=== PATIENT | male | born 1950 | race Caucasian/White ===

== ENCOUNTER 2022-05-10 14:29 | Inpatient (IN) | payer OTHER ==
[2022-05-10] MEDS ORDERED: ASPIRIN 81 MG CHEWABLE TABLET ONE (14:50)
[2022-05-10] MEDS ORDERED: HEPARIN 5000 UNIT/ML 1 ML VIAL ONE ×2 (14:50→15:32)
[2022-05-10] MEDS ORDERED: CLOPIDOGREL 75 MG TABLET ONE (14:51)
[2022-05-10] MEDS ORDERED: MORPHINE 2 MG/ML SYR ONE (14:51)
[2022-05-10] MEDS ORDERED: ONDANSETRON 4 MG/2 ML VIAL ONE (14:51)
[2022-05-10] MEDS ORDERED: NA CHLORIDE 0.9% 1,000 ML ONE (14:52)
[2022-05-10] MEDS ORDERED: ATROPINE SULF 1 MG/10 ML SYR IV ONE (14:55)
[2022-05-10] MEDS ORDERED: HEPARIN 10,000 UNIT/10 ML VIAL IV ONE (14:55)
[2022-05-10] MEDS ORDERED: FENTANYL CITR 100 MCG/2 ML ONE (14:55)
[2022-05-10] MEDS ORDERED: MIDAZOLAM HCL 2 MG/2 ML INJ ONE (14:55)
[2022-05-10] MEDS ORDERED: TICAGRELOR 90 MG TABLET PO ONE (14:56)
--- NOTE | 2022-05-10 14:57 | EDPHYS ---
Physician Documentation [facility] Name: Navjot Meneses Age: 72 yrs Sex: Male : 1950 Arrival Date: 05/10/2022 Time: 14:32 Bed 2 Private MD: ED Physician Darin Camacho HPI: 05/10 14:51 This 72 yrs old Male presents to ER via Unassigned with complaints of Chest darrick Pain. 14:51 The patient or guardian reports chest pain that is located primarily in the substernal darrick area. Onset: at 13:30. The pain does not radiate. Associated signs and symptoms: The patient has no apparent associated signs or symptoms. The chest pain is described as a heaviness, a pressure. Duration: The patient or guardian reports a single episode, that is still ongoing. Modifying factors: The symptoms are alleviated by nothing. the symptoms are aggravated by activity, deep breath, exertion. Severity of pain: At its worst the pain was moderate in the emergency department the pain has resolved. The patient has not experienced similar symptoms in the past. Historical: - Allergies: 15:04 PENICILLINS; iw 15:04 Sulfa (Sulfonamide Antibiotics); iw - PMHx: 15:05 neuropathy; iw - Immunization history:: Adult Immunizations up to date. - Social history:: Smoking status: Patient reports the use of cigarette tobacco products, smokes one pack cigarettes per day. - Family history:: not pertinent. ROS: 14:51 Constitutional: Negative for fever, chills, and weight loss, Eyes: Negative for injury, darrick pain, redness, and discharge, ENT: Negative for injury, pain, and discharge, Neck: Negative for injury, pain, and swelling, Respiratory: Negative for shortness of breath, cough, wheezing, and pleuritic chest pain, Abdomen/GI: Negative for abdominal pain, nausea, vomiting, diarrhea, and constipation, Back: Negative for injury and pain, : Negative for injury, bleeding, discharge, and swelling, MS/Extremity: Negative for injury and deformity, Skin: Negative for injury, rash, and discoloration, Neuro: Negative for headache, weakness, numbness, tingling, and seizure, Psych: Negative for depression, anxiety, suicide ideation, homicidal ideation, and hallucinations, Allergy/Immunology: Negative for hives, rash, and allergies, Endocrine: Negative for neck swelling, polydipsia, polyuria, polyphagia, and marked weight changes, Hematologic/Lymphatic: Negative for swollen nodes, abnormal bleeding, and unusual bruising. 14:51 Cardiovascular: Positive for chest pain, of the chest. Exam: 14:51 Constitutional: This is a well developed, well nourished patient who is awake, alert, darrick and in no acute distress. Head/Face: Normocephalic, atraumatic. Eyes: Pupils equal round and reactive to light, extra-ocular motions intact. Lids and lashes normal. Conjunctiva and sclera are non-icteric and not injected. Cornea within normal limits. Periorbital areas with no swelling, redness, or edema. ENT: Nares patent. No nasal discharge, no septal abnormalities noted. Tympanic membranes are normal and external auditory canals are clear. Oropharynx with no redness, swelling, or masses, exudates, or evidence of obstruction, uvula midline. Mucous membranes moist. Neck: Trachea midline, no thyromegaly or masses palpated, and no cervical lymphadenopathy. Supple, full range of motion without nuchal rigidity, or vertebral point tenderness. No Meningismus. Chest/axilla: Normal chest wall appearance and motion. Nontender with no deformity. No lesions are appreciated. Respiratory: Lungs have equal breath sounds bilaterally, clear to auscultation and percussion. No rales, rhonchi or wheezes noted. No increased work of breathing, no retractions or nasal flaring. Abdomen/GI: Soft, non-tender, with normal bowel sounds. No distension or tympany. No guarding or rebound. No evidence of tenderness throughout. Back: No spinal tenderness. No costovertebral tenderness. Full range of motion. Male : Normal genitalia with no discharge or lesions. Skin: Warm, dry with normal turgor. Normal color with no rashes, no lesions, and no evidence of cellulitis. MS/ Extremity: Pulses equal, no cyanosis. Neurovascular intact. Full, normal range of motion. Neuro: Awake and alert, GCS 15, oriented to person, place, time, and situation. Cranial nerves II-XII grossly intact. Motor strength 5/5 in all extremities. Sensory grossly intact. Cerebellar exam normal. Normal gait. Psych: Awake, alert, with orientation to person, place and time. Behavior, mood, and affect are within normal limits. 14:51 Cardiovascular: Rate: normal, Rhythm: regular, Pulses: Pulses are 4+ in bilateral radial, brachial, femoral, popliteal, posterior tibial and and dorsalis pedis arteries.. Heart sounds: normal, Edema: is not appreciated, JVD: is not appreciated. 14:51 ECG was reviewed by the Attending Physician. Vital Signs: 14:58 BP 147 / 82; Pulse 79; Resp 18; Pulse Ox 95% on R/A; iw MDM: 14:38 Patient medically screened. [facility] 05/10 14:40 Order name: Basic Metabolic Panel [facility] 05/10 14:40 Order name: CBC with Diff 05/10 14:40 Order name: LFT's 05/10 14:40 Order name: Magnesium [facility] 05/10 14:40 Order name: NT PRO-BNP [facility] 05/10 14:40 Order name: PT-INR [facility] 05/10 14:40 Order name: Troponin HS [facility] 05/10 14:40 Order name: Lipase [facility] 05/10 14:40 Order name: SARS RAPID [facility] 05/10 14:40 Order name: EKG; Complete Time: 14:55 [facility] 05/10 14:40 Order name: Cardiac monitoring; Complete Time: 14:47 05/10 14:40 Order name: EKG - Nurse/Tech; Complete Time: 14:47 [facility] 05/10 14:40 Order name: IV Saline Lock; Complete Time: 15:03 [facility] 05/10 14:40 Order name: Labs collected and sent; Complete Time: 15:03 [facility] 05/10 14:40 Order name: O2 Per Protocol; Complete Time: 14:47 darrick 05/10 15:02 Order name: CONS Physician Consult [facility] 05/10 14:40 Order name: O2 Sat Monitoring; Complete Time: 14:47 [facility] EC:51 Rate is 77 beats/min. Rhythm is regular. QRS [place] is Normal. HI interval is normal. QRS darrick interval is normal. QT interval is normal. No Q waves. T waves are Normal. ST Segment is elevated in leads II, III, aVF, V3, V4, V5, V6. Clinical impression: Inferior IA - acute. Interpreted by me. Reviewed by me. Administered Medications: 14:45 CANCELLED (Duplicate Order): Aspirin Chewable Tablet 162 mg PO once darrick 14:57 Drug: morphine 2 mg {Note: pain 9/10, rass0.} Route: IVP; Infused Over: 4 mins; Site: ll1 right antecubital; 15:04 Follow up: Response: No adverse reaction; RASS: Alert and Calm (0) ll1 14:57 Drug: Zofran (Ondansetron) 4 mg Route: IVP; Site: right antecubital; ll1 15:04 Follow up: Response: No adverse reaction ll1 14:57 Drug: Brilinta - Ticagrelor 180 mg Route: PO; ll1 15:04 Follow up: Response: No adverse reaction ll1 14:58 Drug: Aspirin Chewable Tablet 324 mg Route: PO; ll1 15:04 Follow up: Response: No adverse reaction ll1 14:58 Drug: NS 0.9% 1000 ml Route: IV; Rate: 1 bolus; Site: right antecubital; ll1 15:03 Follow up: Response: No adverse reaction; IV Status: Infusion continued; IV Intake: [id number] 15:02 CANCELLED (Physician Discretion): morphine 2 mg IVP once over 4 mins ll1 15:02 Not Given (Physician Discretion): Heparin (IA-Bolus No thrombolytic) - HEParin 60 ll1 units/kg IVP once; Max 5000 units 15:02 CANCELLED (Physician Discretion): Heparin (IA Drip) 12 units/kg/hr - (HEParin 11299 ll1 units, D5W 500 ml) IV at calculated rate Per protocol; Max initial rate 1000 units/hr 15:03 CANCELLED (Physician Discretion): NS 0.9% 1000 ml IV at 125 ml/hr continuous ll1 15:03 CANCELLED (Physician Discretion): PlaVIX (clopidogrel) 300 mg PO once ll1 15:03 CANCELLED (Physician Discretion): Tenecteplase 45 mg IV at per protocol once ll1 Disposition Summary: 05/10/22 14:57 Hospitalization Ordered Hospitalization Status: Inpatient Admission darrick Provider: Isrrael gAuilar cha Location: [facility] [employer] darrick Condition: Serious darrick Problem: new darrick Symptoms: are unchanged darrick Bed/Room Type: Standard darrick Room Assignment: darrick Diagnosis - ST elevation (STEMI) myocardial infarction of inferior wall darrick - ST elevation (STEMI) myocardial infarction involving other coronary artery of darrick anterior wall - Chest pain, unspecified darrick - Dyspnea darrick Forms: - Medication Reconciliation Form darrick - SBAR form darrick Signatures: Dispatcher [employer] EDMS Darin Camacho MD MD cha Williams, Irene, RN RN iw Lewis, Lynsay, RN RN ll1 Corrections: (The following items were deleted from the chart) 14:45 14:40 Aspirin Chewable Tablet 162 mg PO once ordered. [facility] 15:02 14:46 morphine 2 mg IVP once over 4 mins ordered. [place] [id number] 15:02 14:48 Heparin (IA Drip) 12 units/kg/hr - (HEParin 36047 units, D5W 500 ml) IV at ll1 calculated rate Per protocol; Max initial rate 1000 units/hr ordered. [facility] 15:03 14:40 Urine Dipstick-Ancillary ordered. [place] [id number] 15:03 14:40 NS 0.9% 1000 ml IV at 125 ml/hr continuous ordered. [place] [id number] 15:03 14:46 PlaVIX (clopidogrel) 300 mg PO once ordered. [place] [id number] 15:03 14:46 Tenecteplase 45 mg IV at per protocol once ordered. [place] [id number] 15:05 14:45 Chest Single View ordered. EDMS EDMS
--- NOTE | 2022-05-10 14:57 | ER ---
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 Coronavirus screen: At this time, the client does not indicate any symptoms associated with coronavirus-19. Onset of symptoms was May 10, 2022. 15:01 Initial Sepsis Screen: Does the patient meet any 2 criteria? No. Patient's initial ll1 sepsis screen is negative. Does the patient have a suspected source of infection? No. Patient's initial sepsis screen is negative. Risk Assessment: Do you want to hurt yourself or someone else? Patient reports no desire to harm self or others. 15:01 Method Of Arrival: Wheelchair ll1 15:01 Acuity: CHRIS 2 ll1 15:02 Ebola Screen: Patient denies travel to an Ebola-affected area in the 21 days before ll1 illness onset. Historical: - Allergies: 15:04 PENICILLINS; iw 15:04 Sulfa (Sulfonamide Antibiotics); iw - PMHx: 15:05 neuropathy; iw - Immunization history:: Adult Immunizations up to date. - Social history:: Smoking status: Patient reports the use of cigarette tobacco products, smokes one pack cigarettes per day. - Family history:: not pertinent. Screenin:02 Abuse screen: Denies threats or abuse. Nutritional screening: No deficits noted. ll1 Tuberculosis screening: No symptoms or risk factors identified. Fall Risk IV access (20 points). Total Matt Fall Scale indicates No Risk (0-24 pts). Assessment: 14:45 General: Appears distressed, Behavior is cooperative, appropriate for age. Pain: ll1 Complains of pain in chest Pain radiates to left arm Quality of pain is described as pressure, Pain began 1 day ago. Cardiovascular: Reports chest pain. 15:03 Reassessment: No changes from previously documented assessment. Patient and/or family ll1 updated on plan of care and expected duration. Pain level reassessed. Patient is alert, oriented x 3, equal unlabored respirations, skin warm/dry/pink. Vital Signs: 14:58 BP 147 / 82; Pulse 79; Resp 18; Pulse Ox 95% on R/A; iw ED Course: 14:32 Patient arrived in ED. am2 14:37 Nataliya Ray RN is Primary Nurse. ll1 14:37 Arm band placed on Patient placed in an exam room, on a stretcher. ll1 14:38 Darin Camacho MD is Attending Physician. darrick 14:56 Isrrael Aguilar MD is Hospitalizing Provider. [facility] 15:01 Triage completed. ll1 15:01 Inserted saline lock: 20 gauge in left forearm, using aseptic technique. Blood ll1 collected. 15:01 Inserted saline lock: 18 gauge in right antecubital area, using aseptic technique. ll1 Patient maintains SpO2 saturation greater than 95% on room air. 15:02 Patient has correct armband on for positive identification. Bed in low position. Call ll1 light in reach. Side rails up X2. Client placed on continuous cardiac and pulse oximetry monitoring. NIBP monitoring applied. campus monitor on. 15:04 No provider procedures requiring assistance completed. Patient admitted, IV remains in ll1 place. Administered Medications: 14:45 CANCELLED (Duplicate Order): Aspirin Chewable Tablet 162 mg PO once [facility] 14:57 Drug: morphine 2 mg {Note: pain 9/10, rass0.} Route: IVP; Infused Over: 4 mins; Site: ll1 right antecubital; 15:04 Follow up: Response: No adverse reaction; RASS: Alert and Calm (0) [facility] 14:57 Drug: Zofran (Ondansetron) 4 mg Route: IVP; Site: right antecubital; 1 15:04 Follow up: Response: No adverse reaction [facility] 14:57 Drug: Brilinta - Ticagrelor 180 mg Route: PO; ll1 15:04 Follow up: Response: No adverse reaction [facility] 14:58 Drug: Aspirin Chewable Tablet 324 mg Route: PO; 1 15:04 Follow up: Response: No adverse reaction [facility] 14:58 Drug: NS 0.9% 1000 ml Route: IV; Rate: 1 bolus; Site: right antecubital; ll1 15:03 Follow up: Response: No adverse reaction; IV Status: Infusion continued; IV Intake: [id number] 15:02 CANCELLED (Physician Discretion): morphine 2 mg IVP once over 4 mins ll1 15:02 Not Given (Physician Discretion): Heparin (NH-Bolus No thrombolytic) - HEParin 60 ll1 units/kg IVP once; Max 5000 units 15:02 CANCELLED (Physician Discretion): Heparin (NH Drip) 12 units/kg/hr - (HEParin 17521 ll1 units, D5W 500 ml) IV at calculated rate Per protocol; Max initial rate 1000 units/hr 15:03 CANCELLED (Physician Discretion): NS 0.9% 1000 ml IV at 125 ml/hr continuous ll1 15:03 CANCELLED (Physician Discretion): PlaVIX (clopidogrel) 300 mg PO once ll1 15:03 CANCELLED (Physician Discretion): Tenecteplase 45 mg IV at per protocol once ll1 Medication: 15:04 VIS not applicable for this client. ll1 Intake: 15:03 IV: 50ml; Total: 50ml. ll1 Outcome: 14:57 Decision to Hospitalize by Provider. darrick 15:05 Admitted to Ge[employer]chn[employer] Technician accompanied by tech, via stretcher, on monitor, with chart, Report ll1 called to bedside report Dr. Leary 15:05 Condition: stable 15:05 Instructed on the need for admit. 15:07 Patient left the ED. ll1 Signatures: Darin Camacho MD MD cha Williams, Irene, VETO RN iw Hilary Sandoval Lynsay, RN RN ll1 Corrections: (The following items were deleted from the chart) 15:07 14:58 BP 147 / 82; Pulse 79bpm; Resp 18bpm; ll1 iw
[2022-05-10] MEDS ORDERED: NA CHLORIDE 0.9% 500 ML ONE ×2 (14:58→17:36)
[2022-05-10 15:11] LABS: Absolute Lymphocytes (CBC) 0.7 K/uL (0.7-4.9); Hematocrit 48.1 % (39.6-49.0); Lymphocytes % 3.2 % (15.3-44.8); MCV 86.7 fL (80-100); MPV 7.4 fL (7.6-11.3); RBC Red Blood Cell Count 5.55 M/uL (4.33-5.43)
[2022-05-10] MEDS ORDERED: NOREPINEPHRINE BITARTRATE/D5W 4 MG/250 ML BAG IV ONE (15:15)
[2022-05-10 15:25] LABS: SARS-CoV-2 Antigen Rapid Res Negative (Negative)
[2022-05-10 15:29] LABS: Albumin 3.4 g/dL (3.4-5.0); Bilirubin Direct 0.1 mg/dL (0-0.2); Bilirubin Total 0.7 mg/dL (0.2-1.0); Magnesium 1.9 mg/dL (1.8-2.4); Potassium 3.8 mmol/L (3.5-5.1)
[2022-05-10] MEDS ORDERED: VERAPAMIL HCL 10 MG/4 ML VIAL IV ONE (15:29)
[2022-05-10] MEDS ORDERED: HEPARIN/D5W 25,000 UNIT/500 ML BAG IV ONE (15:29)
[2022-05-10 15:40] LABS: Troponin High Sensitivity 156.2 pg/mL (<58.9)
[2022-05-10] MEDS ORDERED: HEPA 1000U/500MLS 1,000 UNIT/500 ML BAG IV ONE (15:53)
[2022-05-10] MEDS ORDERED: FUROSEMIDE 20 MG/ 2ML VIAL ONE (16:11)
[2022-05-10 16:56] LABS: Blood Morphology Comment NOT SEEN (NOT SEEN); Platelet Estimate INCR; Toxic Granulation 2+
[2022-05-10] MEDS ORDERED: NITROGLYCERIN 0.4 MG/TAB SL ONE (17:04)
[2022-05-10] MEDS ORDERED: MORPHINE 4 MG/ML SYR ONE (17:11)
[2022-05-10] MEDS ORDERED: ACETAMINOPHEN 325 MG TABLET PO PRN (18:01)
[2022-05-10 18:30] LABS: Protime INR 1.35
--- NOTE | 2022-05-10 18:56 | P.HP ---
Certification for Inpatient Patient admitted to: Inpatient With expected LOS: >2 Midnights Patient will require the following post-hospital care: None Practitioner: I am a practitioner with admitting privileges, knowledge of patient current condition, hospital course, and medical plan of care. Services: Services provided to patient in accordance with Admission requirements found in Title 42 Section 412.3 of the Code of Federal Regulations Patient History Date of Service: 05/10/22 Reason for admission: ST-elevation myocardial infarction History of Present Illness: patient is a 72-year-old gentleman came into the emergency room with substernal chest pain. Pain was mainly in the left breast region with no radiation. Patient was having some shortness of breath. In the emergency room, EKG revealed ST elevation in the inferior leads as well as the lateral leads. Patient was given tenecteplase and aspirin and taken to the cardiac catheterization lab where patient was found to have 99% occlusion of the LAD as well as a 99% occlusion of the rights of coronary artery. Patient has stents placed in both of these arteries. patient was in recovery and is a little lethargic at this time. Patient will be admitted to the hospital. Patient also has a significant occlusion of the left circumflex artery and this will be reassessed on Friday. Will continue monitoring the patient in ICU on a heparin drip and continue with anti-platelet therapy as well as statin therapy. Will monitor the patient's hemodynamics closely. Patient will be admitted to the hospital into the critical care unit. Allergies Penicillins Adverse Reaction (Verified 05/10/22 19:50) Hives/Rash Sulfa (Sulfonamide Antibiotics) Adverse Reaction (Verified 05/10/22 19:50) Hives/Rash - Past Medical/Surgical History -: Neuropathy -: coronary artery disease -: cardiac catheterization with stent placement - Family History Father Family History: Reviewed- Non-Contributory - Social History Smoking Status: Former smoker Alcohol use: No CD- Drugs: No Review of Systems 10-point ROS is otherwise unremarkable Physical Examination - Vital Signs Temperature: 98.7 F Blood Pressure: 124/78 Pulse: 81 Respirations: 17 Pulse Ox (%): 93 - Physical Exam General: Alert, In no apparent distress HEENT: Atraumatic, PERRLA, Mucous membr. moist/pink, EOMI, Sclerae nonicteric Neck: Supple, 2+ carotid pulse no bruit, No LAD, Without JVD or thyroid abnormality Respiratory: Clear to auscultation bilaterally, Normal air movement Cardiovascular: Regular rate/rhythm, Normal S1 S2, No murmurs Gastrointestinal: Normal bowel sounds, Soft and benign, Non-distended, No tenderness Musculoskeletal: No clubbing, No swelling, No tenderness Integumentary: No rashes Neurological: Normal gait, Normal speech, Normal strength at 5/5 x4 extr, Normal tone, Sensation intact, Cranial nerves 3-12 intact, Normal affect Lymphatics: No axilla or inguinal lymphadenopathy Assessment & Plan - Problems (Diagnosis) (1) ST elevation myocardial infarction (STEMI) Current Visit: Yes Status: Acute (2) COPD (chronic obstructive pulmonary disease) Current Visit: Yes Status: Acute Qualifiers: COPD type: emphysema Emphysema type: centrilobular Qualified Code(s): J43.2 - Centrilobular emphysema (3) Asthma Current Visit: Yes Status: Acute Qualifiers: Asthma complication type: unspecified - Plan Plan: 1. Anti-platelet therapy and statin therapy 2. Monitor hemodynamics closely in ICU and continue with beta-harman therapy 3. Continue with the heparin drip per Cardiology recommendation 4. lipid profile in a.m. 5. NPO after midnight Friday night for possible left circumflex stent placement 6. Strict blood pressure and blood sugar control 7. Gi DVT prophylaxis Discharge Plan: Home Plan to discharge in: Greater than 2 days - Advance Directives Does patient have a Living Will: No Does patient have a Durable POA for Healthcare: No - Code Status/Comfort Care Code Status Assessed: Yes Code Status: Full Code Critical Care: No Time Spent Managing PTS Care (In Minutes): 45
--- NOTE | 2022-05-10 19:59 | CON ---
Date of Consultation: 05/10/2022 Reason For Consultation: STEMI. History Of Present Illness: This 72-year-old male arrived to the emergency room around 3 p.m. compla ining of chest pain, pressure like, radiates to the neck and left upper extremity. It started around 1:30 p.m. In the emergency room at 2:50 p.m. EKG was done that showed inferior ST elevation and an anterolateral ST elevation suggestive of STEMI. Patient is not known to have any history of coronary artery disease and does not take medications for any problems. He is a smoker, 1 pack per day for l radha time and never had any cardiac history. Past Medical History: Hypertension. Medications: Refer to reconciliation sheet for detailed list. Allergies: NO KNOWN DRUG ALLERGIES. Family History: No premature coronary artery disease or cancer. Social History: He smokes 1 pack per day. Does not drink or use any drugs. Review of Systems: All systems were reviewed and they were negative except for mentioned in HPI. Physical Examination: Vital Signs: Reviewed. Head And Neck: Pupils are equal and reactive to light. Intact eye movements. No JVD. No cervical lymphadenopathy. Neck: Supple. Thyroid is not enlarged. Lungs: Clear to auscultation bilaterally. No crackles. No accessory muscle use. Heart: Regular rate and rhythm. No extra sounds. Abdomen: Soft, nontender. Bowel sounds positive. No organomegaly. No masses or hernia. No rigidi ty or rebound. Extremities: No edema, clubbing, or cyanosis. Intact pulses. Skin: No rash. Neurologic: Alert, awake, oriented x3. No acute focal deficits appreciated. Lymph Nodes: No cervical or axillary lymphadenopathy. Investigations: Sodium 135, BUN 13, creatinine 1. His troponin initially was 156. NT-proBNP is 242 . White blood count 23.5000, hemoglobin 16.2. EKG showed ST elevation in inferior leads and anterol ateral leads. Assessment And Recommendations: 1.Acute ST-elevation myocardial infarction. I will take the patient urgently to the cardiac cathete rization laboratory for a percutaneous coronary intervention of the culprit lesion responsible for th e acute myocardial infarction. Loaded the patient with aspirin 325 mg, Brilinta 180 mg and with hepa rin and will take the patient urgently for a coronary angiogram and percutaneous coronary interventio n as needed. 2.Hypertension. Blood pressure is acceptable. Continue to monitor. 3.Diabetes, newly diagnosed. The patient will need diabetes education and to be started on metformi n during this hospital stay and also start him on high-dose statin 40 mg of Lipitor daily and we will obtain an echocardiogram on him. /MEHUL Voice ID: [id number] Report ID: [id number]
[2022-05-10] MEDS ORDERED: NITROGLYCERIN/D5W 50 MG/250 ML BTL IV SCH (20:00)
[2022-05-10] MEDS: FAMOTIDINE 20 MG/2 ML VIAL IV SCH (20:11)
[2022-05-10] MEDS: ATORVASTATIN 40 MG TAB PO SCH (20:11)
[2022-05-10] MEDS: MORPHINE 4 MG/ML SYR IV PRN (21:23)
--- NOTE | 2022-05-10 21:35 | OP ---
Date of Procedure: 05/10/2022 Surgeon: ADALBERTO STRAUSS Procedures Performed: 1.Selective coronary angiogram. 2.PCI of the mid LAD, severe stenosis with thrombus, which is a culprit lesion #1 for the CO. I use d a 3.5 x 28 mm Synergy drug-eluting stent. 3.PCI of proximal RCA severe stenosis, which is culprit #2. I used 4.0 x 28 mm Synergy drug-eluting stent. Indication: ST-elevation myocardial infarction, anterolateral, and inferior per EKG. Access: 1.Right radial artery 6-German, closed with TR band. 2.Left femoral artery 6-German sheath was left in place for hemodynamic monitoring. Complications: Small right wrist hematoma that is resolved with manual pressure. Bleeding less than 50 mL. Anesthesia: Total sedation time was 75 minutes. Description Of Procedure: After risks, benefits, and alternatives were explained, the patient agreed to the procedure and signed informed consent. Patient was brought in emergently to the cardiac cath eterization laboratory, prepped and draped in the usual sterile fashion. Tried to access right femor al artery; however, has a total occlusion of the right common iliac, could not go through, then I acc essed the left femoral artery and the same problem happened and limited angiogram showed there is a t otal occlusion of the left common iliac as well. Then, I switched to right radial artery and using p iatric micropuncture kit, obtained access to the right radial artery and placed a 6-German slender sheath and gave systemic heparin to assure ACT level above 250 throughout the procedure and then I to ok a 5-German Doyle 4 catheter in the aortic root, engaged left main, right coronary artery, took sta ndard views, and then decided to fix the LAD first and then the RCA. Both are culprit lesions. It s eemed like there was a thrombus in the mid LAD and a thrombus in the proximal RCA with severe stenosi s and SUZIE 1 flow in both vessels and then I took a 6-German EBU 3.5 guide into the aortic root, enga ged left main, took short Runthrough into the LAD, passed the area of stenosis. Lesion was pre-dilat ed and it yielded very well, expanded very well, and then I placed 3.5 x 28 mm Synergy drug-eluting s tent, improving the flow to SUZIE-3 flow and then I exchanged for a 6-German JR4 guide and engaged the RCA and took a run-through wire and placed in the distal RCA. Proximal RCA was pre-dilated and then placed 4.0 x 28 mm Synergy drug-eluting stent with excellent results and SUZIE-3 flow. Stent placed in the RCA as well. I then removed the guide and sheath and placed TR band for good hemostasis and I kept the left femoral sheath for hemodynamic monitoring. The patient tolerated the procedure very w ell and was in stable condition at the end of procedure. Findings: 1.Left main is large and normal. 2.LAD proximally is normal, then the mid, there is a severe 99% stenosis with visible thrombus, stat us post successful PCI as above, restoring SUZIE-3 flow and then the LAD is with diffuse 10% to 20% st enosis. 3.Left circumflex: After the takeoff of the OM1 branch there is a 90% stenosis, very long lesion an d then the RCA has proximal 99% stenosis with a thrombus, status post successful PCI as above, restor ing the circulation. Conclusion: 1.Severe mid LAD stenosis, which is culprit #1 lesion, status post successful PCI as above. 2.Severe proximal RCA stenosis, which is culprit #2, status post successful PCI as above. 3.Severe mid left circumflex stenosis, which will be staged, to be done early next week. Plan: Brilinta, aspirin, and statin. Keep on nitroglycerin drip overnight and we will start him on heparin drip also to keep it over through the weekend after the TR band is removed and the heparin dr ip to be started like 2 hours after removing the TR band and I will follow the patient in the hospital. Please try to start beta harman low dose at 12.5 mg twice a day and low-dose OANH inhibitor 5 mg daily. SR/MODL Voice ID: [id number] Report ID: [id number]
[2022-05-10] MEDS: ONDANSETRON 4 MG/2 ML VIAL IV PRN (21:36)
[2022-05-10] MEDS ORDERED: HEPARIN/D5W 25,000 UNIT/500 ML BAG IV SCH (22:30)
[2022-05-11] MEDS: MORPHINE 4 MG/ML SYR IV PRN ×2 (01:54→19:15)
[2022-05-11 03:14] LABS: Absolute Lymphocytes (CBC) 1.2 K/uL (0.7-4.9); Hematocrit 44.3 % (39.6-49.0); Lymphocytes % 5.8 % (15.3-44.8); MCV 85.9 fL (80-100); MPV 7.2 fL (7.6-11.3); RBC Red Blood Cell Count 5.16 M/uL (4.33-5.43)
[2022-05-11 03:29] LABS: Potassium 3.6 mmol/L (3.5-5.1)
[2022-05-11] MEDS: METOPROLOL TAR 25 MG TAB PO SCH ×2 (05:30→18:00)
[2022-05-11] MEDS: TICAGRELOR 90 MG TABLET PO SCH ×4 (06:00→21:20)
--- NOTE | 2022-05-11 07:31 | RAD REPORT ---
EXAM DESCRIPTION: Iris Single View05/11/2022 6:19 am CLINICAL HISTORY: Chest pain COMPARISON: none FINDINGS: The lungs appear clear of acute infiltrate. The heart is normal size IMPRESSION: No acute abnormalities displayed
[2022-05-11] MEDS ORDERED: INFLUENZA VACCINE (for 6+ mo) 0.5 ML DOSE IMVAC ONE (08:00)
[2022-05-11] MEDS ORDERED: PNEUMOCOCCAL VACCINE 0.5 ML IMVAC ONE (08:00)
[2022-05-11] MEDS ORDERED: ASPIRIN EC 81 MG TAB PO SCH (09:00)
[2022-05-11] MEDS: FAMOTIDINE 20 MG/2 ML VIAL IV SCH ×2 (09:25→21:20)
[2022-05-11] MEDS: ASPIRIN EC 81 MG TAB PO SCH (09:25)
--- NOTE | 2022-05-11 11:29 | P.PN ---
Subjective Date of Service: 05/11/22 Subjective: No new changes, No C/O voiced, Improving Review of Systems 10-point ROS is otherwise unremarkable Physical Examination - Vital Signs Temperature: 98.7 F Blood Pressure: 124/78 Pulse: 81 Respirations: 17 Pulse Ox (%): 93 - Physical Exam General: Alert, In no apparent distress, Oriented x3 Respiratory: Diminished Cardiovascular: Regular rate/rhythm, Normal S1 S2, No murmurs Gastrointestinal: Normal bowel sounds, Soft and benign, Non-distended, No tenderness Musculoskeletal: No clubbing, No swelling, No tenderness Neurological: Normal speech, Normal tone, Normal affect Lymphatics: No axilla or inguinal lymphadenopathy - Studies Medications List Reviewed: Yes Assessment & Plan - Problems (Diagnosis) (1) ST elevation myocardial infarction (STEMI) Current Visit: Yes Status: Acute (2) COPD (chronic obstructive pulmonary disease) Current Visit: Yes Status: Acute Qualifiers: COPD type: emphysema Emphysema type: centrilobular Qualified Code(s): J43.2 - Centrilobular emphysema (3) Asthma Current Visit: Yes Status: Acute Qualifiers: Asthma complication type: unspecified - Plan Plan: 1. Anti-platelet therapy and statin therapy 2. Monitor hemodynamics closely in ICU and continue with beta-harman therapy 3. Continue with the nitro drip per Cardiology recommendation 4. lipid profile completed 5. NPO after midnight Friday night for possible left circumflex stent placement 6. Strict blood pressure and blood sugar control 7. Gi DVT prophylaxis - Advance Directives Does patient have a Living Will: No Does patient have a Durable POA for Healthcare: No - Code Status/Comfort Care Code Status: Full Code
[2022-05-11] MEDS ORDERED: HEPARIN/D5W 25,000 UNIT/500 ML BAG IV SCH (12:00)
--- NOTE | 2022-05-11 16:29 | PN ---
Date of Progress Note: 05/11/2022 Subjective: Seen by bedside. Chest pain is significantly better. Review of Systems: Mild chest pain still present, more of soreness. No nausea, vomiting, diarrhea. No abdominal pain. No dysuria, polyuria, or urinary urgency. He has some mild hematuria. All other systems reviewed a nd they were negative. Physical Examination: Vital Signs: Temperature is 98.4, pulse 68, breathing at 16, blood pressure was 124/63, saturating 9 7% on room air. General: Pleasant, elderly male, in no apparent distress. Head and Neck: Pupils are equal, reactive to light. Intact eye movements. No JVD. No cervical lym phadenopathy. Neck is supple. Thyroid is not enlarged. Lungs: Clear to auscultation bilaterally. No rhonchi, wheezing, or crackles. No accessory muscle u se. Heart: Regular rate and rhythm with no extra sounds. Abdomen: Soft, nontender. Bowel sounds positive. No organomegaly. No masses or hernia. No rigidi ty or rebound. Extremities: No edema, clubbing, or cyanosis. Intact pulses. Skin: No rash. Neurologic: Alert, awake, oriented x3. No acute focal deficits appreciated. Investigations: His troponin earlier this morning was 22,711 and BUN is 10, creatinine 0.86. White blood cell count is 21,000 and hemoglobin 15.1. Assessment And Recommendations: 1.Acute myocardial infarction by EKG. It is an ST-elevation; however, during coronary angiogram, he had 99% occlusion of the RCA and the LAD, status post successful PCI of both arteries. He still has 90% occlusion of the left circumflex, probably that is causing his pain. We will plan for a repeat coronary angiogram on Friday and do a PCI of the left circumflex. Meanwhile, continue Brilinta and a spirin and heparin drip throughout the weekend and high-dose statin. 2.Severe peripheral vascular disease. He has total occlusion of bilateral iliac arteries. He will need to have peripheral angiogram to be done from the radial artery, which we will plan to do in the near future. 3.The patient is smoker. He was counseled against smoking and he verbalized understanding. 4.Diabetes, newly diagnosed and being managed by primary physician. /MEHUL Voice ID: [id number] Report ID: [id number]
--- NOTE | 2022-05-11 16:54 | EKG ---
Test Date: 2022-05-10 Test Time: 14:40:14 [employer] Technician: MARIJA MEASUREMENT RESULTS: Intervals: Rate: 77 AK: 200 QRSD: 92 QT: 370 QTc: 418 [place]: P: 61 AK: 200 QRS: -25 T: 81 INTERPRETIVE STATEMENTS: Normal sinus rhythm ST elevation, consider anterolateral injury or acute infarct ST elevation, consider inferior injury or acute infarct ACUTE ID / STEMI Abnormal ECG No previous ECG available for comparison Electronically Signed On 05-11-22 16:53:18 CDT by Rico Leary
[2022-05-11] MEDS: ATORVASTATIN 40 MG TAB PO SCH (21:20)
[2022-05-12] MEDS: MORPHINE 4 MG/ML SYR IV PRN ×2 (01:30→09:05)
[2022-05-12 04:55] LABS: Absolute Lymphocytes (CBC) 1.8 K/uL (0.7-4.9); Hematocrit 44.2 % (39.6-49.0); Lymphocytes % 8.6 % (15.3-44.8); MCV 86.3 fL (80-100); MPV 7.4 fL (7.6-11.3); RBC Red Blood Cell Count 5.12 M/uL (4.33-5.43)
[2022-05-12 05:16] LABS: Troponin High Sensitivity 8129.1 pg/mL (<58.9)
[2022-05-12] MEDS: METOPROLOL TAR 25 MG TAB PO SCH ×2 (05:33→18:02)
--- NOTE | 2022-05-12 07:46 | RAD REPORT ---
EXAM DESCRIPTION: RAD - Chest Single View - 05/12/2022 6:33 am CLINICAL HISTORY: pneumonia COMPARISON: 05/11/2022 FINDINGS: Lines: None. Lungs: Worsening bilateral ill-defined opacities, best seen in the upper lobes. Pleural: No significant pleural effusions or pneumothorax. Cardiac: The heart size is within normal limits. Mediastinum: Within normal limits. Bones: No acute fractures. Other: None IMPRESSION: Poorly defined airspace opacities bilaterally concerning for pneumonia.
[2022-05-12] MEDS: FAMOTIDINE 20 MG/2 ML VIAL IV SCH ×2 (08:20→20:34)
[2022-05-12] MEDS: ASPIRIN EC 81 MG TAB PO SCH (08:21)
[2022-05-12] MEDS: TICAGRELOR 90 MG TABLET PO SCH ×2 (08:21→20:35)
[2022-05-12] MEDS: CEFTRIAXONE 1,000 MG in NA CHLORIDE 0.9% 50 ML IVPB SCH (14:36)
[2022-05-12 17:01] LABS: Absolute Lymphocytes (CBC) 1.6 K/uL (0.7-4.9); Hematocrit 46.2 % (39.6-49.0); Lymphocytes % 8.2 % (15.3-44.8); MCV 86.9 fL (80-100); MPV 7.6 fL (7.6-11.3); RBC Red Blood Cell Count 5.31 M/uL (4.33-5.43)
--- NOTE | 2022-05-12 19:05 | P.PN ---
Date of Service: 05/12/22 Subjective Patient is a 72-year-old gentleman who came to the hospital with an acute coronary syndrome. Patient had ST elevation myocardial infarction. ST elevation mainly in the inferior lateral leads. Patient was taken to the cardiac Admissions Assistant immediately and had stents placed in the right coronary artery and left anterior descending artery. These were 99% occluded. Patient also has a significant lesion of the left circumflex which will be repaired on Friday. Patient has developed some hematuria. Heparin drip has been placed on hold. We did reach out to urology but they are not on-call. We will continue to monitor and patient may need bladder irrigation. Hemoglobin is stable. Urine output is adequate. Once blood pressure improves we may try to diurese a little bit more aggressively. We may do a bladder ultrasound to further evaluate hematuria. Review of Systems 10-point ROS is otherwise unremarkable Physical Examination - Vital Signs Reviewed - Physical Exam General: Alert, In no apparent distress, Oriented x3 Respiratory: Diminished Cardiovascular: Regular rate/rhythm, Normal S1 S2, No murmurs Gastrointestinal: Normal bowel sounds, Soft and benign, Non-distended, No tenderness Musculoskeletal: No clubbing, No swelling, No tenderness Neurological: Normal speech, Normal tone, Normal affect Assessment & Plan - Problems (Diagnosis) (1) ST elevation myocardial infarction (STEMI) Current Visit: Yes Status: Acute (2) COPD (chronic obstructive pulmonary disease) Current Visit: Yes Status: Acute Qualifiers: COPD type: emphysema Emphysema type: centrilobular Qualified Code(s): J43.2 - Centrilobular emphysema (3) Asthma Current Visit: Yes Status: Acute Qualifiers: Asthma complication type: unspecified (4) Hematuria Current Visit: Yes Status: Acute (5) Leukocytosis and thrombocytosis Current Visit: Yes Status: Acute - Plan Plan: 1. Anti-platelet therapy and statin therapy 2. Continue monitoring hemodynamics closely in ICU and continue with beta- harman therapy(held this AM for low BP) 3. DC nitro drip per Cardiology recommendation; DC heparin 4. Bladder US 5. NPO after midnight for possible left circumflex stent placement 6. Strict blood pressure and blood sugar control 7. GI/DVT prophylaxis
[2022-05-12] MEDS: ATORVASTATIN 40 MG TAB PO SCH (20:34)
[2022-05-12 20:39] LABS: Platelet Estimate INCR
[2022-05-12 20:44] LABS: Anisocytosis SLIGHT; Blood Morphology Comment NOTED (NOT SEEN); Platelets, Giant PRESENT
[2022-05-12 20:45] LABS: Toxic Granulation PRESENT
--- NOTE | 2022-05-12 22:25 | RAD REPORT ---
EXAM DESCRIPTION: US - Urinary Bladder - 05/12/2022 10:14 pm CLINICAL HISTORY: hematuria COMPARISON: No comparisons FINDINGS: Limited visualization of the bladder as it is incompletely distended and overlying bowel g as. Mildly complex bladder contents are present. A Harris catheter is present. IMPRESSION: The bladder is under distended with Harris catheter in place. The bladder contents are mi ldly complex which may be blood and/or debris.
--- NOTE | 2022-05-12 23:03 | PN ---
Date of Progress Note: 05/12/2022 Subjective: Seen at bedside, doing clinically much better. Troponin is coming down nicely. Pain is better. Review of Systems: Mild on and off chest pain. No nausea, vomiting, or diarrhea. No abdominal pain. No dysuria, polyu corinne, or urinary urgency. No skin rash. All other systems reviewed and are negative. Physical Examination: Vital Signs: Reviewed. Head And Neck: Pupils are equal and reactive to light. Intact eye movements. No JVD. No cervical lymphadenopathy. Neck: Supple. Thyroid is not enlarged. Lungs: Clear to auscultation bilaterally. No rhonchi, wheezing, or crackles. No accessory muscle u se. Heart: Regular rate and rhythm. No extra sounds. Abdomen: Soft, nontender. Bowel sounds positive. No organomegaly. No masses or hernia. No rigidi ty or rebound. Extremities: No clubbing or cyanosis. Intact pulses. Skin: No rash. Neurologic: Alert, awake, oriented x3. No acute focal deficits appreciated. Investigations: BUN is 11, creatinine 0.8. Troponin is 8129, down from 22,000 range. Assessment And Recommendation: 1.Acute ST-elevation myocardial infarction by EKG on cardiac cath. He had 99% occluded left anterio r descending and right coronary artery status post successful percutaneous coronary intervention of [facility] and he has 90% stenosis of left circumflex that needs to be taken care of. Keep the patient n.p. o. past midnight. Plan for coronary angiogram and percutaneous coronary intervention of left circumf michelle tomorrow. Also okay to discontinue heparin drip now due to hematuria, but continue Plavix and Br ilinta. 2.Hematuria. To stop heparin and monitor and get Urology consultation. 3.Elevated NT-proBNP. The patient has developed congestive heart failure from the acute heart attac k. Please obtain echocardiogram tomorrow morning. SR/MODL Voice ID: [id number] Report ID: [id number]
[2022-05-13 06:12] LABS: Absolute Lymphocytes (CBC) 1.5 K/uL (0.7-4.9); Hematocrit 43.4 % (39.6-49.0); Lymphocytes % 7.5 % (15.3-44.8); MCV 86.6 fL (80-100); MPV 7.5 fL (7.6-11.3); RBC Red Blood Cell Count 5.01 M/uL (4.33-5.43)
[2022-05-13] MEDS: METOPROLOL TAR 25 MG TAB PO SCH ×2 (06:23→18:34)
[2022-05-13 06:33] LABS: Albumin 2.6 g/dL (3.4-5.0); Bilirubin Total 0.8 mg/dL (0.2-1.0); Potassium 4.2 mmol/L (3.5-5.1); Protein, Total 6.2 g/dL (6.4-8.2)
[2022-05-13 07:32] LABS: Platelet Estimate ADEQ
[2022-05-13 07:33] LABS: Blood Morphology Comment NOT SEEN (NOT SEEN)
[2022-05-13] MEDS: FAMOTIDINE 20 MG/2 ML VIAL IV SCH ×2 (07:59→20:02)
[2022-05-13] MEDS: AZITHROMYCIN IV 500 MG in NA CHLORIDE 0.9% 250 ML IVPB SCH (07:59)
[2022-05-13] MEDS: TICAGRELOR 90 MG TABLET PO SCH ×2 (08:00→20:03)
[2022-05-13] MEDS: CEFTRIAXONE 1,000 MG in NA CHLORIDE 0.9% 50 ML IVPB SCH (08:00)
[2022-05-13] MEDS: ASPIRIN EC 81 MG TAB PO SCH (08:01)
[2022-05-13] MEDS: MORPHINE 4 MG/ML SYR IV PRN (08:13)
[2022-05-13] MEDS ORDERED: HYDROCODONE/APAP 5/325 MG TAB PO ONE (09:16)
--- NOTE | 2022-05-13 09:21 | RAD REPORT ---
EXAM DESCRIPTION: RAD - Chest Single View - 05/13/2022 9:13 am CLINICAL HISTORY: dyspnea Chest pain. COMPARISON: Chest Single View dated 05/12/2022; Chest Single View dated 05/11/2022 FINDINGS: Portable technique limits examination quality. Bilateral pulmonary opacities have mildly improved since yesterday's study. The heart is normal in si ze. No displaced fractures.Aortic atherosclerosis. IMPRESSION: Mild improvement in lung aeration since yesterday's examination.
--- NOTE | 2022-05-13 10:16 | P.PN ---
Subjective Date of Service: 05/13/22 Chief Complaint: ST-elevation myocardial infarction No acute events overnight. This morning, he reports that he has been experiencing shortness of breath, which is significantly worse when lying flat. He denies any current chest pain or palpitations. He denies any bleeding or pain at the [facility] left groin site. Review of Systems 10-point ROS is otherwise unremarkable Respiratory: Shortness of Breath Cardiovascular: Orthopnea Physical Examination - Vital Signs Temperature: 97.4 F Blood Pressure: 113/88 Pulse: 66 Respirations: 18 Pulse Ox (%): 96 - Physical Exam General: Alert, In no apparent distress, Oriented x3 HEENT: Atraumatic, PERRLA, Mucous membr. moist/pink, EOMI, Sclerae nonicteric Neck: Supple, JVD not distended Respiratory: Diminished, Crackles/rales (bibasilar) Cardiovascular: Regular rate/rhythm, No gallops, No rubs, No murmurs, Edema (trace bilateral) Capillary refill: <2 Seconds Gastrointestinal: Normal bowel sounds, Soft and benign, Non-distended, No tenderness, No rebound, No guarding Musculoskeletal: No clubbing, Other (left groin catheterization site is clean, dry, and intact, without bruising/hematoma) Integumentary: No rashes Neurological: Normal speech, Cranial nerves 3-12 intact, Normal affect - Studies Medications List Reviewed: Yes Assessment And Plan - Plan # Coronary Artery Disease with Acute ST-Segment Elevation Myocardial Infarction s/p PCI x 2 to LAD and RCA - Evaluation thus far: - Original EKG: met STEMI criteria, trend - Serial troponin: 156.2 -> 3919.1 -> 72278.7 -> 46594.4 -> 8129.1 - Transthoracic echocardiogram = pending - Chest x-ray = "mild improvement in lung aeration since yesterday's examination." - Management plan: - Consult Cardiology - recommendations appreciated - [facility] 05/10/2022: (1) s/p NAYAN to mid-LAD and (2) s/p NAYAN to proximal RCA - Plan for [facility] today to address LCX - Continue aspirin, atorvastatin, ticagrelor, metoprolol - Started lisinopril # Sepsis likely secondary to Bilateral Community-Acquired Pneumonia He meets sepsis criteria based on RR > 20 breaths/min and WBC > 12,000, and the suspected source is pneumonia. - Sepsis order set was initiated - Initial Lactate was 0.6 - Blood cultures drawn - Broad spectrum antibiotics started: Ceftriaxone + Azithromycin - In regards to fluids: - 30 mL/kg of IV fluids was not administered given SBP > 90, MAP > 65, lactic acid < 4 # Acute Asthma/COPD Exacerbation (resolved) Noted on prior notes, and seems to be improving. Does not appear to be in an acute exacerbation at this time. - Consulted Respiratory Therapy - Supplemental oxygen to maintain SpO2 > 92% - Sera q4-6hr PRN Kerwin Stubbs M.D. Discharge Plan: Home Plan to discharge in: 48 Hours
[2022-05-13] MEDS: lisinopriL 5 MG TAB PO SCH (12:10)
[2022-05-13] MEDS ORDERED: FENTANYL CITR 100 MCG/2 ML ONE (15:02)
[2022-05-13] MEDS ORDERED: MIDAZOLAM HCL 2 MG/2 ML INJ ONE (15:02)
[2022-05-13] MEDS ORDERED: HEPA 1000U/500MLS 2,000 UNIT/1,000 ML BAG IV ONE (15:02)
[2022-05-13] MEDS ORDERED: VERAPAMIL HCL 10 MG/4 ML VIAL IV ONE (15:03)
[2022-05-13] MEDS ORDERED: HEPARIN 10,000 UNIT/10 ML VIAL IV ONE (15:03)
[2022-05-13] MEDS ORDERED: ATROPINE SULF 1 MG/10 ML SYR IV ONE (15:03)
[2022-05-13] MEDS ORDERED: HEPARIN 5000 UNIT/ML 1 ML VIAL ONE (15:03)
[2022-05-13] MEDS ORDERED: NITROGLYCERIN 100 MCG/ML SYR (for cath lab use only) IV ONE (15:03)
[2022-05-13] MEDS ORDERED: NA CHLORIDE 0.9% 500 ML ONE (15:30)
--- NOTE | 2022-05-13 18:44 | PN ---
Date of Progress Note: 05/13/2022 Subjective: Seen by bedside, doing clinically better. Chest pain is resolved. Review of Systems: No chest pain, shortness of breath, orthopnea, cough. No nausea, vomiting, diarrhea. No abdominal p ain. No dysuria, polyuria, or urinary urgency. No skin rash, headache. All other systems reviewed and they were negative. Physical Examination: Vital Signs: Reviewed. Head and Neck: Pupils are equal, reactive to light. Intact eye movements. No JVD. No cervical lym phadenopathy. Neck is supple. Thyroid is not enlarged. Lungs: Clear to auscultation bilaterally. No rhonchi, wheezing, or crackles. No accessory muscle u se. Heart: Regular rate and rhythm. No extra sounds. Abdomen: Soft, nontender. Bowel sounds positive. No organomegaly. No masses or hernia. No rigidi ty or rebound. Extremities: No clubbing or cyanosis. Intact pulses. Skin: No rash. Neurologic: Alert, awake, oriented x3. No acute focal deficits appreciated. Lymph Nodes: No cervical or axillary lymphadenopathy. Investigations: Labs were reviewed. Assessment And Recommendations: 1.ST-elevation myocardial infarction. He had ST-elevation myocardial infarction on EKG and the cath eterization, he had 99% with thrombosed mid LAD and proximal RCA, status post percutaneous coronary i ntervention of both. Still has residual significant left circumflex disease. We will plan for coron debra angiogram, percutaneous coronary intervention today. Continue Brilinta and aspirin and continue metoprolol and low-dose OANH inhibitor as well as statin. 2.Congestive heart failure, this is acute, due to the heart attack. Again, continue metoprolol and lisinopril, titrate as the blood pressure tolerates and please obtain an echocardiogram today. 3.Diabetes. Continue to check sugars and cover with regular insulin sliding scale. SR/MODL Voice ID: [id number] Report ID: [id number]
[2022-05-13] MEDS: ATORVASTATIN 40 MG TAB PO SCH (20:02)
--- NOTE | 2022-05-14 02:53 | OP ---
Date of Procedure: 05/13/2022 Surgeon: ADALBERTO STRAUSS Procedures Performed: 1.Selective coronary angiogram. 2.PCI of severe proximal mid and to distal left circumflex. I used 2.75 x 38 mm Synergy drug-elutin g stent. Indication: Recent myocardial infarction with no severe left circumflex distal ongoing chest pain. Access: Right radial artery 6-Polish closed with TR band. Complications: None. Anesthesia: Total sedation time was 45 minutes, used fentanyl and Versed. Description Of Procedure: After risks, benefits, and alternatives were explained, patient agreed to procedure and signed informed consent. Patient was then brought into the cardiac catheterization lab oratory, prepped and draped in sterile fashion. Then I accessed right radial artery using pediatric micropuncture kit, placed a 6-Polish Slender sheath, and took a 5-Polish [place] 4 catheter in the aort ic root, engaged left main and right coronary artery, took standard views and advanced the catheter o ivette the wire into the LV and measured LVEDP and pullback did not record any gradient. Then I exchang ed for a 6-Polish EBU 3.5 guide to engage the left main and then took short Runthrough wire into the left circumflex. Lesions were pre-dilated and expanded very well. Then with the help of GuideLiner, I advanced a 2.75 x 38 mm Synergy drug-eluting stent with excellent results. Final angiogram was sa tisfactory. Maybe he has a residual 40% ostial left circ, which was left alone. Then I removed the wire and the guide and sheath and placed TR band with good hemostasis. Findings: 1.Left main is large and normal. 2.LAD: Proximal to mid stent is patent. Diagonal 1 and diagonal 2 appear to be with mild disease, 7% diffusely and after diagonal 2, there is a long segment of 50% stenosis. 3.Left circumflex is with proximal mid to distal diffuse 90% stenosis status post successful PCI as above. OM1 branch is very small. 4.RCA: Large dominant with proximal patent stent and in the distal RCA, there is about 40% stenosis and it is a dominant vessel. 5.LVEDP elevated at 20 mmHg. Conclusion: 1.Patent left circumflex and left anterior descending stent. 2.Severe left circumflex stenosis status post successful percutaneous coronary intervention as above . 3.Elevated left ventricular end-diastolic pressure. 4.Moderate coronary artery disease. Plan: 1.Clarata, aspirin, and high-dose statin. 2.Initiate diuresis with Lasix. 3.Plan for outpatient stress test to evaluate the need for further intervention on the RCA or the LA D and this is to be done as an outpatient. SR/ELINAL Voice ID: [id number] Report ID: [id number]
[2022-05-14 05:01] LABS: Absolute Lymphocytes (CBC) 1.4 K/uL (0.7-4.9); Hematocrit 43.5 % (39.6-49.0); Lymphocytes % 6.9 % (15.3-44.8); MCV 86.5 fL (80-100); MPV 7.6 fL (7.6-11.3); RBC Red Blood Cell Count 5.03 M/uL (4.33-5.43)
[2022-05-14] MEDS ORDERED: FUROSEMIDE 40 MG/4 ML VIAL IV ONE ×2 (05:19→19:00)
[2022-05-14 07:21] LABS: Potassium 4.2 mmol/L (3.5-5.1)
--- NOTE | 2022-05-14 07:41 | ECHO ---
HEIGHT: 5 ft 9 in WEIGHT: 157 lb 0 oz DATE OF STUDY: 05/13/[address]: Isrrael Aguilar MD 2-DIMENSIONAL: YES M.MODE: YES DOPPLER: YES COLOR FLOW: YES TDS: YES PORTABLE: YES DEFINITY: BUBBLE STUDY: DIAGNOSIS: MYOCARDIAL INFARCTION CARDIAC HISTORY: CATHERIZATION: YES SURGERY: NO PROSTHETIC VALVE: NO PACEMAKER: NO MEASUREMENTS (cm) DIASTOLIC (NORMALS) SYSTOLIC (NORMALS) IVSd 1.1 (0.6-1.2) LA Diam 2.4 (1.9-4.0) LVEF 50% LVIDd 4.3 (3.5-5.7) LVIDs 3.0 (2.0-3.5) %FS 30% LVPWd 1.1 (0.6-1.2) Ao Diam 2.8 (2.0-3.7) 2 DIMENSIONAL ASSESSMENT: RIGHT ATRIUM: NORMAL LEFT ATRIUM: NORMAL RIGHT VENTRICLE: NORMAL LEFT VENTRICLE: NORMAL TRICUSPID VALVE: MILD TRICUSPID REGURGITATION MITRAL VALVE: NORMAL PULMONIC VALVE: NORMAL AORTIC VALVE: NORMAL PERICARDIAL EFFUSION: NONE AORTIC ROOT: NORMAL LEFT VENTRICULAR WALL MOTION: MILD APICAL HYPOKINESIS DOPPLER/COLOR FLOW: MILD TRICUSPID REGURGITATION COMMENTS: LOW NORMAL LEFT VENTRICULAR EJECTION FRACTION 50-55%. MILD APICAL HYPOKINESIS. MILD TRICUSPID REGURGITATION. TECHNOLOGIST: CONRADO CHA
[2022-05-14] MEDS: METOPROLOL TAR 25 MG TAB PO SCH ×2 (08:20→18:09)
[2022-05-14] MEDS: CEFTRIAXONE 1,000 MG in NA CHLORIDE 0.9% 50 ML IVPB SCH (08:20)
[2022-05-14] MEDS: ASPIRIN EC 81 MG TAB PO SCH (08:20)
[2022-05-14] MEDS: FAMOTIDINE 20 MG/2 ML VIAL IV SCH (08:20)
[2022-05-14] MEDS: TICAGRELOR 90 MG TABLET PO SCH ×2 (08:21→20:20)
[2022-05-14] MEDS: lisinopriL 5 MG TAB PO SCH ×2 (08:21→09:00)
[2022-05-14] MEDS: AZITHROMYCIN IV 500 MG in NA CHLORIDE 0.9% 250 ML IVPB SCH (08:22)
--- NOTE | 2022-05-14 09:15 | P.PN ---
Subjective Date of Service: 05/14/22 Chief Complaint: ST-elevation myocardial infarction Yesterday, he underwent LHC with NAYAN to proximal mid to distal LCX. He denies any chest pain or palpitations since the procedure. He continues to have shortness of breath with associated orthopnea. Review of Systems 10-point ROS is otherwise unremarkable Respiratory: Shortness of Breath Cardiovascular: Orthopnea Physical Examination - Vital Signs Temperature: 98.1 F Blood Pressure: 100/73 Pulse: 80 Respirations: 18 Pulse Ox (%): 97 - Studies Medications List Reviewed: Yes Assessment And Plan - Plan - Physical Exam General: Alert, In no apparent distress, Oriented x3 HEENT: Atraumatic, PERRLA, Mucous membr. moist/pink, EOMI, Sclerae nonicteric Neck: Supple, JVD not distended Respiratory: Diminished, Crackles/rales (faint bibasilar) Cardiovascular: Regular rate/rhythm, No gallops, No rubs, No murmurs, Edema (trace-1+ bilateral) Capillary refill: <2 Seconds Gastrointestinal: Normal bowel sounds, Soft and benign, Non-distended, No tenderness, No rebound, No guarding Musculoskeletal: No clubbing, Other (left groin catheterization site is clean, dry, and intact, without bruising/hematoma) Integumentary: No rashes Neurological: Normal speech, Cranial nerves 3-12 intact, Normal affect # Coronary Artery Disease with Acute ST-Segment Elevation Myocardial Infarction s/p PCI x 2 to LAD, RCA, and LCX - Evaluation thus far: - Original EKG: met STEMI criteria, trend - Serial troponin: 156.2 -> 3919.1 -> 09864.7 -> 51293.4 -> 8129.1 - Transthoracic echocardiogram = "low normal left ventricular ejection fraction 50-55%. Mild apical hypokinesis. Mild tricuspid regurgitation." - Chest x-ray = "mild improvement in lung aeration since yesterday's examination." - Management plan: - Consult Cardiology and spoke with Dr. Leary - recommendations appreciated - [facility] 05/10/2022: (1) s/p NAYAN to mid-LAD and (2) s/p NAYAN to proximal RCA - [facility] 05/13/2022: s/p NAYAN to LCX - Continue aspirin, atorvastatin, ticagrelor, metoprolol - Started lisinopril - but had to hold given soft BPs # Acute Decompensated Diastolic Congestive Heart Failure with Preserved Ejection Fraction - Consult Cardiology and spoke with Dr. Leary - recommendations appreciated - Recommended IV furosemide for today, and transition to PO this evening/tomorrow morning - Transthoracic echocardiogram = "low normal left ventricular ejection fraction 50-55%. Mild apical hypokinesis. Mild tricuspid regurgitation." - Daily weights - Strict I/O - Cardiac diet, 1.5 L fluid restriction, 2 g Na restriction # Sepsis likely secondary to Bilateral Community-Acquired Pneumonia He meets sepsis criteria based on RR > 20 breaths/min and WBC > 12,000, and the suspected source is pneumonia. - Sepsis order set was initiated - Initial Lactate was 0.6 - Blood cultures drawn - Broad spectrum antibiotics started: Ceftriaxone + Azithromycin - In regards to fluids: - 30 mL/kg of IV fluids was not administered given SBP > 90, MAP > 65, lactic acid < 4 # Acute Asthma/COPD Exacerbation (resolved) Noted on prior notes, and seems to be improving. Does not appear to be in an acute exacerbation at this time. - Consulted Respiratory Therapy - Supplemental oxygen to maintain SpO2 > 92% - Sera q4-6hr PRN Kerwin Stubbs M.D. Discharge Plan: Home Plan to discharge in: 24 Hours
[2022-05-14] MEDS: ATORVASTATIN 40 MG TAB PO SCH (20:20)
[2022-05-14] MEDS: FAMOTIDINE 20 MG TAB PO SCH (20:20)
[2022-05-14] MEDS ORDERED: lisinopriL 5 MG TAB PO SCH (21:00)
[2022-05-14] MEDS: MORPHINE 4 MG/ML SYR IV PRN (21:04)
[2022-05-14] MEDS ORDERED: PHENAZOPYRIDINE 100MG TAB PO ONE ×2 (22:12→22:32)
[2022-05-14] MEDS ORDERED: HYDROMORPHONE HCL 1 MG/ML INJ IV ONE (23:09)
[2022-05-14] MEDS ORDERED: HYDROMORPHONE HCL 0.5 MG/0.5 ML INJ ONE (23:21)
[2022-05-14] MEDS ORDERED: LIDOCAINE JELLY 2% 5 ML SYRINGE TOP STA (23:54)
[2022-05-15 04:58] LABS: Absolute Lymphocytes (CBC) 1.4 K/uL (0.7-4.9); Hematocrit 43.3 % (39.6-49.0); MCV 85.1 fL (80-100); MPV 7.4 fL (7.6-11.3); RBC Red Blood Cell Count 5.08 M/uL (4.33-5.43)
[2022-05-15 05:15] LABS: Potassium 3.8 mmol/L (3.5-5.1)
[2022-05-15] MEDS: METOPROLOL TAR 25 MG TAB PO SCH ×2 (06:11→18:11)
[2022-05-15 06:29] LABS: Platelet Estimate INCR
[2022-05-15 06:30] LABS: Blood Morphology Comment NOT SEEN (NOT SEEN)
[2022-05-15] MEDS: ASPIRIN EC 81 MG TAB PO SCH (08:32)
[2022-05-15] MEDS: TICAGRELOR 90 MG TABLET PO SCH ×2 (08:33→20:32)
[2022-05-15] MEDS: FAMOTIDINE 20 MG TAB PO SCH ×2 (08:33→20:34)
[2022-05-15] MEDS: CEFTRIAXONE 1,000 MG in NA CHLORIDE 0.9% 50 ML IVPB SCH (08:34)
[2022-05-15] MEDS: AZITHROMYCIN IV 500 MG in NA CHLORIDE 0.9% 250 ML IVPB SCH (08:37)
[2022-05-15] MEDS ORDERED: FUROSEMIDE 40 MG TABLET PO SCH ×2 (09:00)
[2022-05-15 12:11] LABS: Specific Gravity 1.013 (1.005-1.030); Urine Bacteria <20 /HPF (<20); Urine Bilirubin NEGATIVE (Negative); Urine Blood 2+ (Negative); Urine Clarity Clear (Clear); Urine Color Yellow (Yellow); Urine Glucose NEGATIVE (Negative); Urine Mucus Slight /HPF (None Seen); Urine Protein NEGATIVE (Negative); Urine RBC 21-50 /HPF (None Seen); Urine Urobilinogen Normal (Normal)
[2022-05-15 12:12] LABS: Urine WBC Clump Rare /HPF (None Seen)
[2022-05-15] MEDS ORDERED: TAMSULOSIN 0.4 MG SR CAP PO SCH (12:48)
[2022-05-15] MEDS: FINASTERIDE 5 MG TAB PO SCH (13:38)
--- NOTE | 2022-05-15 13:50 | P.PN ---
Subjective Date of Service: 05/15/22 Chief Complaint: ST-elevation myocardial infarction He reports that, over the last day, he has been experiencing dysuria. Urinary retention was noted by overnight team, so Harris catheter was re-placed. Review of Systems 10-point ROS is otherwise unremarkable Genitourinary: Dysuria, Frequency, Retention Physical Examination - Vital Signs Temperature: 97.3 F Blood Pressure: 92/59 Pulse: 55 Respirations: 16 Pulse Ox (%): 94 - Studies Medications List Reviewed: Yes Assessment And Plan - Plan - Physical Exam General: Alert, In no apparent distress, Oriented x3 HEENT: Atraumatic, PERRLA, Mucous membr. moist/pink, EOMI, Sclerae nonicteric Neck: Supple, JVD not distended Respiratory: Diminished, Crackles/rales (faint bibasilar) Cardiovascular: Regular rate/rhythm, No gallops, No rubs, No murmurs, Edema (trace-1+ bilateral) Capillary refill: <2 Seconds Gastrointestinal: Normal bowel sounds, Soft and benign, Non-distended, No tenderness, No rebound, No guarding Musculoskeletal: No clubbing, Other (left groin catheterization site is clean, dry, and intact, without bruising/hematoma) Integumentary: No rashes Neurological: Normal speech, Cranial nerves 3-12 intact, Normal affect # Coronary Artery Disease with Acute ST-Segment Elevation Myocardial Infarction s/p PCI x 2 to LAD, RCA, and LCX - Evaluation thus far: - Original EKG: met STEMI criteria, trend - Serial troponin: 156.2 -> 3919.1 -> 98575.7 -> 07527.4 -> 8129.1 - Transthoracic echocardiogram = "low normal left ventricular ejection fraction 50-55%. Mild apical hypokinesis. Mild tricuspid regurgitation." - Chest x-ray = "mild improvement in lung aeration since yesterday's examination." - Management plan: - Consult Cardiology and spoke with Dr. Leary - recommendations appreciated - [facility] 05/10/2022: (1) s/p NAYAN to mid-LAD and (2) s/p NAYAN to proximal RCA - [facility] 05/13/2022: s/p NAYAN to LCX - Continue aspirin, atorvastatin, ticagrelor, metoprolol - Started lisinopril - but had to hold given soft BPs # Acute Decompensated Diastolic Congestive Heart Failure with Preserved Ejection Fraction - Consult Cardiology and spoke with Dr. Leary - recommendations appreciated - Recommended reducing furosemide to 20 mg PO daily - Transthoracic echocardiogram = "low normal left ventricular ejection fraction 50-55%. Mild apical hypokinesis. Mild tricuspid regurgitation." - Daily weights - Strict I/O - Cardiac diet, 1.5 L fluid restriction, 2 g Na restriction # Sepsis likely secondary to Bilateral Community-Acquired Pneumonia He meets sepsis criteria based on RR > 20 breaths/min and WBC > 12,000, and the suspected source is pneumonia. - Sepsis order set was initiated - Initial Lactate was 0.6 - Blood cultures drawn - Broad spectrum antibiotics started: Ceftriaxone + Azithromycin - In regards to fluids: - 30 mL/kg of IV fluids was not administered given SBP > 90, MAP > 65, lactic acid < 4 # Urinary Retention - Harris catheter re-inserted - Consulted Urology - recommendations appreciated - Resume tamsulosin and finasteride as tolerated - Ordered urinalysis and urine cultures given new urinary symptoms # Acute Asthma/COPD Exacerbation (resolved) Noted on prior notes, and seems to be improving. Does not appear to be in an acute exacerbation at this time. - Consulted Respiratory Therapy - Supplemental oxygen to maintain SpO2 > 92% - Sera q4-6hr PRN Kerwin Stubbs M.D.
--- NOTE | 2022-05-15 14:56 | PN ---
Date of Progress Note: 05/14/2022 Subjective: Seen by bedside. Doing well. No chest pain. Status post full revascularization. No s hortness of breath. Review of Systems: No chest pain, shortness of breath, orthopnea, cough, nausea, vomiting, diarrhea. No abdominal pain. No dysuria, polyuria, or urinary urgency. No skin rash, headache. All other systems reviewed and they were negative. Physical Examination: Vital Signs: Reviewed. Temperature is 97.7, pulse 68, breathing at 18, blood pressure 103/58, satur ating 98% on room air. General: Pleasant, elderly male, in no apparent distress. Head and Neck: Pupils are equal, reactive to light. Intact eye movements. No JVD. No cervical lym phadenopathy. Neck is supple. Thyroid is not enlarged. Lungs: Clear to auscultation bilaterally. No rhonchi, wheezing, or crackles. No accessory muscle u se. Heart: Regular rate and rhythm. No extra sounds. Abdomen: Soft, nontender. Bowel sounds positive. No organomegaly. No masses or hernia. No rigidi ty or rebound. Extremities: No edema, clubbing, or cyanosis. Intact pulses. Skin: No rash. Neurologic: Alert, awake, oriented x3. No acute focal deficits appreciated. Investigations: Labs were reviewed. Assessment And Recommendations: 1.Acute ST elevation myocardial infarction, status post full revascularization of the left LAD, left circumflex and RCA, doing very well. Ejection fraction is at the low normal limits. Continue Brili nta and aspirin, high-dose statin. 2.Acute congestive heart failure due to acute heart attack. Continue with a low-dose OANH inhibitor and beta-harman. He was placed on Lasix due to the high LVEDP, cut down the dose to 20 mg daily due to low blood pressure. 3.Dyslipidemia. Continue statin. 4.Smoker. He was counseled against smoking in details. SR/MODL Voice ID: [id number] Report ID: [id number]
--- NOTE | 2022-05-15 15:14 | PN ---
Date of Progress Note: 05/15/2022 Subjective: Seen by bedside. He is asymptomatic. No chest pain or shortness of breath. No nausea, vomiting, diarrhea. No abdominal pain. No dysuria, polyuria, or urinary urgency. No skin rash or headache. All other systems reviewed and they were negative. He had problem with urinary retention. They had to put the Harris back in last night. Review of Systems: All negative except the urinary retention. Physical Examination: Vital signs: Reviewed. Head and Neck: Pupils are equal, reactive to light. Intact eye movements. No JVD. No cervical lym phadenopathy. Neck is supple. Thyroid is not enlarged. Lungs: Clear to auscultation bilaterally. No rhonchi, wheezing, or crackles. No accessory muscle u se. Heart: Regular rate and rhythm. No extra sounds. Abdomen: Soft, nontender. Bowel sounds positive. No organomegaly. No masses or hernia. No rigidi ty or rebound. Extremities: No edema, clubbing, or cyanosis. Intact pulses. Skin: No rash. Neurologic: Alert, awake, oriented x3. No acute focal deficits appreciated. Lymph Nodes: No cervical or axillary lymphadenopathy. Investigations: BUN 23, creatinine 0.86, and sodium 133. Assessment And Recommendations: 1.Acute ST-elevation myocardial infarction, status post successful percutaneous coronary interventio n of all culprit vessels and vessel. Doing well. Continue Brilinta and aspirin. 2.Acute congestive heart failure due to the acute heart attack. Appears to be doing much better now . Decrease Lasix 20 mg daily and continue metoprolol and OANH inhibitor if the blood pressure allows. 3.Urinary retention. Consult Urology. SR/MODL Voice ID: [id number] Report ID: [id number]
[2022-05-15] MEDS: ATORVASTATIN 40 MG TAB PO SCH (20:32)
[2022-05-16 04:01] LABS: Potassium 3.8 mmol/L (3.5-5.1)
[2022-05-16] MEDS: METOPROLOL TAR 25 MG TAB PO SCH ×2 (05:50→16:24)
[2022-05-16 07:09] LABS: Hematocrit 43.1 % (39.6-49.0); Lymphocytes % 11.5 % (15.3-44.8); MPV 7.5 fL (7.6-11.3); RBC Red Blood Cell Count 4.95 M/uL (4.33-5.43)
[2022-05-16 08:09] LABS: Blood Morphology Comment NOT SEEN (NOT SEEN); Platelet Estimate INCR
[2022-05-16] MEDS ORDERED: TAMSULOSIN 0.4 MG SR CAP PO ONE (09:18)
[2022-05-16] MEDS: CEFTRIAXONE 1,000 MG in NA CHLORIDE 0.9% 50 ML IVPB SCH (09:40)
[2022-05-16] MEDS: FUROSEMIDE 20 MG TABLET PO SCH (09:45)
[2022-05-16] MEDS: FAMOTIDINE 20 MG TAB PO SCH ×2 (09:45→22:01)
[2022-05-16] MEDS: FINASTERIDE 5 MG TAB PO SCH (09:46)
[2022-05-16] MEDS: ASPIRIN EC 81 MG TAB PO SCH (09:46)
[2022-05-16] MEDS: AZITHROMYCIN IV 500 MG in NA CHLORIDE 0.9% 250 ML IVPB SCH (10:19)
[2022-05-16] MEDS: TICAGRELOR 90 MG TABLET PO SCH ×2 (10:39→22:01)
--- NOTE | 2022-05-16 18:56 | PN ---
Date of Progress Note: 05/16/2022 Subjective: Seen by bedside. Doing well. No complaints. Review of Systems: No chest pain, shortness of breath, orthopnea, cough, nausea, vomiting, diarrhea. No abdominal pain. No dysuria, polyuria, or urinary urgency. No skin rash, headache. All other systems reviewed and they were negative. Physical Examination: Vital Signs: Temperature is 97.7, pulse 81, breathing at 14, blood pressure is 138/76, saturating 95 % on room air. General: Pleasant elderly male, in no apparent distress. Head and Neck: Pupils are equal, reactive to light. Intact eye movements. No JVD. No cervical lym phadenopathy. Neck is supple. Thyroid is not enlarged. Lungs: Clear to auscultation bilaterally. No rhonchi, wheezing, or crackles. No accessory muscle u se. Heart: Regular rate and rhythm. No extra sounds. Abdomen: Soft, nontender. Bowel sounds positive. No organomegaly. No masses or hernia. No rigidi ty or rebound. Extremities: No edema, clubbing, or cyanosis. Intact pulses. Skin: No rash. Neurologic: Alert, awake, oriented x3. No acute focal deficits appreciated. Investigations: Labs were reviewed. Assessment And Recommendations: 1.Acute ST-elevation myocardial infarction, status post complete revascularization, doing well. Con tinue Brilinta and aspirin and high-dose statin. 2.Acute congestive heart failure due to acute myocardial infarction. He appears to be euvolemic. C ontinue Lasix 20 mg by mouth daily and try to increase the metoprolol to 25 mg twice a day and then increase the lisinopril gradually. 3.Urinary retention with hematuria. Await Urology evaluation. SR/MODL Voice ID: [id number] Report ID: [id number]
--- NOTE | 2022-05-16 20:39 | P.PN ---
Subjective Date of Service: 05/16/22 Chief Complaint: ST-elevation myocardial infarction No acute events overnight. He denies any chest pain or shortness of breath. He requests that we discontinue the Harris catheter and attempt another voiding trial. We have resumed his tamsulosin, but reduced his metoprolol dose due to soft blood pressures. Review of Systems 10-point ROS is otherwise unremarkable Genitourinary: Dysuria, Retention Physical Examination - Vital Signs Temperature: 97.2 F Blood Pressure: 110/68 Pulse: 64 Respirations: 16 Pulse Ox (%): 95 - Studies Medications List Reviewed: Yes Assessment And Plan - Plan - Physical Exam General: Alert, In no apparent distress, Oriented x3 HEENT: Atraumatic, PERRLA, Mucous membr. moist/pink, EOMI, Sclerae nonicteric Neck: Supple, JVD not distended Respiratory: Clear to auscultation bilaterally Cardiovascular: Regular rate/rhythm, No gallops, No rubs, No murmurs, Edema (trace bilateral) Capillary refill: <2 Seconds Gastrointestinal: Normal bowel sounds, Soft and benign, Non-distended, No tenderness, No rebound, No guarding Musculoskeletal: No clubbing Integumentary: No rashes Neurological: Normal speech, Cranial nerves 3-12 intact, Normal affect # Coronary Artery Disease with Acute ST-Segment Elevation Myocardial Infarction s/p PCI x 2 to LAD, RCA, and LCX - Evaluation thus far: - Original EKG: met STEMI criteria, trend - Serial troponin: 156.2 -> 3919.1 -> 51222.7 -> 76012.4 -> 8129.1 - Transthoracic echocardiogram = "low normal left ventricular ejection fraction 50-55%. Mild apical hypokinesis. Mild tricuspid regurgitation." - Chest x-ray = "mild improvement in lung aeration since yesterday's examination." - Management plan: - Consult Cardiology and spoke with Dr. Leary - recommendations appreciated - [facility] 05/10/2022: (1) s/p NAYAN to mid-LAD and (2) s/p NAYAN to proximal RCA - [facility] 05/13/2022: s/p NAYAN to LCX - Continue aspirin, atorvastatin, ticagrelor, metoprolol - Started lisinopril - but had to hold given soft BPs # Acute Decompensated Diastolic Congestive Heart Failure with Preserved Ejection Fraction - Consult Cardiology and spoke with Dr. Leary - recommendations appreciated - Recommended reducing furosemide to 20 mg PO daily - Transthoracic echocardiogram = "low normal left ventricular ejection fraction 50-55%. Mild apical hypokinesis. Mild tricuspid regurgitation." - Daily weights - Strict I/O - Cardiac diet, 1.5 L fluid restriction, 2 g Na restriction # Sepsis likely secondary to Bilateral Community-Acquired Pneumonia He meets sepsis criteria based on RR > 20 breaths/min and WBC > 12,000, and the suspected source is pneumonia. - Sepsis order set was initiated - Initial Lactate was 0.6 - Blood cultures drawn - Broad spectrum antibiotics started: Ceftriaxone + Azithromycin - In regards to fluids: - 30 mL/kg of IV fluids was not administered given SBP > 90, MAP > 65, lactic acid < 4 # Urinary Retention # Microscopic Hematuria - suspect traumatic from Harris placement - Will attempt voiding trial - Consulted Urology - recommendations appreciated - Resume tamsulosin and finasteride as tolerated - Urinalysis not convincing for UTI # Acute Asthma/COPD Exacerbation (resolved) Noted on prior notes, and seems to be improving. Does not appear to be in an acute exacerbation at this time. - Consulted Respiratory Therapy - Supplemental oxygen to maintain SpO2 > 92% - DuoNebs q4-6hr PRN Kerwin Stubbs M.D.
[2022-05-16] MEDS ORDERED: TAMSULOSIN 0.4 MG SR CAP PO SCH (21:00)
[2022-05-16] MEDS: ATORVASTATIN 40 MG TAB PO SCH (22:01)
[2022-05-16] MEDS: LIDOCAINE VISCOUS 2% SOLN 15 ML UDC MM ONE (23:38)
[2022-05-17] MEDS: LIDOCAINE VISCOUS 2% SOLN 15 ML UDC MM ONE (00:03)
[2022-05-17] MEDS ORDERED: LIDOCAINE JELLY 2% 5 ML SYRINGE TOP ONE ×2 (00:06→00:09)
[2022-05-17] MEDS: METOPROLOL TAR 25 MG TAB PO SCH ×2 (05:12→16:42)
[2022-05-17 06:37] VITALS: BMI 22.6
[2022-05-17 07:36] LABS: Absolute Lymphocytes (CBC) 1.9 K/uL (0.7-4.9); Hematocrit 42.4 % (39.6-49.0); Lymphocytes % 9.9 % (15.3-44.8); MCV 86.3 fL (80-100); MPV 7.1 fL (7.6-11.3); RBC Red Blood Cell Count 4.91 M/uL (4.33-5.43)
[2022-05-17] MEDS: TICAGRELOR 90 MG TABLET PO SCH ×2 (08:46→20:21)
[2022-05-17] MEDS: FUROSEMIDE 20 MG TABLET PO SCH (08:46)
[2022-05-17] MEDS: FINASTERIDE 5 MG TAB PO SCH (08:46)
[2022-05-17] MEDS: ASPIRIN EC 81 MG TAB PO SCH (08:46)
[2022-05-17] MEDS: FAMOTIDINE 20 MG TAB PO SCH ×2 (08:47→20:22)
[2022-05-17] MEDS: AZITHROMYCIN IV 500 MG in NA CHLORIDE 0.9% 250 ML IVPB SCH (08:47)
[2022-05-17] MEDS: CEFTRIAXONE 1,000 MG in NA CHLORIDE 0.9% 50 ML IVPB SCH (08:47)
[2022-05-17] MEDS ORDERED: NA CHLORIDE 0.9% 50 ML ONE (08:57)
[2022-05-17] MEDS ORDERED: AZITHROMYCIN 500 MG INJ IVPB ONE (08:57)
--- NOTE | 2022-05-17 17:34 | P.PN ---
Subjective Date of Service: 05/17/22 Chief Complaint: ST-elevation myocardial infarction Per overnight RN, his post-void residual was >300 mL, so a Harris catheter was re-inserted. I spoke with Dr. Sam, and Mr. Meneses is in agreement to leave with the Harris catheter with Urology follow-up. This morning, his WBC and david telet count continue to up-trend, but there is no clear etiology. Will continue to monitor given thrombocytosis and recent PCI. Review of Systems 10-point ROS is otherwise unremarkable General: Weakness Genitourinary: Dysuria, Retention Physical Examination - Vital Signs Temperature: 97.7 F Blood Pressure: 124/82 Pulse: 66 Respirations: 16 Pulse Ox (%): 97 - Studies Medications List Reviewed: Yes Assessment And Plan - Plan - Physical Exam General: Alert, In no apparent distress, Oriented x3 HEENT: Atraumatic, PERRLA, Mucous membr. moist/pink, EOMI, Sclerae nonicteric Neck: Supple, JVD not distended Respiratory: Clear to auscultation bilaterally Cardiovascular: Regular rate/rhythm, No gallops, No rubs, No murmurs, Edema (trace bilateral) Capillary refill: <2 Seconds Gastrointestinal: Normal bowel sounds, Soft and benign, Non-distended, No tenderness, No rebound, No guarding Genitourinary: Harris catheter in place Musculoskeletal: No clubbing Integumentary: No rashes Neurological: Normal speech, Cranial nerves 3-12 intact, Normal affect # Coronary Artery Disease with Acute ST-Segment Elevation Myocardial Infarction s/p PCI x 3 to LAD, RCA, and LCX # Thrombocytosis - acute phase reactant? - Evaluation thus far: - Original EKG: met STEMI criteria, trend - Serial troponin: 156.2 -> 3919.1 -> 63556.7 -> 16336.4 -> 8129.1 - Transthoracic echocardiogram = "low normal left ventricular ejection fraction 50-55%. Mild apical hypokinesis. Mild tricuspid regurgitation." - Chest x-ray = "mild improvement in lung aeration since yesterday's examination." - Management plan: - Consult Cardiology and spoke with Dr. Leary - recommendations appreciated - [facility] 05/10/2022: (1) s/p NAYAN to mid-LAD and (2) s/p NAYAN to proximal RCA - [facility] 05/13/2022: s/p NAYAN to LCX - Continue aspirin, atorvastatin, ticagrelor, metoprolol - Started lisinopril - but had to hold given soft BPs # Acute Decompensated Diastolic Congestive Heart Failure with Preserved Ejection Fraction - Consult Cardiology and spoke with Dr. Leary - recommendations appreciated - Recommended reducing furosemide to 20 mg PO daily - Transthoracic echocardiogram = "low normal left ventricular ejection fraction 50-55%. Mild apical hypokinesis. Mild tricuspid regurgitation." - Daily weights - Strict I/O - Cardiac diet, 1.5 L fluid restriction, 2 g Na restriction # Sepsis likely secondary to Bilateral Community-Acquired Pneumonia He meets sepsis criteria based on RR > 20 breaths/min and WBC > 12,000, and the suspected source is pneumonia. - Sepsis order set was initiated - Initial Lactate was 0.6 - Blood cultures drawn - Broad spectrum antibiotics started: Ceftriaxone + Azithromycin - In regards to fluids: - 30 mL/kg of IV fluids was not administered given SBP > 90, MAP > 65, lactic acid < 4 # Urinary Retention # Microscopic Hematuria - suspect traumatic from Harris placement - Consulted Urology and spoke with Dr. Sam - recommendations appreciated - He agrees to follow-up with him in clinic for re-evaluation - Resume tamsulosin and finasteride as tolerated - Urinalysis not convincing for UTI # Acute Asthma/COPD Exacerbation (resolved) Noted on prior notes, and seems to be improving. Does not appear to be in an acute exacerbation at this time. - Consulted Respiratory Therapy - Supplemental oxygen to maintain SpO2 > 92% - DuoNebs q4-6hr PRN Kerwin Stubbs M.D.
[2022-05-17] MEDS: ATORVASTATIN 40 MG TAB PO SCH (20:22)
[2022-05-17] MEDS: TAMSULOSIN 0.4 MG SR CAP PO SCH (20:22)
[2022-05-17] MEDS: ENSURE ENLIVE 237 ML CAN PO SCH (20:23)
[2022-05-17] MEDS: GABAPENTIN 300 MG CAP PO SCH (21:00)
[2022-05-17] MEDS: TRAZODONE 50 MG TABLET PO SCH (21:00)
[2022-05-17] MEDS: CYCLOBENZAPRINE 10 MG TAB PO PRN (21:46)
--- NOTE | 2022-05-18 03:38 | PN ---
Date of Progress Note: 05/17/2022 Subjective: Seen by bedside. No chest pain. Review of Systems: No chest pain, shortness of breath, orthopnea, or cough. No nausea, vomiting, or diarrhea. All syst ems were reviewed and they were negative. Physical Examination: Vital Signs: Temperature is 97.7, pulse 66, breathing at 16, blood pressure 124/82, saturating 97% o n room air. General: A pleasant elderly male, in no apparent distress. Head And Neck: Pupils are equal and reactive to light. Intact eye movements. No JVD. No cervical lymphadenopathy. Neck is supple. Thyroid is not enlarged. Lungs: Clear to auscultation bilaterally. No rhonchi, wheezing, or crackles. No accessory muscle u se. Heart: Regular rate and rhythm. No extra sounds. Abdomen: Soft, nontender. Bowel sounds positive. No organomegaly. No masses or hernia. No rigidi ty or rebound. Extremities: No edema, clubbing, or cyanosis. Intact pulses. Skin: No rash. Neuro: Alert, awake, and oriented x3. No acute focal deficits appreciated. Investigations: Labs were reviewed. Assessment And Recommendation: 1.Acute myocardial infarction. Culprits were left anterior descending and right coronary artery tog ether, status post successful percutaneous coronary intervention and then percutaneous coronary inter vention of left circumflex was performed due to severe disease, doing well. No chest pain. Continue dual-antiplatelet therapy with aspirin and Brilinta and continue statin. 2.Acute congestive heart failure due to acute myocardial infarction, doing well. Continue Lasix 20 mg daily and continue metoprolol. His heart rate is controlled and attempt to increase the lisinopri l to 5 mg daily. 3.Urinary retention. He had a Harris catheter. Flomax was introduced. Plan to remove the catheter and see if the patient can void before discharge and to follow up with Urology. SR/MODL Voice ID: [id number] Report ID: [id number]
[2022-05-18 06:07] LABS: Absolute Lymphocytes (CBC) 2.2 K/uL (0.7-4.9); Hematocrit 41.4 % (39.6-49.0); MCV 86.5 fL (80-100); RBC Red Blood Cell Count 4.78 M/uL (4.33-5.43)
[2022-05-18 06:21] LABS: Potassium 4.7 mmol/L (3.5-5.1)
--- NOTE | 2022-05-18 07:27 | RAD REPORT ---
EXAM DESCRIPTION: RAD - Chest Single View - 05/18/2022 7:05 am CLINICAL HISTORY: follow-up pulmonary opacities, dyspnea COMPARISON: Portable May 13, May 12 and May 11 TECHNIQUE: AP portable chest image was obtained 05/18/2022 7:05 am . FINDINGS: No new mass or consolidation. Interstitial markings are prominent, probably baseline, with the patchy airspace opacities seen May 12 no longer present. No hilar mass or lymphadenopathy. H eart and vasculature are normal. No measurable pleural effusion and no pneumothorax. No acute bony ab normality seen. No acute aortic findings suspected. IMPRESSION: No new or progressive cardiopulmonary finding. Interstitial markings are prominent, probably baseline, with the patchy airspace opacities seen Octob no longer present.
[2022-05-18 08:03] LABS: Potassium 4.4 mmol/L (3.5-5.1)
[2022-05-18 09:01] LABS: Platelet Estimate INCR; Platelets, Giant 1+
[2022-05-18 09:02] LABS: Blood Morphology Comment NOTED (NOT SEEN); Hypochromasia 1+; Ovalocytes 1+; Poikilocytosis 1+
--- NOTE | 2022-05-18 09:13 | RAD REPORT ---
EXAM DESCRIPTION: CT - Thorax W/ Con - 05/18/2022 8:48 am CLINICAL HISTORY: PNA COMPARISON: Chest Single View dated 05/18/2022hest Single View dated 05/18/2022; Chest Single View dated 05/13/2022 TECHNIQUE: Dynamically enhanced 5 mm thick images of the chest were obtained during administration o f 100 mL non-ionic IV contrast. All CT scans are performed using dose optimization technique as appropriate and may include automated exposure control or mA/KV adjustment according to patient size. FINDINGS: No focal pneumonia identified. No air space infiltrate or opacification. No interstitial e ivania or thickening seen. No pleural thickening or pleural effusion. No pneumothorax. No chest wall ma ss or abnormal axillary lymphadenopathy. No abnormal mediastinal or hilar mass or lymphadenopathy seen. No cardiomegaly or pericardial effusion. Dense coronary artery calcifications are present. Aortic ath erosclerotic calcifications are present with mild slightly irregular mural thrombus in the mid and di stal descending thoracic aorta. IMPRESSION: No pneumonia or acute lung parenchymal process identified.
--- NOTE | 2022-05-18 09:45 | P.PN ---
Subjective Date of Service: 05/18/22 Chief Complaint: ST-elevation myocardial infarction No acute events overnight. He reports that he feels well; however, his platelet count continues to up-trend. He denies any chest pain or palpitations. He denies any other particular concerns this morning. Review of Systems 10-point ROS is otherwise unremarkable Genitourinary: Retention Physical Examination - Vital Signs Temperature: 97.4 F Blood Pressure: 102/65 Pulse: 70 Respirations: 18 Pulse Ox (%): 97 - Studies Medications List Reviewed: Yes Assessment And Plan - Plan - Physical Exam General: Alert, In no apparent distress, Oriented x3 HEENT: Atraumatic, PERRLA, Mucous membr. moist/pink, EOMI, Sclerae nonicteric Neck: Supple, JVD not distended Respiratory: Clear to auscultation bilaterally Cardiovascular: Regular rate/rhythm, No gallops, No rubs, No murmurs, Edema (trace bilateral) Capillary refill: <2 Seconds Gastrointestinal: Normal bowel sounds, Soft and benign, Non-distended, No tenderness, No rebound, No guarding Genitourinary: Harris catheter in place Musculoskeletal: No clubbing Integumentary: No rashes Neurological: Normal speech, Cranial nerves 3-12 intact, Normal affect # Coronary Artery Disease with Acute ST-Segment Elevation Myocardial Infarction s/p PCI x 3 to LAD, RCA, and LCX - Evaluation thus far: - Original EKG: met STEMI criteria, trend - Serial troponin: 156.2 -> 3919.1 -> 87727.7 -> 41212.4 -> 8129.1 - Transthoracic echocardiogram = "low normal left ventricular ejection fraction 50-55%. Mild apical hypokinesis. Mild tricuspid regurgitation." - Chest x-ray = "mild improvement in lung aeration since yesterday's examination." - Management plan: - Consult Cardiology and spoke with Dr. Leary - recommendations appreciated - [facility] 05/10/2022: (1) s/p NAYAN to mid-LAD and (2) s/p NAYAN to proximal RCA - [facility] 05/13/2022: s/p NAYAN to LCX - Continue aspirin, atorvastatin, ticagrelor, metoprolol - Started lisinopril - but had to hold given soft BPs # Acute Decompensated Diastolic Congestive Heart Failure with Preserved Ejection Fraction - Consult Cardiology and spoke with Dr. Leary - recommendations appreciated - Transthoracic echocardiogram = "low normal left ventricular ejection fraction 50-55%. Mild apical hypokinesis. Mild tricuspid regurgitation." - Continue PO furosemide - Daily weights - Strict I/O - Cardiac diet, 1.5 L fluid restriction, 2 g Na restriction # Sepsis likely secondary to Bilateral Community-Acquired Pneumonia He met sepsis criteria based on RR > 20 breaths/min and WBC > 12,000, and the suspected source was pneumonia. - Sepsis order set was initiated - Initial Lactate was 0.6 - Blood cultures drawn - Broad spectrum antibiotics started: Ceftriaxone + Azithromycin - In regards to fluids: - 30 mL/kg of IV fluids was not administered given SBP > 90, MAP > 65, lactic acid < 4 - CT scan ordered to follow-up # Thrombocytosis Discussed his case with Hematology (Dr. Joyce), she feels that the two most likely explanations are reactive thrombocytosis vs an underlying myeloproliferative disease. - She recommended ordering iron studies, ferritin, CRP, ESR, MARCK-2, flow cytometry, and peripheral smear - She states that she will follow up with Mr. Meneses in clinic. His face sheet has been faxed to her office. # Urinary Retention # Microscopic Hematuria - suspect traumatic from Harris placement - Consulted Urology and spoke with Dr. Sam - recommendations appreciated - He agrees to follow-up with him in clinic for re-evaluation - Resume tamsulosin and finasteride as tolerated - Urinalysis not convincing for UTI # Acute Asthma/COPD Exacerbation (resolved) Noted on prior notes, and seems to be improving. Does not appear to be in an acute exacerbation at this time. - Consulted Respiratory Therapy - Supplemental oxygen to maintain SpO2 > 92% - Sera q4-6hr PRN Kerwin Stubbs M.D.
[2022-05-18] MEDS: CEFTRIAXONE 1,000 MG in NA CHLORIDE 0.9% 50 ML IVPB SCH (10:04)
[2022-05-18] MEDS: FAMOTIDINE 20 MG TAB PO SCH ×2 (10:05→20:16)
[2022-05-18] MEDS: ASPIRIN EC 81 MG TAB PO SCH (10:05)
[2022-05-18] MEDS: METOPROLOL TAR 25 MG TAB PO SCH ×2 (10:05→16:51)
[2022-05-18] MEDS: FINASTERIDE 5 MG TAB PO SCH (10:05)
[2022-05-18] MEDS: GABAPENTIN 300 MG CAP PO SCH ×3 (10:05→20:16)
[2022-05-18] MEDS: ENSURE ENLIVE 237 ML CAN PO SCH ×2 (10:06→21:00)
[2022-05-18] MEDS: FUROSEMIDE 20 MG TABLET PO SCH (10:06)
[2022-05-18] MEDS: TICAGRELOR 90 MG TABLET PO SCH ×2 (10:08→20:15)
[2022-05-18 11:20] LABS: C-Reactive Protein 6.6 mg/L (<3.00)
[2022-05-18 15:05] LABS: Hematocrit 42.2 % (39.6-49.0)
--- NOTE | 2022-05-18 16:22 | PN ---
Date of Progress Note: 05/18/2022 Subjective: Seen by bedside, doing well. No chest pain. Review of Systems: No chest pain, shortness of breath, orthopnea, or cough. No nausea, vomiting, or diarrhea. No dysur ia, polyuria, or urinary urgency. No skin rash or headache. All other systems were reviewed and the y were negative. Physical Examination: Vital Signs: Reviewed. Head And Neck: Pupils are equal and reactive to light. Intact eye movements. No JVD. No cervical lymphadenopathy. Neck is supple. Thyroid is not enlarged. Lungs: Clear to auscultation bilaterally. No rhonchi, wheezing, or crackles. No accessory muscle u se. Heart: Regular rate and rhythm. No extra sounds. Abdomen: Soft, nontender. Bowel sounds positive. No organomegaly. No masses or hernia. No rigidi ty or rebound. Extremities: No edema, clubbing, or cyanosis. Intact pulses. Skin: No rash. Neurologic: Alert, awake, and oriented x3. No acute focal deficits appreciated. Investigations: BUN is 19, creatinine 0.88, hemoglobin is 14.2. Assessment And Recommendation: 1.Acute myocardial infarction, status post for revascularization and we will continue Brilinta and a spirin. 2.Dyslipidemia. Continue statin. 3.Severe peripheral vascular disease. We will plan for intervention on an outpatient basis. /MEHUL Voice ID: [id number] Report ID: [id number]
[2022-05-18] MEDS: ONDANSETRON 4 MG/2 ML VIAL IV PRN (19:39)
[2022-05-18] MEDS: TRAZODONE 50 MG TABLET PO SCH (20:15)
[2022-05-18] MEDS: ATORVASTATIN 40 MG TAB PO SCH (20:15)
[2022-05-18] MEDS: TAMSULOSIN 0.4 MG SR CAP PO SCH (20:15)
[2022-05-18] MEDS: CYCLOBENZAPRINE 10 MG TAB PO PRN (20:16)
[2022-05-19 05:47] LABS: Potassium 4.6 mmol/L (3.5-5.1)
[2022-05-19 05:49] LABS: Absolute Lymphocytes (CBC) 1.1 K/uL (0.7-4.9); Hematocrit 38.7 % (39.6-49.0); MCV 86.4 fL (80-100); MPV 6.8 fL (7.6-11.3); RBC Red Blood Cell Count 4.48 M/uL (4.33-5.43)
[2022-05-19] MEDS: METOPROLOL TAR 25 MG TAB PO SCH ×3 (06:17→17:48)
[2022-05-19] MEDS: GABAPENTIN 300 MG CAP PO SCH ×3 (08:40→21:57)
[2022-05-19] MEDS: TICAGRELOR 90 MG TABLET PO SCH ×2 (08:40→21:58)
[2022-05-19] MEDS: CEFTRIAXONE 1,000 MG in NA CHLORIDE 0.9% 50 ML IVPB SCH (08:40)
[2022-05-19] MEDS: ASPIRIN EC 81 MG TAB PO SCH (08:40)
[2022-05-19] MEDS: FINASTERIDE 5 MG TAB PO SCH (08:40)
[2022-05-19] MEDS: FAMOTIDINE 20 MG TAB PO SCH ×2 (08:41→22:00)
[2022-05-19] MEDS: FUROSEMIDE 40 MG TABLET PO SCH (08:41)
[2022-05-19] MEDS: ENSURE ENLIVE 237 ML CAN PO SCH ×2 (08:41→21:58)
--- NOTE | 2022-05-19 18:30 | P.PN ---
Subjective Date of Service: 05/19/22 Chief Complaint: ST-elevation myocardial infarction No acute events overnight. He reports that some mild shortness of breath with exertion. He denies any chest pain, palpitations, or shortness of breath at rest. Review of Systems 10-point ROS is otherwise unremarkable Respiratory: SOB with Excertion Physical Examination - Vital Signs Temperature: 98.5 F Blood Pressure: 130/69 Pulse: 57 Respirations: 14 Pulse Ox (%): 94 - Studies Medications List Reviewed: Yes Assessment And Plan - Plan - Physical Exam General: Alert, In no apparent distress, Oriented x3 HEENT: Atraumatic, PERRLA, Mucous membr. moist/pink, EOMI, Sclerae nonicteric Neck: Supple, JVD minimally distended Respiratory: Clear to auscultation bilaterally Cardiovascular: Regular rate/rhythm, No gallops, No rubs, No murmurs, Edema (trace bilateral) Capillary refill: <2 Seconds Gastrointestinal: Normal bowel sounds, Soft and benign, Non-distended, No tenderness, No rebound, No guarding Genitourinary: Harris catheter in place Musculoskeletal: No clubbing Integumentary: No rashes Neurological: Normal speech, Cranial nerves 3-12 intact, Normal affect # Coronary Artery Disease with Acute ST-Segment Elevation Myocardial Infarction s/p PCI x 3 to LAD, RCA, and LCX - Evaluation thus far: - Original EKG: met STEMI criteria, trend - Serial troponin: 156.2 -> 3919.1 -> 40174.7 -> 37654.4 -> 8129.1 - Transthoracic echocardiogram = "low normal left ventricular ejection fraction 50-55%. Mild apical hypokinesis. Mild tricuspid regurgitation." - Chest x-ray = "mild improvement in lung aeration since yesterday's examination." - Management plan: - Consult Cardiology and spoke with Dr. Leary - recommendations appreciated - [facility] 05/10/2022: (1) s/p NAYAN to mid-LAD and (2) s/p NAYAN to proximal RCA - [facility] 05/13/2022: s/p NAYAN to LCX - Continue aspirin, atorvastatin, ticagrelor, metoprolol - Started lisinopril - but had to hold given soft BPs # Acute Decompensated Diastolic Congestive Heart Failure with Preserved Ejection Fraction - Consult Cardiology and spoke with Dr. Leary - recommendations appreciated - Transthoracic echocardiogram = "low normal left ventricular ejection fraction 50-55%. Mild apical hypokinesis. Mild tricuspid regurgitation." - Continue PO furosemide (switched from 20 mg to 40 mg per Cardiology) - Daily weights - Strict I/O - Cardiac diet, 1.5 L fluid restriction, 2 g Na restriction # Sepsis likely secondary to Bilateral Community-Acquired Pneumonia He met sepsis criteria based on RR > 20 breaths/min and WBC > 12,000, and the suspected source was pneumonia. - Sepsis order set was initiated - Initial Lactate was 0.6 - Blood cultures drawn - Broad spectrum antibiotics started: Ceftriaxone + Azithromycin - In regards to fluids: - 30 mL/kg of IV fluids was not administered given SBP > 90, MAP > 65, lactic acid < 4 - CT chest scan = "no pneumonia or acute lung parenchymal process identified." # Thrombocytosis Discussed his case with Hematology (Dr. Joyce), she feels that the two most likely explanations are reactive thrombocytosis vs an underlying myeloproliferative disease. - She recommended ordering iron studies, ferritin, CRP, ESR, MARCK-2, flow cytometry, and peripheral smear - She states that she will follow up with Mr. Meneses in clinic. His face sheet has been faxed to her office. # Urinary Retention # Microscopic Hematuria - suspect traumatic from Harris placement - Consulted Urology and spoke with Dr. Sam - recommendations appreciated - He agrees to follow-up with him in clinic for re-evaluation - Resume tamsulosin and finasteride as tolerated - Urinalysis not convincing for UTI # Acute Asthma/COPD Exacerbation (resolved) Noted on prior notes, and seems to be improving. Does not appear to be in an acute exacerbation at this time. - Consulted Respiratory Therapy - Supplemental oxygen to maintain SpO2 > 92% - Sera q4-6hr PRN Kerwin Stubbs M.D.
[2022-05-19] MEDS: TAMSULOSIN 0.4 MG SR CAP PO SCH (21:57)
[2022-05-19] MEDS: ATORVASTATIN 40 MG TAB PO SCH (21:57)
[2022-05-19] MEDS: TRAZODONE 50 MG TABLET PO SCH (21:58)
[2022-05-20 03:52] LABS: Absolute Lymphocytes (CBC) 2.2 K/uL (0.7-4.9); Hematocrit 37.8 % (39.6-49.0); Lymphocytes % 15.5 % (15.3-44.8); MCV 86.4 fL (80-100); MPV 6.9 fL (7.6-11.3); RBC Red Blood Cell Count 4.38 M/uL (4.33-5.43)
[2022-05-20] MEDS: METOPROLOL TAR 25 MG TAB PO SCH ×2 (05:15→17:56)
[2022-05-20] MEDS: FUROSEMIDE 40 MG TABLET PO SCH (08:39)
[2022-05-20] MEDS: ASPIRIN EC 81 MG TAB PO SCH (08:39)
[2022-05-20] MEDS: TICAGRELOR 90 MG TABLET PO SCH (08:39)
[2022-05-20] MEDS: FAMOTIDINE 20 MG TAB PO SCH (08:39)
[2022-05-20] MEDS: GABAPENTIN 300 MG CAP PO SCH ×2 (08:39→14:30)
[2022-05-20] MEDS: CEFTRIAXONE 1,000 MG in NA CHLORIDE 0.9% 50 ML IVPB SCH (08:40)
[2022-05-20] MEDS: FINASTERIDE 5 MG TAB PO SCH (08:40)
[2022-05-20] MEDS: ENSURE ENLIVE 237 ML CAN PO SCH (08:40)
[2022-05-20 09:41] VITALS: O2SAT 94
[2022-05-20 12:26] VITALS: TEMP 98.4
[2022-05-20 16:43] VITALS: BP 124/72
--- NOTE | 2022-05-20 21:02 | PN ---
Date of Progress Note: 05/20/2022 Subjective: Seen at bedside, doing clinically well. No chest pain, but still not able to void on hi s own. Review of Systems: No chest pain, shortness of breath, orthopnea, or cough. No nausea, vomiting, or diarrhea. No abdom inal pain. No dysuria, polyuria, or urinary urgency. No skin rash. All other systems reviewed and are negative. Physical Examination: Vital Signs: Reviewed. Head And Neck: Pupils are equal and reactive to light. Intact eye movements. No JVD. No cervical lymphadenopathy. Neck is supple. Thyroid is not enlarged. Lungs: Clear to auscultation bilaterally. No rhonchi, wheezing, or crackles. No accessory muscle u se. Heart: Regular rate and rhythm. No extra sounds. Abdomen: Soft, nontender. Bowel sounds positive. No organomegaly. No masses or hernia. No rigidi ty or rebound. Extremities: No edema, clubbing, or cyanosis. Intact pulses. Skin: No rash. Neurologic: Alert, awake, and oriented x3. No acute focal deficits appreciated. Investigations: BUN 19, creatinine 0.92. Hemoglobin is 12.9. Assessment And Recommendation: 1.Acute myocardial infarction status post for revascularization, doing well. Continue Brilinta and aspirin. 2.Dyslipidemia. Continue statin, high-dose Lipitor 40 mg at bedtime. 3.Urinary retention and awaiting Urology evaluation. From Cardiology standpoint, patient can be released to start on cardiac rehab as an outpatient and follow up with me in the office in 2 weeks post discharge. SR/MODL Voice ID: [id number] Report ID: [id number]
== END 2022-05-20 18:24 | disposition home or self-care (01) | DRG 246 ==
LOC: ER 14:29 → ERHOLD 14:58 → 3RD-ICU 17:08 → 4TH 05-15 17:40
PROVIDERS: ADMIT Hospitalist; ATTEND Hospitalist
PROC: 027135Z Dilation of Coronary Artery, Two Arteries with Two Drug-eluting Intraluminal Devices, Percutaneous Approach (ICD-10-PCS; principal; 2022-05-10)
PROC: 4A023N7 Measurement of Cardiac Sampling and Pressure, Left Heart, Percutaneous Approach (ICD-10-PCS; 2022-05-10)
PROC: B2111ZZ Fluoroscopy of Multiple Coronary Arteries using Low Osmolar Contrast (ICD-10-PCS; 2022-05-10)
PROC: 027034Z Dilation of Coronary Artery, One Artery with Drug-eluting Intraluminal Device, Percutaneous Approach (ICD-10-PCS; 2022-05-13)
PROC: 4A023N7 Measurement of Cardiac Sampling and Pressure, Left Heart, Percutaneous Approach (ICD-10-PCS; 2022-05-13)
PROC: B2111ZZ Fluoroscopy of Multiple Coronary Arteries using Low Osmolar Contrast (ICD-10-PCS; 2022-05-13)
DX: I21.4 Non-ST elevation (NSTEMI) myocardial infarction (principal); A41.9 Sepsis, unspecified organism; J18.9 Pneumonia, unspecified organism; I50.33 Acute on chronic diastolic (congestive) heart failure; I11.0 Hypertensive heart disease with heart failure; I07.1 Rheumatic tricuspid insufficiency; E78.5 Hyperlipidemia, unspecified; I25.10 Atherosclerotic heart disease of native coronary artery without angina pectoris; E11.51 Type 2 diabetes mellitus with diabetic peripheral angiopathy without gangrene; J43.2 Centrilobular emphysema; D75.839 Thrombocytosis, unspecified; F17.210 Nicotine dependence, cigarettes, uncomplicated; R33.9 Retention of urine, unspecified; R31.9 Hematuria, unspecified; Z88.0 Allergy status to penicillin; Z88.1 Allergy status to other antibiotic agents; Z95.5 Presence of coronary angioplasty implant and graft; Z20.822 Contact with and (suspected) exposure to COVID-19
CPT/HCPCS: 36415; 71045; 71260; 76857; 76937; 80048; 80053; 80061; 80076; 81001; 82728; 82947; 83540; 83605; 83690; 83735; 83880; 84145; 84466; 84484; 85014; 85018; 85025; 85347; 85610; 85652; 85730; 86140; 86850; 86900; 86901; 87040; 87811; 93005; 93306; 93454; 93458; 96374; 96375; 97116; 97161; 99285; C1725; C1893; C9600; C9601; J0456; J1170; J1644; J1940; J2250; J2270; J2370; J2405; J3010; J7030; J7040; J7050; J7060; Q9967

== ENCOUNTER 2022-05-29 03:33 | Emergency (ER) | payer OTHER ==
[2022-05-29] MEDS ORDERED: ASPIRIN 81 MG CHEWABLE TABLET ONE (03:45)
[2022-05-29] MEDS ORDERED: NITROGLYCERIN 0.4 MG/TAB SL ONE (03:45)
[2022-05-29] MEDS ORDERED: HEPARIN 5000 UNIT/ML 1 ML VIAL ONE (04:03)
[2022-05-29] MEDS ORDERED: HEPARIN/D5W 25,000 UNIT/500 ML BAG IV ONE (04:03)
[2022-05-29] MEDS ORDERED: NITROGLYCERIN/D5W 50 MG/250 ML BTL IV ONE (04:08)
[2022-05-29 06:42] LABS: Albumin 2.8 g/dL (3.4-5.0); Bilirubin Direct 0.2 mg/dL (0-0.2); Bilirubin Total 0.4 mg/dL (0.2-1.0); Protein, Total 7.2 g/dL (6.4-8.2)
--- NOTE | 2022-05-29 06:42 | EDPHYS ---
Physician Documentation [facility] Name: Navjot Meneses Age: 72 yrs Sex: Male : 1950 Arrival Date: 05/29/2022 Time: 03:35 Bed 19 Private MD: ED Physician Santa Martinez HPI: 05/29 04:10 This 72 yrs old Male presents to ER via EMS with complaints of chest pain. sp3 04:10 72-year-old male with a history of recent ST elevation ID approximately 18 days ago who sp3 received 3 stents in the inferior region and now presents again via EMS for recurrent chest pain and dyspnea. Per EMS patient is also been diaphoretic she complains of substernal chest pain radiating into the left arm. He states he is compliant with his medications which include antiplatelet agents aspirin and Plavix. It started approximately 2 hours prior to arrival and awoke him from sleep. No exertional activity reported. He denies any other symptoms including headache, fever, URI symptoms, abdominal pain, back pain, nausea, vomiting, diarrhea, rash, bleeding, any other symptoms.. Historical: - Allergies: 03:50 PENICILLINS; as6 03:50 Sulfa (Sulfonamide Antibiotics); as6 - Home Meds: 04:54 Lasix 40 mg Oral tab 1 tab once daily [Active]; Metoprolol Tartrate 12.5mg Oral 2 times jb4 per day [Active]; tamsulosin 0.4 mg oral cap 2 caps once daily [Active]; Brilinta 90 mg oral tab 1 tab 2 times per day [Active]; lisinopril 2.5 mg Oral tab 1 tab once daily [Active]; atorvastatin 40 mg oral tab 1 tab once daily [Active]; cholecalciferol (vitamin D3) 1000 units oral cap daily [Active]; cyanocobalamin (vitamin B-12) 1,000 mcg oral tab daily [Active]; cyclobenzaprine 5 mg Oral tab 0.5 tab 3 times per day [Active]; cyproheptadine 4 mg Oral tab 1 tab nightly [Active]; diclofenac sodium 75 mg twice a day [Active]; duloxetine 20 mg oral CDRS daily [Active]; finasteride 5 mg oral tab 1 tab once daily [Active]; gabapentin 600 mg oral tab 2 cap 3 times per day [Active]; omeprazole 20 mg Oral cpDR 1 cap 2 times per day [Active]; trazodone 25 mg Oral tab 0.5 tab nightly [Active]; bupropion HCl 150 mg Oral Tb24 three times a day [Active]; - PMHx: 03:50 neuropathy; Myocardial infarction; as6 - PSHx: 03:50 Appendectomy; Tonsillectomy; Stented artery; as6 - Immunization history:: Client reports receiving the 2nd dose of the Covid vaccine, moderna. - Social history:: Smoking status: Patient reports the use of cigarette tobacco products, smokes one pack cigarettes per day. ROS: 04:11 Constitutional: Negative for fever, chills, and weight loss, Eyes: Negative for injury, sp3 pain, redness, and discharge, Neck: Negative for injury, pain, and swelling, Abdomen/GI: Negative for abdominal pain, nausea, vomiting, diarrhea, and constipation, Back: Negative for injury and pain, MS/Extremity: Negative for injury and deformity, Skin: Negative for injury, rash, and discoloration, Neuro: Negative for headache, weakness, numbness, tingling, and seizure, Psych: Negative for depression, anxiety, suicide ideation, homicidal ideation, and hallucinations, Allergy/Immunology: Negative for hives, rash, and allergies, Endocrine: Negative for neck swelling, polydipsia, polyuria, polyphagia, and marked weight changes. 04:11 All other systems are negative. Exam: 04:11 Constitutional: This is a well developed, well nourished patient who is awake, alert, sp3 and in no acute distress. Head/Face: Normocephalic, atraumatic. Eyes: Pupils equal round and reactive to light, extra-ocular motions intact. Lids and lashes normal. Conjunctiva and sclera are non-icteric and not injected. Cornea within normal limits. Periorbital areas with no swelling, redness, or edema. ENT: Nares patent. No nasal discharge, no septal abnormalities noted. External auditory canals are clear. Oropharynx with no redness, swelling, or masses, exudates, or evidence of obstruction, uvula midline. Mucous membranes moist. Neck: Trachea midline, no thyromegaly or masses palpated, and no cervical lymphadenopathy. Supple, full range of motion without nuchal rigidity, or vertebral point tenderness. No Meningismus. Chest/axilla: Normal chest wall appearance and motion. Nontender with no deformity. No lesions are appreciated. Cardiovascular: Regular rate and rhythm with a normal S1 and S2. No gallops, murmurs, or rubs. Normal PMI, no JVD. No pulse deficits. Respiratory: Lungs have equal breath sounds bilaterally, clear to auscultation and percussion. No rales, rhonchi or wheezes noted. No increased work of breathing, no retractions or nasal flaring. Abdomen/GI: Soft, non-tender, with normal bowel sounds. No distension or tympany. No guarding or rebound. No evidence of tenderness throughout. Back: No spinal tenderness. No costovertebral tenderness. Full range of motion. Skin: Warm, dry with normal turgor. Normal color with no rashes, no lesions, and no evidence of cellulitis. MS/ Extremity: Pulses equal, no cyanosis. Neurovascular intact. Full, normal range of motion. Neuro: Awake and alert, GCS 15, oriented to person, place, time, and situation. Cranial nerves II-XII grossly intact. Motor strength 5/5 in all extremities. Sensory grossly intact. Cerebellar exam normal. Normal gait. 04:11 ECG was reviewed by the Attending Physician. EKG demonstrates normal sinus rhythm at 70 bpm with first-degree AV block 216 ms, normal QRS, leftward axis, Wellens criteria with biphasic T waves leads V3 through V6 with nonspecific diffuse ST/T changes. Only old EKG available was his prior ST elevation ID with no other EKGs available given that hospital computer systems are down. Vital Signs: 03:48 BP 141 / 81; Pulse 68; Resp 19 S; Temp 98.2(O); Pulse Ox 98% on R/A; Weight 72.12 kg as6 (R); Height 5 ft. 7 in. (170.18 cm) (R); Pain 9/10; 04:04 Weight 76.2 kg (M); as6 04:12 BP 131 / 76; Pulse 73; Resp 20 S; Pulse Ox 98% on 3 lpm NC; as6 04:15 BP 137 / 76; Pulse 68; as6 04:20 BP 121 / 81; Pulse 77; as6 04:25 BP 133 / 71; Pulse 78; as6 04:35 BP 120 / 79; Pulse 73; as6 04:40 BP 120 / 70; Pulse 76; as6 04:45 BP 112 / 72; Pulse 75; as6 04:48 BP 112 / 72; Pulse 75; Resp 17 S; Pulse Ox 96% on 3 lpm NC; Pain 8/10; as6 04:50 BP 118 / 74; Pulse 78; as6 04:55 BP 106 / 75; Pulse 72; as6 05:00 BP 121 / 71; Pulse 71; Pain 8/10; as6 05:01 BP 121 / 71; Pulse 71; Resp 12 S; Pulse Ox 97% on 3 lpm NC; Pain 8/10; as6 05:04 Temp 97.8(O); kl 05:05 BP 112 / 67; Pulse 72; as6 05:10 BP 108 / 73; Pulse 77; as6 05:15 BP 104 / 62; Pulse 73; as6 05:20 BP 105 / 63; Pulse 72; as6 05:25 BP 108 / 64; Pulse 70; as6 05:29 BP 108 / 64; Pulse 68; Resp 17 S; Pulse Ox 95% on 3 lpm NC; as6 05:35 BP 100 / 64; Pulse 76; Resp 15 S; Pulse Ox 96% on 3 lpm NC; as6 05:42 BP 100 / 66; Pulse 71; as6 05:59 BP 106 / 68; Pulse 72; as6 06:07 BP 102 / 65; Pulse 68; Resp 18 S; Pulse Ox 96% on 3 lpm NC; as6 04:04 Body Mass Index 26.31 (76.20 kg, 170.18 cm) as6 MDM: 03:51 Patient medically screened. sp3 04:13 Data reviewed: vital signs, nurses notes, old medical records, EKG. ED course: sp3 72-year-old male with recent myocardial infarction requiring 3 stents now comes in with recurrent substernal chest pain. Given his EKG changes, we will classify him as unstable angina, start heparin drip, nitroglycerin sublingual plus drip as needed. I have urgently spoken with his land resource specialist Dr. Urbina who will be in to see him later this morning with probable director of cardiac cath lab activation. Pain is better with first two nitro tabs. She is reocclusion risk is quite high and these concerns have been communicated to the entire team she will be placed in the intensive care unit until urgent catheterization can be achieved.. 05:36 ED course: Patient symptoms continue to get worse with increasing pain. Patient is now sp3 on nitro drip and heparin drip. Our cardiology service was not able to get to the hospital until tomorrow morning given [facility] unavailability. Decision was made to transfer patient to [facility] for unstable angina/likely stent reocclusion. Transfer center was notified and I was able to speak to the ER physician who graciously activated code STEMI protocol for this unique situation of probable stent reocclusion.. 05/29 03:52 Order name: Cardiac monitoring; Complete Time: 03:53 sp3 05/29 03:52 Order name: EKG - Nurse/Tech; Complete Time: 03:53 sp3 05/29 03:52 Order name: IV Saline Lock; Complete Time: 03:53 sp3 05/29 03:52 Order name: Labs collected and sent; Complete Time: 03:59 sp3 05/29 03:52 Order name: O2 Per Protocol; Complete Time: 03:53 sp3 05/29 03:52 Order name: O2 Sat Monitoring; Complete Time: 03:53 sp3 Administered Medications: 03:45 Drug: Aspirin Chewable Tablet 324 mg Route: PO; as6 06:20 Follow up: Response: No adverse reaction as6 03:47 Drug: Nitroglycerin 0.4 mg Route: Sublingual; as6 04:05 Drug: Nitroglycerin 0.4 mg Route: Sublingual; as6 06:20 Follow up: Response: No adverse reaction as6 04:10 Drug: Heparin (ID Drip) 12 units/kg/hr - (HEParin 96713 units, D5W 500 ml) as6 {Co-Signature: jb4 (Ronak Mckeon RN).} Route: IV; Rate: calculated rate; Site: right forearm; 06:20 Follow up: Response: No adverse reaction; IV Status: Infusion continued upon transfer as6 04:11 Drug: Heparin (ID-Bolus No thrombolytic) - HEParin 60 units/kg {Co-Signature: jb4 as6 (Ronak Mckeon RN).} Route: IVP; Site: right forearm; 06:20 Follow up: Response: No adverse reaction as6 04:12 Drug: Nitro Drip 5 mcg/min - (Nitroglycerin 50 mg, D5W 250 ml) Route: IV; Rate: 50 jb4 mcg/min; Site: right forearm; 04:15 Follow up: BP 137 / 76; Pulse 68 bpm; Rate change 50 mcg/min as6 04:20 Follow up: BP 121 / 81; Pulse 77 bpm; Rate change 55 mcg/min as6 04:25 Follow up: BP 133 / 71; Pulse 78 bpm; Rate change 60 mcg/min as6 04:35 Follow up: BP 120 / 79; Pulse 73 bpm; Rate change 70 mcg/min as6 04:35 Follow up: Rate change 80 mcg/min as6 04:40 Follow up: BP 120 / 70; Pulse 76 bpm; Rate change 85 mcg/min as6 04:45 Follow up: BP 112 / 72; Pulse 75 bpm; Rate change 90 mcg/min as6 04:50 Follow up: BP 118 / 74; Pulse 78 bpm; Rate change 100 mcg/min as6 04:55 Follow up: BP 106 / 75; Pulse 72 bpm; Rate change 110 mcg/min as6 05:00 Follow up: BP 121 / 71; Pulse 71 bpm; Pain 8/10 Adult; Rate change 120 mcg/min as6 05:05 Follow up: BP 112 / 67; Pulse 72 bpm; Rate change 130 mcg/min as6 05:10 Follow up: BP 108 / 73; Pulse 77 bpm; Rate change 140 mcg/min as6 05:15 Follow up: BP 104 / 62; Pulse 73 bpm; Rate change 150 mcg/min as6 05:20 Follow up: BP 105 / 63; Pulse 72 bpm; Rate change 160 mcg/min as6 05:25 Follow up: BP 108 / 64; Pulse 70 bpm; Rate change 170 mcg/min as6 05:42 Follow up: BP 100 / 66; Pulse 71 bpm; Rate change 160 mcg/min as6 05:59 Follow up: BP 106 / 68; Pulse 72 bpm; Rate change 150 mcg/min as6 06:20 Follow up: Response: No adverse reaction; IV Status: Infusion continued upon transfer as6 04:21 Not Given (Duplicate Order): Nitro Drip 5 mcg/min - (Nitroglycerin 50 mg, D5W 250 ml) jb4 IV at 5 mcg/min See Administration Instructions; Recommended max rate 400 mcg/min; Titrate 5 to 20 mcg/min as often as every 5 minutes to achieve goal; Goal parameter SBP less than 160 bpm; Use low-sorbing IV tubing. Disposition Summary: 05/29/22 05:39 Transfer Ordered Transfer Location: [facility] sp3 Reason: Higher level of care sp3 Condition: Stable(05/29/22 05:39) sp3 Problem: an acute exacerbation(05/29/22 05:39) sp3 Symptoms: have worsened(05/29/22 05:39) sp3 Accepting Physician: ER PHYSICIAN(05/29/22 06:21) as6 Diagnosis - Unstable angina, possible stent reocclusion, chest pain sp3 Forms: - Medication Reconciliation Form sp3 - SBAR form sp3 Signatures: Paola Lux RN RN mw Bryson, James RN RN jb4 Santa Martinez MD MD sp3 Joel Liao RN RN as6 Ronak Mckeon RN jb4 Corrections: (The following items were deleted from the chart) 04:49 04:17 Intensive Care Unit sp3 mw 04:49 04:17 sp3 mw 05:38 04:17 Inpatient Admission sp3 sp3 05:38 04:17 Enoc, Kerwin sp3 sp3 05:38 04:17 Critical sp3 sp3 05:38 04:17 an acute exacerbation sp3 sp3 05:38 04:17 have worsened sp3 sp3 05:38 04:17 Standard sp3 sp3 05:38 04:17 Unstable angina, Wellen's criteria, chest pain sp3 sp3 05:38 04:49 [facility] ER HOLD mw sp3 05:38 04:49 ERHOLD- mw sp3 06:21 05:39 ER PHYSICIAN sp3 as6
--- NOTE | 2022-05-29 06:42 | ER ---
Nurse's Notes 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 as6 Coronavirus screen: At this time, the client does not indicate any symptoms associated with coronavirus-19. Ebola Screen: No symptoms or risks identified at this time. Initial Sepsis Screen: Does the patient meet any 2 criteria? No. Patient's initial sepsis screen is negative. Does the patient have a suspected source of infection? No. Patient's initial sepsis screen is negative. Risk Assessment: Do you want to hurt yourself or someone else? Patient reports no desire to harm self or others. Onset of symptoms was May 28, 2022 at 23:30. 03:48 Method Of Arrival: EMS: [facility] as6 03:48 Acuity: CHRIS 2 as6 Historical: - Allergies: 03:50 PENICILLINS; as6 03:50 Sulfa (Sulfonamide Antibiotics); as6 - Home Meds: 04:54 Lasix 40 mg Oral tab 1 tab once daily [Active]; Metoprolol Tartrate 12.5mg Oral 2 times jb4 per day [Active]; tamsulosin 0.4 mg oral cap 2 caps once daily [Active]; Brilinta 90 mg oral tab 1 tab 2 times per day [Active]; lisinopril 2.5 mg Oral tab 1 tab once daily [Active]; atorvastatin 40 mg oral tab 1 tab once daily [Active]; cholecalciferol (vitamin D3) 1000 units oral cap daily [Active]; cyanocobalamin (vitamin B-12) 1,000 mcg oral tab daily [Active]; cyclobenzaprine 5 mg Oral tab 0.5 tab 3 times per day [Active]; cyproheptadine 4 mg Oral tab 1 tab nightly [Active]; diclofenac sodium 75 mg twice a day [Active]; duloxetine 20 mg oral CDRS daily [Active]; finasteride 5 mg oral tab 1 tab once daily [Active]; gabapentin 600 mg oral tab 2 cap 3 times per day [Active]; omeprazole 20 mg Oral cpDR 1 cap 2 times per day [Active]; trazodone 25 mg Oral tab 0.5 tab nightly [Active]; bupropion HCl 150 mg Oral Tb24 three times a day [Active]; - PMHx: 03:50 neuropathy; Myocardial infarction; as6 - PSHx: 03:50 Appendectomy; Tonsillectomy; Stented artery; as6 - Immunization history:: Client reports receiving the 2nd dose of the Covid vaccine, moderna. - Social history:: Smoking status: Patient reports the use of cigarette tobacco products, smokes one pack cigarettes per day. Screenin:00 Abuse screen: Denies threats or abuse. Denies injuries from another. Nutritional as6 screening: No deficits noted. Tuberculosis screening: No symptoms or risk factors identified. Fall Risk None identified. Assessment: 03:59 General: Appears uncomfortable, Behavior is cooperative, agitated. Pain: Complains of as6 pain in chest Pain radiates to left arm. Cardiovascular: Reports chest pain, shortness of breath. Respiratory: Reports shortness of breath. Derm: Skin is dusky. 04:00 Cardiovascular: Edema is 2+ to left midcalf, left ankle, left foot, left toes, right as6 midcalf, right ankle, right foot and right toes. 04:12 Reassessment: Nitro drip started at 50mcg/min per ER physicians orders. jb4 04:55 General: pt moaning. . Pain: Complains of pain in chest, right arm, left arm and neck. as6 05:09 General: "The pain in my chest neck and arm is really bad" . as6 05:37 Derm: Skin is diaphoretic. as6 Vital Signs: 03:48 BP 141 / 81; Pulse 68; Resp 19 S; Temp 98.2(O); Pulse Ox 98% on R/A; Weight 72.12 kg as6 (R); Height 5 ft. 7 in. (170.18 cm) (R); Pain 9/10; 04:04 Weight 76.2 kg (M); as6 04:12 BP 131 / 76; Pulse 73; Resp 20 S; Pulse Ox 98% on 3 lpm NC; as6 04:15 BP 137 / 76; Pulse 68; as6 04:20 BP 121 / 81; Pulse 77; as6 04:25 BP 133 / 71; Pulse 78; as6 04:35 BP 120 / 79; Pulse 73; as6 04:40 BP 120 / 70; Pulse 76; as6 04:45 BP 112 / 72; Pulse 75; as6 04:48 BP 112 / 72; Pulse 75; Resp 17 S; Pulse Ox 96% on 3 lpm NC; Pain 8/10; as6 04:50 BP 118 / 74; Pulse 78; as6 04:55 BP 106 / 75; Pulse 72; as6 05:00 BP 121 / 71; Pulse 71; Pain 8/10; as6 05:01 BP 121 / 71; Pulse 71; Resp 12 S; Pulse Ox 97% on 3 lpm NC; Pain 8/10; as6 05:04 Temp 97.8(O); kl 05:05 BP 112 / 67; Pulse 72; as6 05:10 BP 108 / 73; Pulse 77; as6 05:15 BP 104 / 62; Pulse 73; as6 05:20 BP 105 / 63; Pulse 72; as6 05:25 BP 108 / 64; Pulse 70; as6 05:29 BP 108 / 64; Pulse 68; Resp 17 S; Pulse Ox 95% on 3 lpm NC; as6 05:35 BP 100 / 64; Pulse 76; Resp 15 S; Pulse Ox 96% on 3 lpm NC; as6 05:42 BP 100 / 66; Pulse 71; as6 05:59 BP 106 / 68; Pulse 72; as6 06:07 BP 102 / 65; Pulse 68; Resp 18 S; Pulse Ox 96% on 3 lpm NC; as6 04:04 Body Mass Index 26.31 (76.20 kg, 170.18 cm) as6 ED Course: 03:35 Patient arrived in ED. ja2 03:48 Joel Liao, VETO is Primary Nurse. as6 03:50 Triage completed. as6 03:50 Inserted saline lock: 18 gauge in left forearm, using aseptic technique. Blood jb4 collected. Inserted saline lock: 18 gauge in right forearm, using aseptic technique. 03:51 Santa Martinez MD is Attending Physician. sp3 03:54 Arm band placed on. as6 04:00 Placed in gown. Bed in low position. Call light in reach. Side rails up X2. Client as6 placed on continuous cardiac and pulse oximetry monitoring. NIBP monitoring applied. 04:16 Kerwin Stubbs MD is Hospitalizing Provider. sp3 04:47 Notified ED physician of a critical lab result(s). platelet count 128,100. kl 04:55 Tried to initiate transfer to [facility], phone just kept ringing and then eventually dropped wm call, immediately tried thru stemi ext per Dr. Martinez's request, and same thing happened again. 05:13 Initiated call with [facility]. 06:07 No provider procedures requiring assistance completed. Patient transferred, IV remains as6 in place. 06:15 Pt accepted for transfer to [facility] ICU Naval Inspector by Dr. Pino, Billy \\T\\ [id number]. Pt was to be transport by [facility], but denied due to weather, fog, LJ is taking by ground now. Administered Medications: 03:45 Drug: Aspirin Chewable Tablet 324 mg Route: PO; as6 06:20 Follow up: Response: No adverse reaction as6 03:47 Drug: Nitroglycerin 0.4 mg Route: Sublingual; as6 04:05 Drug: Nitroglycerin 0.4 mg Route: Sublingual; as6 06:20 Follow up: Response: No adverse reaction as6 04:10 Drug: Heparin (CT Drip) 12 units/kg/hr - (HEParin 07906 units, D5W 500 ml) as6 {Co-Signature: [email or web address] (Ronak Mckeon RN).} Route: IV; Rate: calculated rate; Site: right forearm; 06:20 Follow up: Response: No adverse reaction; IV Status: Infusion continued upon transfer as6 04:11 Drug: Heparin (CT-Bolus No thrombolytic) - HEParin 60 units/kg {Co-Signature: ramya as6 (Ronak Mckeon RN).} Route: IVP; Site: right forearm; 06:20 Follow up: Response: No adverse reaction as6 04:12 Drug: Nitro Drip 5 mcg/min - (Nitroglycerin 50 mg, D5W 250 ml) Route: IV; Rate: 50 jb4 mcg/min; Site: right forearm; 04:15 Follow up: BP 137 / 76; Pulse 68 bpm; Rate change 50 mcg/min as6 04:20 Follow up: BP 121 / 81; Pulse 77 bpm; Rate change 55 mcg/min as6 04:25 Follow up: BP 133 / 71; Pulse 78 bpm; Rate change 60 mcg/min as6 04:35 Follow up: BP 120 / 79; Pulse 73 bpm; Rate change 70 mcg/min as6 04:35 Follow up: Rate change 80 mcg/min as6 04:40 Follow up: BP 120 / 70; Pulse 76 bpm; Rate change 85 mcg/min as6 04:45 Follow up: BP 112 / 72; Pulse 75 bpm; Rate change 90 mcg/min as6 04:50 Follow up: BP 118 / 74; Pulse 78 bpm; Rate change 100 mcg/min as6 04:55 Follow up: BP 106 / 75; Pulse 72 bpm; Rate change 110 mcg/min as6 05:00 Follow up: BP 121 / 71; Pulse 71 bpm; Pain 8/10 Adult; Rate change 120 mcg/min as6 05:05 Follow up: BP 112 / 67; Pulse 72 bpm; Rate change 130 mcg/min as6 05:10 Follow up: BP 108 / 73; Pulse 77 bpm; Rate change 140 mcg/min as6 05:15 Follow up: BP 104 / 62; Pulse 73 bpm; Rate change 150 mcg/min as6 05:20 Follow up: BP 105 / 63; Pulse 72 bpm; Rate change 160 mcg/min as6 05:25 Follow up: BP 108 / 64; Pulse 70 bpm; Rate change 170 mcg/min as6 05:42 Follow up: BP 100 / 66; Pulse 71 bpm; Rate change 160 mcg/min as6 05:59 Follow up: BP 106 / 68; Pulse 72 bpm; Rate change 150 mcg/min as6 06:20 Follow up: Response: No adverse reaction; IV Status: Infusion continued upon transfer as6 04:21 Not Given (Duplicate Order): Nitro Drip 5 mcg/min - (Nitroglycerin 50 mg, D5W 250 ml) jb4 IV at 5 mcg/min See Administration Instructions; Recommended max rate 400 mcg/min; Titrate 5 to 20 mcg/min as often as every 5 minutes to achieve goal; Goal parameter SBP less than 160 bpm; Use low-sorbing IV tubing. Medication: 04:00 VIS not applicable for this client. as6 Outcome: 04:17 Decision to Hospitalize by Provider. sp3 05:39 ER care complete, transfer ordered by . sp3 06:07 Transferred by ground EMS to [facility], Transfer form completed. X-rays sent as6 w/ patient. 06:07 critical 06:07 Instructed on the need for transfer. 06:21 Patient left the ED. as6 Signatures: Sandra Ray RN Ronak Ndiaye RN RN jb4 Richa Watson Setul, MD MD sp3 Haley Guillen Ashby, RN RN as6 Ronak [email or web address] Corrections: (The following items were deleted from the chart) 04:09 04:00 Nitroglycerin 0.4 mg Sublingual as6 as6 04:21 04:13 Nitro Drip 5 mcg/min - (Nitroglycerin 50 mg, D5W 250 ml) IV at 5 mcg/min in left jb4 forearm as6 05:06 04:55 Tried to initiate transfer to [facility], phone just kept ringing and then eventually wm dropped call, immediately tried again and same thing happened again wm
[2022-05-29 06:43] LABS: Absolute Lymphocytes (CBC) 1.8 K/uL (0.7-4.9); Hematocrit 34.8 % (39.6-49.0); MCV 86.9 fL (80-100); MPV 6.9 fL (7.6-11.3); RBC Red Blood Cell Count 4.01 M/uL (4.33-5.43)
[2022-05-29 06:44] LABS: Protime INR 1.31
[2022-05-29 06:45] LABS: SARS-CoV-2 Antigen Rapid Res Negative (Negative)
[2022-05-29 06:55] LABS: Troponin High Sensitivity 320.2 pg/mL (<58.9)
[2022-05-29 08:27] VITALS: TEMP 97.8
[2022-05-29 08:42] VITALS: O2SAT 96
[2022-05-29 08:45] VITALS: BP 106/68
--- NOTE | 2022-05-30 06:32 | EKG ---
Test Date: 2022-05-29 Test Time: 03:42:37 Major Donor Coordinator: KEN MEASUREMENT RESULTS: Intervals: Rate: 70 GA: 216 QRSD: 112 QT: 424 QTc: 457 [place]: P: 62 GA: 216 QRS: -48 T: 44 INTERPRETIVE STATEMENTS: Sinus rhythm with 1st degree AV block Left anterior fascicular block Inferior infarct, age undetermined T wave abnormality, consider anterolateral ischemia Abnormal ECG Compared to ECG 05/10/2022 14:40:14 First degree AV block now present Left anterior fascicular block now present T-wave abnormality now present Possible ischemia now present ST (T wave) deviation no longer present Myocardial infarct finding still present Electronically Signed On 05-30-22 06:30:30 FAGOT MAKER by David Dallas
--- NOTE | 2022-05-30 06:32 | EKG ---
Test Date: 2022-05-29 Test Time: 03:53:52 Electronic Warfare Operator: KEN MEASUREMENT RESULTS: Intervals: Rate: 77 MO: 206 QRSD: 112 QT: 372 QTc: 420 [place]: P: 56 MO: 206 QRS: -56 T: 65 INTERPRETIVE STATEMENTS: Normal sinus rhythm Left anterior fascicular block Cannot rule out Inferior infarct (masked by fascicular block?), age undetermined T wave abnormality, consider anterior ischemia Abnormal ECG Compared to ECG 05/10/2022 14:40:14 Left anterior fascicular block now present T-wave abnormality now present Possible ischemia now present ST (T wave) deviation no longer present Myocardial infarct finding still present Electronically Signed On 05-30-22 06:30:29 INSURANCE REPRESENTATIVE by David Dallas
== END 2022-05-29 06:21 | disposition short-term general hospital (02) ==
LOC: ER 03:33
DX: I20.0 Unstable angina (principal); R07.9 Chest pain, unspecified; I25.2 Old myocardial infarction; Z20.822 Contact with and (suspected) exposure to COVID-19; Z88.0 Allergy status to penicillin; Z88.2 Allergy status to sulfonamides
CPT/HCPCS: 96365; 93005 ×2; 85025; 80048; 36415; 83735; 85610; 80076; 84484; 83880; 71045; 99285; 87811; J1644 ×2

== ENCOUNTER 2022-06-19 11:40 | Observation (INO) | payer OTHER ==
[2022-06-19] MEDS ORDERED: METHYLPREDNISOLONE 125 MG INJ ONE (12:06)
[2022-06-19] MEDS ORDERED: IPRATROPIUM BROM 0.5MG/2.5ML ONE (12:06)
[2022-06-19] MEDS ORDERED: ALBUTEROL 2.5 MG/3 ML NEB SOL ONE (12:06)
[2022-06-19 12:27] LABS: Absolute Lymphocytes (CBC) 0.6 K/uL (0.7-4.9); Hematocrit 34.5 % (39.6-49.0); Lymphocytes % 17.9 % (15.3-44.8); MCV 90.4 fL (80-100); MPV 6.7 fL (7.6-11.3); RBC Red Blood Cell Count 3.81 M/uL (4.33-5.43)
[2022-06-19 12:34] LABS: Albumin 2.9 g/dL (3.4-5.0); Bilirubin Total 0.8 mg/dL (0.2-1.0); Magnesium 2.1 mg/dL (1.8-2.4); Potassium 4.4 mmol/L (3.5-5.1); Protein, Total 6.6 g/dL (6.4-8.2)
[2022-06-19 12:54] LABS: SARS-COV-2 RT PCR NEGATIVE (NEGATIVE)
--- NOTE | 2022-06-19 12:57 | RAD REPORT ---
EXAM DESCRIPTION: RAD - Chest Single View - 06/19/2022 12:43 pm CLINICAL HISTORY: SOB COMPARISON: Chest Single View dated 05/29/2022; Chest Single View dated 05/18/2022; Chest Single View dated 05/13/2022; Chest Single View dated 05/12/2022; Thorax W/ Con dated 05/18/2022 FINDINGS: Lines: None. Lungs: Bilateral interstitial airspace disease more predominant in the lung bases. Pleural: Small effusions. Cardiac: Cardiomegaly. Mediastinum: Within normal limits. Bones: No acute fractures. Other: None IMPRESSION: Bilateral interstitial and airspace disease favored represent pulmonary edema. Multifoca l pneumonia could appear similar.
--- NOTE | 2022-06-19 13:00 | ER ---
Nurse's Notes [facility] Name: Navjot Meneses Age: 72 yrs Sex: Male : 1950 Arrival Date: 06/19/2022 Time: 11:45 Bed 6 Private MD: Diagnosis: CHF Exacerbation;Nonspecific chest pain Presentation: 06/19 11:45 Chief complaint: Patient states: chest pain that woke him up today approximately at aa5 0600. Reports ND approximately 1 month ago and Hx of heart stents. Given 324 mg ASA and 0.4 mg Nitro SL by EMS SOFTWARE DEVELOPER MID LEVEL. 11:45 Coronavirus screen: At this time, the client does not indicate any symptoms associated aa5 with coronavirus-19. Ebola Screen: Patient denies travel to an Ebola-affected area in the 21 days before illness onset. Initial Sepsis Screen: Does the patient meet any 2 criteria? No. Patient's initial sepsis screen is negative. Does the patient have a suspected source of infection? No. Patient's initial sepsis screen is negative. Risk Assessment: Do you want to hurt yourself or someone else? Patient reports no desire to harm self or others. Onset of symptoms was June 19, 2022. 11:45 Acuity: CHRIS 2 aa5 11:45 Method Of Arrival: EMS: [facility] aa5 Historical: - Allergies: 11:55 PENICILLINS; aa5 11:55 Sulfa (Sulfonamide Antibiotics); aa5 - Home Meds: 16:04 atorvastatin 40 mg Oral tab 1 tab once daily [Active]; BRILINTA 90 mg Oral tab 1 tab 2 mb9 times per day [Active]; bupropion HCl 150 mg Oral Tb24 three times a day [Active]; cholecalciferol (vitamin D3) 1000 units Oral cap daily [Active]; finasteride 5 mg Oral tab 1 tab once daily [Active]; trazodone 25 mg Oral tab 0.5 tab nightly [Active]; Lasix 40 mg Oral tab 1 tab once daily [Active]; gabapentin 600 mg Oral tab 2 cap 3 times per day [Active]; lisinopril 2.5 mg Oral tab 1 tab once daily [Active]; tamsulosin 0.4 mg Oral cap 2 caps once daily [Active]; omeprazole 20 mg Oral cpDR 1 cap 2 times per day [Active]; Metoprolol Tartrate 12.5mg Oral 2 times per day [Active]; duloxetine 20 mg Oral CDRS daily [Active]; cyproheptadine 4 mg Oral tab 1 tab nightly [Active]; cyanocobalamin (vitamin B-12) 1,000 mcg Oral tab daily [Active]; cyclobenzaprine 5 mg Oral tab 0.5 tab 3 times per day [Active]; diclofenac sodium 75 mg twice a day [Active]; - PMHx: 11:55 Myocardial infarction; neuropathy; aa5 - PSHx: 11:55 Appendectomy; Stented artery; Tonsillectomy; heart stents; aa5 - Social history:: Smoking status: unknown. Screenin:45 Abuse screen: Denies threats or abuse. Nutritional screening: No deficits noted. mb9 Tuberculosis screening: No symptoms or risk factors identified. Fall Risk None identified. Assessment: 12:00 General: Appears uncomfortable, Behavior is calm, cooperative, appropriate for age. mb9 Pain: Complains of pain in chest Pain does not radiate. Pain currently is 4 out of 10 on a pain scale. Quality of pain is described as aching, Pain began suddenly, Aggravated by increased activity, repositioning. 12:00 Neuro: May Agitation-Sedation Scale (RASS): 0 - Alert and Calm Level of mb9 Consciousness is awake, alert, obeys commands, Oriented to person, place, time, situation, Appropriate for age. Cardiovascular: Heart tones S1 S2 present Capillary refill < 3 seconds Rhythm is sinus bradycardia. Respiratory: Reports shortness of breath at rest Airway is patent Respiratory effort is even, unlabored, Respiratory pattern is regular, symmetrical, Breath sounds with wheezes bilaterally. Respiratory: Reports shortness of breath Sputum is thick, green GI: Abdomen is flat, Bowel sounds present X 4 quads. : No signs and/or symptoms were reported regarding the genitourinary system. EENT: No signs and/or symptoms were reported regarding the EENT system. Derm: Skin is pink, warm \T\ dry. Musculoskeletal: Range of motion: intact in all extremities. 13:30 Reassessment: Patient states symptoms have improved. Neuro: Level of Consciousness is mb9 awake, alert, obeys commands, Oriented to person, place, time, situation, Appropriate for age. Cardiovascular: Rhythm is sinus bradycardia Chest pain is described as vague, quality is squeezing, episodes are intermittent. Respiratory: Reports shortness of breath at rest Airway is patent pt using accessory muscles of abdomen when breathing. Derm: Skin is pink, warm \T\ dry. 15:00 Reassessment: Patient denies pain at this time. Patient states feeling better. Patient mb9 states symptoms have improved. 15:00 Neuro: Level of Consciousness is awake, alert, obeys commands. Cardiovascular: Rhythm mb9 is sinus bradycardia. Respiratory: Airway is patent. Vital Signs: 11:45 BP 150 / 86; Pulse 56; Resp 18 S; Temp 97.6(TE); Pulse Ox 99% on R/A; Pain 4/10; aa5 12:15 BP 160 / 130; Pulse 52; Resp 20; Pulse Ox 99% ; Pain 4/10; mb9 13:14 BP 161 / 86; Pulse 62; Resp 20; Pulse Ox 97% ; Pain 0/10; aa5 13:45 BP 155 / 68; Pulse 58; Resp 20; Pulse Ox 97% on R/A; Pain 3/10; mb9 16:02 BP 173 / 81; Pulse 62; Resp 20; Pulse Ox 100% on R/A; mb9 ED Course: 11:45 Patient arrived in ED. bd 11:45 Arm band placed on Patient placed in an exam room, on a stretcher. aa5 11:45 Placed in gown. Bed in low position. Call light in reach. Side rails up X 1. mb9 11:45 EKG done, by ED staff, reviewed by Alyssa Escobar MD. mb9 11:46 Alyssa Escobar MD is Attending Physician. sd2 11:55 Triage completed. aa5 11:57 Maintain EMS IV. Gauge \T\ site: 18G R AC . aa5 12:10 Gladys Cohen, VETO is Primary Nurse. mb9 12:10 COVID-19/FLU A+B Sent. mb9 12:10 Troponin High Sensitivity Sent. mb9 12:10 Magnesium Sent. mb9 12:10 CMP Sent. mb9 12:10 CBC with Diff Sent. mb9 12:44 XRAY Chest (1 view) In Process Unspecified. EDMS 12:59 Vicente Carter is Hospitalizing Provider. sd2 16:03 No provider procedures requiring assistance completed. Patient admitted, IV remains in mb9 place. Administered Medications: 12:10 Drug: Albuterol - atroVENT (ipratropium) (3:1) (2.5 mg - 0.5 mg) 3 ml Route: Nebulizer; mb9 12:30 Follow up: Response: No adverse reaction mb9 12:10 Drug: SOLU-Medrol (methylPrednisoLONE) 125 mg Route: IVP; Site: right antecubital; mb9 12:30 Follow up: Response: No adverse reaction mb9 13:14 Drug: Lasix (furosemide) 80 mg Route: IVP; Site: right antecubital; aa5 13:20 Follow up: Response: No adverse reaction aa5 Medication: 16:03 VIS not applicable for this client. mb9 Output: 14:39 Urine: 1000ml (Voided); Total: 1000ml. aa5 Outcome: 13:00 Decision to Hospitalize by Provider. sd2 16:03 Admitted to Med/surg accompanied by tech, with oxygen, with chart, Report called to bereket Mesa RN 16:03 Condition: stable 16:03 Discharge instructions given to patient, Instructed on the need for admit. 16:05 Patient left the ED. mb9 Signatures: Dispatcher [employer] EDMS Dee Larson Audri, RN RN aa5 Alyssa Escobar MD MD sd2 Gladys Cohen RN RN mb9 Corrections: (The following items were deleted from the chart) 13:58 13:15 BP 161 / 86; Pulse 62bpm; Resp 20bpm; Pulse Ox 97%; Pain 0/10; mb9 aa5
--- NOTE | 2022-06-19 13:00 | EDPHYS ---
Physician Documentation [facility] Name: Navjot Meneses Age: 72 yrs Sex: Male : 1950 Arrival Date: 06/19/2022 Time: 11:45 Bed 6 Private MD: ED Physician Alyssa Escobar HPI: 06/19 12:01 This 72 yrs old Male presents to ER via EMS with complaints of Chest Pain. sd2 12:01 72 yo M presents via EMS with CC of chest pain that started upon awakening this AM with sd2 associated SOB. Reports ongoing cough productive of yellow sputum with hx of COPD. last used inhaler this AM. Denies fever, vomiting, diarrhea. Received 324 ASA and 1 NTG with EMS with improvement of pain to 10 currently. Pt with hx of OR 1 month ago and had stent placed at [facility]. [employer]st [place] at the [place].. Historical: - Allergies: 11:55 PENICILLINS; aa5 11:55 Sulfa (Sulfonamide Antibiotics); aa5 - Home Meds: 16:04 atorvastatin 40 mg Oral tab 1 tab once daily [Active]; BRILINTA 90 mg Oral tab 1 tab 2 mb9 times per day [Active]; bupropion HCl 150 mg Oral Tb24 three times a day [Active]; cholecalciferol (vitamin D3) 1000 units Oral cap daily [Active]; finasteride 5 mg Oral tab 1 tab once daily [Active]; trazodone 25 mg Oral tab 0.5 tab nightly [Active]; Lasix 40 mg Oral tab 1 tab once daily [Active]; gabapentin 600 mg Oral tab 2 cap 3 times per day [Active]; lisinopril 2.5 mg Oral tab 1 tab once daily [Active]; tamsulosin 0.4 mg Oral cap 2 caps once daily [Active]; omeprazole 20 mg Oral cpDR 1 cap 2 times per day [Active]; Metoprolol Tartrate 12.5mg Oral 2 times per day [Active]; duloxetine 20 mg Oral CDRS daily [Active]; cyproheptadine 4 mg Oral tab 1 tab nightly [Active]; cyanocobalamin (vitamin B-12) 1,000 mcg Oral tab daily [Active]; cyclobenzaprine 5 mg Oral tab 0.5 tab 3 times per day [Active]; diclofenac sodium 75 mg twice a day [Active]; - PMHx: 11:55 Myocardial infarction; neuropathy; aa5 - PSHx: 11:55 Appendectomy; Stented artery; Tonsillectomy; heart stents; aa5 - Social history:: Smoking status: unknown. ROS: 12:01 Constitutional: Negative for fever, chills, and weight loss, Eyes: Negative for injury, sd2 pain, redness, and discharge. 12:01 Abdomen/GI: Negative for abdominal pain, nausea, vomiting, diarrhea. MS/Extremity: Negative for injury and deformity, Skin: Negative for injury, rash, and discoloration, Neuro: Negative for headache, numbness and tingling. 12:01 Cardiovascular: Positive for chest pain, Negative for orthopnea, palpitations. 12:01 Respiratory: Positive for cough, shortness of breath, wheezing. Exam: 12:01 Constitutional: This is a well developed, well nourished patient who is awake, alert, sd2 and in no acute distress. Head/Face: Normocephalic, atraumatic. Eyes: EOMI, normal conjunctiva bilaterally Chest/axilla: Normal chest wall appearance and motion. Nontender with no deformity. Cardiovascular: Regular rate and rhythm with a normal S1 and S2. No gallops, murmurs, or rubs. 2+ distal pulses. Respiratory: Lungs have equal breath sounds bilaterally, diminshed BS bilaterally. Pt with intermittent episodes of increased WOB with tachypnea and subcostal retractions with accessory muscle usage. Abdomen/GI: Soft, non-tender, with normal bowel sounds. No guarding or rebound. No evidence of tenderness throughout. Skin: Warm, dry with normal turgor. Normal color with no rashes, no lesions, and no evidence of cellulitis. MS/ Extremity: Pulses equal, no cyanosis. Neurovascular intact. Full, normal range of motion. Ambulatory without difficulty. Psych: Awake, alert, with orientation to person, place and time. Behavior, mood, and affect are within normal limits. 12:01 ECG was reviewed by the Attending Physician. Sinus bradycardia, rate 54, no STEMI criteria Vital Signs: 11:45 BP 150 / 86; Pulse 56; Resp 18 S; Temp 97.6(TE); Pulse Ox 99% on R/A; Pain 4/10; aa5 12:15 BP 160 / 130; Pulse 52; Resp 20; Pulse Ox 99% ; Pain 4/10; mb9 13:14 BP 161 / 86; Pulse 62; Resp 20; Pulse Ox 97% ; Pain 0/10; aa5 13:45 BP 155 / 68; Pulse 58; Resp 20; Pulse Ox 97% on R/A; Pain 3/10; mb9 16:02 BP 173 / 81; Pulse 62; Resp 20; Pulse Ox 100% on R/A; mb9 MDM: 11:58 Patient medically screened. sd2 12:58 Differential diagnosis: Differential diagnosis includes but is not limited to: ACS, sd2 DVT/PE, pneumothorax, dissection, musculoskeletal, anxiety, anemia, electrolyte abnormality, pneumonia, CHF, COPD among others. Data reviewed: vital signs, nurses notes, lab test result(s), EKG, radiologic studies. Counseling: I had a detailed discussion with the patient and/or guardian regarding: the historical points, exam findings, and any diagnostic results supporting the discharge/admit diagnosis, lab results, radiology results, the need for further work-up and treatment in the hospital. 06/19 12:01 Order name: CBC with Diff; Complete Time: 12:51 sd2 06/19 12:01 Order name: CMP; Complete Time: 12:51 sd2 06/19 12:01 Order name: Magnesium; Complete Time: 12:51 sd2 06/19 12:01 Order name: Troponin High Sensitivity; Complete Time: 12:51 sd2 06/19 12:01 Order name: BNP; Complete Time: 12:51 sd2 06/19 12:01 Order name: COVID-19/FLU A+B; Complete Time: 12:55 sd2 06/19 12:01 Order name: EKG - Nurse/Tech; Complete Time: 12:02 sd2 06/19 12:01 Order name: XRAY Chest (1 view); Complete Time: 13:18 sd2 Administered Medications: 12:10 Drug: Albuterol - atroVENT (ipratropium) (3:1) (2.5 mg - 0.5 mg) 3 ml Route: Nebulizer; mb9 12:30 Follow up: Response: No adverse reaction mb9 12:10 Drug: SOLU-Medrol (methylPrednisoLONE) 125 mg Route: IVP; Site: right antecubital; mb9 12:30 Follow up: Response: No adverse reaction mb9 13:14 Drug: Lasix (furosemide) 80 mg Route: IVP; Site: right antecubital; aa5 13:20 Follow up: Response: No adverse reaction aa5 Disposition Summary: 06/19/22 13:00 Hospitalization Ordered Hospitalization Status: Inpatient Admission sd2 Provider: Vicente Carter2 Location: Telemetry/MedSur (Inpatient) sd2 Condition: Stable sd2 Problem: an acute exacerbation sd2 Symptoms: have improved sd2 Bed/Room Type: Standard ny2 Room Assignment: 215(06/19/22 15:38) bd Diagnosis - CHF Exacerbation sd2 - Nonspecific chest pain sd2 Forms: - Medication Reconciliation Form sd2 - SBAR form sd2 Signatures: Dispatcher [employer] EDDee Coleman Audri RN RN aa5 Alyssa Escobar MD MD sd2 Gladys Cohen RN RN mb9 Corrections: (The following items were deleted from the chart) 15:38 13:00 sd2 bd
[2022-06-19] MEDS ORDERED: FUROSEMIDE 40 MG/4 ML VIAL ONE ×2 (13:08→15:36)
[2022-06-19] MEDS ORDERED: ACETAMINOPHEN 325 MG TABLET PO PRN (14:13)
[2022-06-19] MEDS ORDERED: HYDROCODONE/APAP 5/325 MG TAB PO PRN (14:13)
[2022-06-19] MEDS ORDERED: ASPIRIN 81 MG CHEWABLE TABLET PO ONE (14:13)
[2022-06-19] MEDS ORDERED: ONDANSETRON 4 MG/2 ML VIAL IV PRN (14:36)
[2022-06-19] MEDS ORDERED: CYCLOBENZAPRINE 10 MG TAB PO PRN (14:37)
--- NOTE | 2022-06-19 14:42 | P.HP ---
Certification for Inpatient Patient admitted to: Inpatient With expected LOS: >2 Midnights Patient will require the following post-hospital care: None Practitioner: I am a practitioner with admitting privileges, knowledge of patient current condition, hospital course, and medical plan of care. Services: Services provided to patient in accordance with Admission requirements found in Title 42 Section 412.3 of the Code of Federal Regulations Patient History Date of Service: 06/19/22 Reason for admission: Chest pain, SOB History of Present Illness: Patient is a 72-year-old male with a past medical history significant for HLD, hypertension, CHF, BPH, COPD, peripheral neuropathy, MA, CAD with stents who presents with complaint of chest pain and shortness of breath onset this morning. Patient indicated that chest pain is located in the whole chest wall. Patient rated pain as 5/10 in severity and described pain as pressure in quality. Patient reported associated signs and symptoms of diaphoresis and bilateral lower extremity edema. Patient denies any other signs and symptoms. Symptoms are aggravated by exertion and relieved by nothing. Patient decided to present to the hospital due to worsening symptoms. Allergies Penicillins Adverse Reaction (Severe, Verified 05/12/22 12:31) swelling face, and toungue Sulfa (Sulfonamide Antibiotics) Adverse Reaction (Verified 05/12/22 12:31) swelling face, and tounge Home Medications: Atorvastatin Calcium 40 mg PO DAILY 05/12/22 Cholecalciferol (Vitamin D3) [Vitamin D3] 1,000 unit PO DAILY 05/12/22 Cyanocobalamin [Vitamin B-12*] 1,000 mcg PO DAILY 05/12/22 Cyclobenzaprine HCl 0.5 tab PO TID PRN 05/12/22 Cyproheptadine HCl 4 mg PO BEDTIME 05/12/22 Diclofenac Sodium [Voltaren] 75 mg PO BID PRN 05/12/22 Duloxetine HCl 20 mg PO DAILY 05/12/22 Finasteride 5 mg PO DAILY 05/12/22 Gabapentin 2 cap PO TID 05/12/22 Omeprazole 20 mg PO BID 05/12/22 Trazodone HCl 0.5 tab PO BEDTIME 05/12/22 buPROPion HCL [Bupropion HCl Sr] 150 mg PO TID 05/12/22 Furosemide [Lasix*] 40 mg PO DAILY #30 tab 05/20/22 Metoprolol Tartrate [Lopressor*] 12.5 mg PO BID 6AM 6PM #30 tab 05/20/22 Tamsulosin [Flomax*] 0.4 mg PO BID #60 cap 05/20/22 Ticagrelor [Brilinta*] 90 mg PO BID #60 05/20/22 lisinopriL [Prinivil*] 2.5 mg PO DAILY #15 tab 05/20/22 - Past Medical/Surgical History Diabetic: No -: Neuropathy -: coronary artery disease -: COPD -: GERD -: HTN -: HLD -: MA and CAD with stents -: BPH -: cardiac catheterization with stent placement -: appy -: tonsilectomy - Family History Father -: Heart disease, Hypertension - Social History Smoking Status: Former smoker Alcohol use: No CD- Drugs: No Caffeine use: Yes Place of Residence: Home Review of Systems General: Sweats, Unremarkable Eyes: Unremarkable ENT: Unremarkable Respiratory: Shortness of Breath, SOB with Excertion Cardiovascular: Chest Pain Gastrointestinal: Unremarkable Genitourinary: Unremarkable Musculoskeletal: Other (BLE edema) Integumentary: Unremarkable Neurological: Unremarkable Lymphatics: Unremarkable Physical Examination - Physical Exam General: Alert, Oriented x3, Cooperative, Mild distress HEENT: Atraumatic, PERRLA, Mucous membr. moist/pink, EOMI, Sclerae nonicteric Neck: Supple, 2+ carotid pulse no bruit, No LAD, Without JVD or thyroid abnormality Respiratory: Clear to auscultation bilaterally, Diminished Cardiovascular: Regular rate/rhythm, Normal S1 S2, No murmurs, Edema Capillary refill: <2 Seconds Gastrointestinal: Normal bowel sounds, Soft and benign, Non-distended, No tenderness Musculoskeletal: No clubbing, No contractures, No erythema, No tenderness, Swelling Integumentary: No rashes, No breakdown, No significant lesion, No erythema Neurological: Normal speech, Normal tone, Normal affect Lymphatics: No axilla or inguinal lymphadenopathy - Studies Laboratory Data (last 24 hrs) 06/19/22 12:05: Sodium 136, Potassium 4.4, BUN 20 H, Creatinine 1.13, Glucose 1 06, Magnesium 2.1, Total Bilirubin 0.8, AST 16, ALT 28, Alkaline Phosphatase 100 06/19/22 12:05: WBC 3.40 L, Hgb 11.6 L, Hct 34.5 L, Plt Count 415 H Assessment and Plan - Plan --Acute on chronic systolic or diastolic CHF. Continue diuresis with Lasix. Daily weight and strict I/O. Echocardiogram pending to assess cardiac structures and functions. -- Acute on chronic COPD exacerbation. Continue steroids, neb treatment with DuoNeb and O2 therapy. CT chest pending to rule out pneumonia. --Peripheral neuropathy. Continue gabapentin. --Hyperlipidemia. Continue statin. --History of CAD with stents\MA. Continue aspirin and statin. --BPH. Continue home medications. --Hypertension. Poorly controlled. Continue home medications and hydralazine as needed. --Chest pain. Likely atypical. Will trend troponins-negative so far. Telemetry to monitor for any significant arrhythmia. --CKD 2. Stable. We will continue to monitor renal functions. --Anemia of chronic disease. H&H stable. We will continue to monitor hemoglobin and transfuse if less than 7.0. --GERD. Continue home medication. -- DVT prophylaxis with heparin subQ. Discharge Plan: Home Plan to discharge in: Greater than 2 days - Advance Directives Does patient have a Living Will: No Does patient have a Durable POA for Healthcare: No - Code Status/Comfort Care Code Status Assessed: Yes Physician Review: Patient Assessed, Agree with Above Assessment and Plan Critical Care: No
[2022-06-19] MEDS ORDERED: ASPIRIN 81 MG CHEWABLE TABLET ONE (15:35)
[2022-06-19] MEDS: METOPROLOL TAR 25 MG TAB PO SCH (17:11)
[2022-06-19] MEDS: FUROSEMIDE 40 MG/4 ML VIAL IV SCH (17:11)
[2022-06-19] MEDS: PANTOPRAZOLE 40MG TABLET PO SCH (17:11)
[2022-06-19 18:08] LABS: Magnesium 2.1 mg/dL (1.8-2.4); Phosphorus 3.4 mg/dL (2.5-4.9)
[2022-06-19 18:47] VITALS: BMI 26.4
[2022-06-19] MEDS ORDERED: HYDRALAZINE HCL 20 MG/ML VIAL IV PRN (19:39)
[2022-06-19] MEDS: ALBUTEROL 2.5 MG/3 ML NEB SOL NEB SCH (20:20)
[2022-06-19] MEDS: IPRATROPIUM BROM 0.5MG/2.5ML NEB SCH (20:20)
[2022-06-19] MEDS: GABAPENTIN 300 MG CAP PO SCH (20:35)
[2022-06-19] MEDS: BUPROPRION HCL S.R. 150MG TAB PO SCH (20:35)
[2022-06-19] MEDS: TAMSULOSIN 0.4 MG SR CAP PO SCH (20:35)
[2022-06-19] MEDS: HEPARIN 5000 UNIT/ML 1 ML VIAL SQ SCH (20:35)
[2022-06-19] MEDS: TICAGRELOR 90 MG TABLET PO SCH (20:35)
[2022-06-19] MEDS ORDERED: HOME MED 1 EA UNK (Omeprazole [Omeprazole] 20 MG Capsule.Dr) PO SCH (21:00)
[2022-06-19] MEDS ORDERED: CYPROHEPTADINE HCL 4 MG PO SCH (21:00)
[2022-06-19] MEDS ORDERED: TRAZODONE 50 MG TABLET PO SCH (21:00)
--- NOTE | 2022-06-19 22:02 | RAD REPORT ---
EXAM DESCRIPTION: CT - Thorax Wo Con - 06/19/2022 9:41 pm CLINICAL HISTORY: R O PNA COMPARISON: Thorax W/ Con dated 05/18/2022; Chest Single View dated 06/19/2022 FINDINGS: Chest Wall: No suspicious thyroid nodules or pathologic lymphadenopathy. Lungs: New nonspecific approximately 4.6 x 3 cm ground-glass lesion. This was not present on the 04/21 CT. Pleura: Small to moderate right and small left pleural effusion. Mediastinum/zoe: No pathologic lymphadenopathy. Pulmonary arteries/Aorta: Limited evaluation without contrast. No aortic aneurysm. Heart: Small pericardial effusion Normal heart size. Coronary artery stents. Upper abdomen: Right nephrolithiasis. Adrenal thickening. Bones: No acute abnormality. Compression deformities in the midthoracic spine. No acute fracture. All CT scans are performed using dose optimization technique as appropriate and may include automated exposure control or mA/KV adjustment according to patient size. IMPRESSION: Mild to moderate right and small left pleural effusion with underlying atelectasis that is new from 05/18/2022. Nonspecific new ground-glass right upper lobe lesion which is possibly relate d to mild or early pneumonia. No frankly consolidative pneumonia.
[2022-06-20] MEDS: METHYLPREDNISOLONE 40 MG INJ IV SCH ×2 (00:21→08:13)
[2022-06-20] MEDS: IPRATROPIUM BROM 0.5MG/2.5ML NEB SCH ×3 (01:40→15:18)
[2022-06-20] MEDS: ALBUTEROL 2.5 MG/3 ML NEB SOL NEB SCH ×3 (01:40→15:18)
[2022-06-20 04:07] LABS: Absolute Lymphocytes (CBC) 0.3 K/uL (0.7-4.9); Hematocrit 36.3 % (39.6-49.0); Lymphocytes % 10.4 % (15.3-44.8); MCV 89.6 fL (80-100); MPV 6.9 fL (7.6-11.3); RBC Red Blood Cell Count 4.06 M/uL (4.33-5.43)
[2022-06-20] MEDS: METOPROLOL TAR 25 MG TAB PO SCH (05:25)
[2022-06-20] MEDS: BUPROPRION HCL S.R. 150MG TAB PO SCH ×2 (08:11→14:32)
[2022-06-20] MEDS: TAMSULOSIN 0.4 MG SR CAP PO SCH (08:12)
[2022-06-20] MEDS: GABAPENTIN 300 MG CAP PO SCH ×2 (08:12→14:32)
[2022-06-20] MEDS: PANTOPRAZOLE 40MG TABLET PO SCH (08:12)
[2022-06-20] MEDS: FUROSEMIDE 40 MG/4 ML VIAL IV SCH (08:13)
[2022-06-20] MEDS: TICAGRELOR 90 MG TABLET PO SCH (08:13)
[2022-06-20] MEDS: HEPARIN 5000 UNIT/ML 1 ML VIAL SQ SCH (08:13)
[2022-06-20] MEDS ORDERED: HOME MED 1 EA UNK (Cholecalciferol (Vitamin D3) [Vitamin D3] 1,000 UNIT Capsule) PO SCH (09:00)
[2022-06-20] MEDS ORDERED: DULOXETINE 20 MG CAP PO SCH (09:00)
[2022-06-20] MEDS ORDERED: VITAMIN D 1000 UNIT TAB PO SCH (09:00)
[2022-06-20] MEDS ORDERED: CYANOCOBALAMIN 1,000 MCG TAB PO SCH (09:00)
[2022-06-20] MEDS ORDERED: FINASTERIDE 5 MG TAB PO SCH (09:00)
[2022-06-20] MEDS ORDERED: ASPIRIN 81 MG CHEWABLE TABLET PO SCH (09:00)
[2022-06-20] MEDS ORDERED: lisinopriL 5 MG TAB PO SCH (09:00)
[2022-06-20] MEDS ORDERED: ATORVASTATIN 40 MG TAB PO SCH (09:00)
[2022-06-20 09:08] VITALS: TEMP 98.3
--- NOTE | 2022-06-20 13:23 | EKG ---
Test Date: 2022-06-19 Test Time: 11:53:24 Residence Supervisor: MB MEASUREMENT RESULTS: Intervals: Rate: 54 [place]: 226 QRSD: 102 QT: 472 QTc: 447 [place]: P: 64 [place]: 226 QRS: -67 T: -63 INTERPRETIVE STATEMENTS: Sinus bradycardia with 1st degree AV block Left anterior fascicular block Inferior infarct, age undetermined Anterolateral infarct, age undetermined Abnormal ECG Compared to ECG 05/29/2022 03:53:52 First degree AV block now present Sinus rhythm no longer present T-wave abnormality no longer present Possible ischemia no longer present Myocardial infarct finding still present Electronically Signed On 06-20-22 13:22:15 [employer] SPECIALIST by Rico Leary
--- NOTE | 2022-06-20 16:48 | P.DS ---
Admission Date: 06/19/22 Discharge Date: 06/20/22 Disposition: ROUTINE DISCHARGE Discharge Condition: FAIR Reason for Admission: Chest pain, SOB - Problems (1) Acute on chronic systolic heart failure Status: Acute (2) COPD exacerbation Status: Acute (3) Hypertension Status: Acute (4) Coronary artery disease Status: Acute Brief History of Present Illness: Patient is a 72-year-old male with a past medical history significant for HLD, hypertension, CHF, BPH, COPD, peripheral neuropathy, OR, CAD with stents 1 month ago who presented with complaint of chest pain and shortness of breath. Patient indicated that chest pain is located in the whole chest wall. Patient rated pain as 5/10 in severity and described pain as pressure in quality. Patient reported associated signs and symptoms of bilateral lower extremity edema. Symptoms are aggravated by exertion and relieved by nothing. Chest x-ray demonstrated bilateral interstitial and airspace disease favored to represent pulmonary edema. Patient was hospitalized for further management. Hospital Course: Troponin was negative. Patient was treated for CHF exacerbation with IV Lasix and COPD with bronchodilators. Patient clinically improved with treatment. His lower extremity edema resolved and shortness of breath significantly improved. Patient was stable on room and ambulatory. Case discussed with cardiology Dr. Dallas who is okay with discharge today and follow-up with him in the office as outpatient. Vital Signs/Physical Exam: Temp Pulse Resp BP Pulse Ox 98.3 F 54 16 124/58 L 95 06/20/22 12:00 06/20/22 12:00 06/20/22 12:00 06/20/22 12:00 06/20/22 12:00 General: Alert, In no apparent distress, Oriented x3 HEENT: Mucous membr. moist/pink Neck: JVD not distended Respiratory: Clear to auscultation bilaterally, Normal air movement Cardiovascular: No edema, Regular rate/rhythm, Normal S1 S2 Gastrointestinal: Soft and benign, Non-distended, No tenderness Musculoskeletal: No swelling Integumentary: No rashes Neurological: Normal strength at 5/5 x4 extr Laboratory Data at Discharge: WBC 3.40 K/uL (4.3-10.9) L 06/20/22 02:46 Hgb 12.2 g/dL (13.6-17.9) L 06/20/22 02:46 Hct 36.3 % (39.6-49.0) L 06/20/22 02:46 Plt Count 395 K/uL (152-406) 06/20/22 02:46 Sodium 137 mmol/L (136-145) 06/20/22 02:46 Potassium 4.0 mmol/L (3.5-5.1) 06/20/22 02:46 BUN 31 mg/dL (7-18) H 06/20/22 02:46 Creatinine 1.20 mg/dL (0.55-1.3) 06/20/22 02:46 Glucose 117 mg/dL (74-106) H 06/20/22 02:46 Phosphorus 3.4 mg/dL (2.5-4.9) 06/19/22 17:08 Magnesium 2.1 mg/dL (1.8-2.4) 06/19/22 17:08 Total Bilirubin 0.8 mg/dL (0.2-1.0) 06/19/22 12:05 AST 16 U/L (15-37) 06/19/22 12:05 ALT 28 U/L (12-78) 06/19/22 12:05 Alkaline Phosphatase 100 U/L (45-117) 06/19/22 12:05 Home Medications: Atorvastatin Calcium 40 mg PO DAILY 05/12/22 Cholecalciferol (Vitamin D3) [Vitamin D3] 1,000 unit PO DAILY 05/12/22 Cyanocobalamin [Vitamin B-12*] 1,000 mcg PO DAILY 05/12/22 Cyclobenzaprine HCl 0.5 tab PO TID PRN 05/12/22 Cyproheptadine HCl 4 mg PO BEDTIME 05/12/22 Diclofenac Sodium [Voltaren] 75 mg PO BID PRN 05/12/22 Duloxetine HCl 20 mg PO DAILY 05/12/22 Finasteride 5 mg PO DAILY 05/12/22 Gabapentin 2 cap PO TID 05/12/22 Omeprazole 20 mg PO BID 05/12/22 Trazodone HCl 0.5 tab PO BEDTIME 05/12/22 buPROPion HCL [Bupropion HCl Sr] 150 mg PO TID 05/12/22 Furosemide [Lasix*] 40 mg PO DAILY #30 tab 05/20/22 Metoprolol Tartrate [Lopressor*] 12.5 mg PO BID 6AM 6PM #30 tab 05/20/22 Tamsulosin [Flomax*] 0.4 mg PO BID #60 cap 05/20/22 Ticagrelor [Brilinta*] 90 mg PO BID #60 05/20/22 lisinopriL [Prinivil*] 2.5 mg PO DAILY #15 tab 05/20/22 Aspirin Chewable [Aspirin Chewable*] 81 mg PO DAILY #30 tab.chew 06/20/22 Fluticasone/Salmeterol [Advair 250-50 Diskus] 1 each IH BID #1 kit 06/20/22 Furosemide [Lasix] 40 mg PO DAILY #30 tab 06/20/22 New Medications: Fluticasone/Salmeterol [Advair 250-50 Diskus] 1 each IH BID #1 kit Aspirin Chewable [Aspirin Chewable*] 81 mg PO DAILY #30 tab.chew Furosemide [Lasix] 40 mg PO DAILY #30 tab Diet: AHA Activity: Ad laura Followup: David Dallas MD [ACTIVE - CAN ADMIT] - 1-2 Weeks (Please call [phone] for an appointment.) NONE,NONE [Primary Care Provider] -
[2022-06-20 17:29] VITALS: BP 107/57
[2022-06-20 17:40] VITALS: O2SAT 98
== END 2022-06-20 17:58 | disposition home or self-care (01) ==
LOC: ER 11:40 → INTOOBSV 14:11 → ERHOLD 14:11 → 2ND 16:02
PROVIDERS: ADMIT Internal Medicine; ATTEND Internal Medicine
DX: I50.23 Acute on chronic systolic (congestive) heart failure (principal); J44.1 Chronic obstructive pulmonary disease with (acute) exacerbation; I25.10 Atherosclerotic heart disease of native coronary artery without angina pectoris; G62.9 Polyneuropathy, unspecified; I25.2 Old myocardial infarction; I10 Essential (primary) hypertension; E78.5 Hyperlipidemia, unspecified; N40.1 Benign prostatic hyperplasia with lower urinary tract symptoms; Z88.0 Allergy status to penicillin; Z88.2 Allergy status to sulfonamides; Z82.49 Family history of ischemic heart disease and other diseases of the circulatory system; Z20.822 Contact with and (suspected) exposure to COVID-19; Z95.5 Presence of coronary angioplasty implant and graft
CPT/HCPCS: 0240U; 36415; 71045; 71250; 80048; 80053; 83735; 83880; 84100; 84484; 85025; 93005; 94640; 96374; 96375; 99285; J1644; J1940; J2920; J2930; J7613; J7644

== ENCOUNTER 2022-07-03 19:08 | Observation (INO) | payer OTHER ==
--- OUTSIDE RECORDS SUMMARY | 2022-07-03 19:11 | XMS REPORT | Continuity of Care Document ---
:1950 Author Organization [facility] t Address [address] [place] [address] Care Team Providers Name Role Phone DAVE OLIVER Attending Clinician Unavailable DAVE OLIVER Admitting Clinician Unavailable Payers Payer Name Policy Type Policy Number Effective Date Expiration Date S ource WELLCARE/WELLCARE [id number] 2022 [facility] 00:00:00 Problems This patient has no known problems. Allergies, Adverse Reactions, Alerts This patient has no known allergies or adverse reactions. Medications This patient has no known medications. Procedures This patient has no known procedures. Encounters Start End Encounter Admission Attending Care Care Encounter Source Date/Time Date/Time Type Type Clinicians Facility Department ID 2022-06-06 Outpatient [facility] [id number] [place] 07:28:26 [id number] [facility] 2022-05-31 Outpatient [facility] [id number] [place] 14:16:27 [id number] [facility] 2022-05-29 2022-06-03 Inpatient [facility] [id number] [facility] 07:21:00 16:44:00 DAVE Results This patient has no known results.
[2022-07-03 20:39] LABS: Protime INR 1.23
[2022-07-03 20:41] LABS: Absolute Lymphocytes (CBC) 1.5 K/uL (0.7-4.9); Hematocrit 41.9 % (39.6-49.0); Lymphocytes % 14.4 % (15.3-44.8); MCV 90.1 fL (80-100); MPV 6.7 fL (7.6-11.3); RBC Red Blood Cell Count 4.66 M/uL (4.33-5.43)
[2022-07-03 20:47] LABS: ALT/SGPT 22 U/L (16-61); AST/SGOT 14 U/L (15-37); Albumin 3.1 g/dL (3.4-5.0); Alkaline Phosphatase 102 U/L (45-117); BUN Blood Urea Nitrogen 10 mg/dL (7-18); Bicarbonate 26 mmol/L (21-32); Bilirubin Total 0.6 mg/dL (0.2-1.0); Glomerular Filtration Rate 87 ml/min (=/>90); Glucose Level 100 mg/dL (74-106); Potassium 3.6 mmol/L (3.5-5.1); Protein, Total 6.9 g/dL (6.4-8.2); Sodium Level 138 mmol/L (136-145)
[2022-07-03 20:49] LABS: C-Reactive Protein < 2.90 mg/L (<3.00)
--- NOTE | 2022-07-03 21:05 | ER ---
Nurse's Notes [facility] Name: Navjot Meneses Age: 72 yrs Sex: Male : 1950 Arrival Date: 07/03/2022 Time: 19:15 Bed 19 Private MD: Diagnosis: Rash and other nonspecific skin eruption;Peripheral swelling/edema Presentation: 07/03 19:19 Chief complaint: Patient states: bilateral calf wound infections on the back of each [facility] calf; started the last time I was here about 2-3 weeks ago I was admitted and the sore started then.. Coronavirus screen: Vaccine status: Patient reports receiving the 2nd dose of the covid vaccine. Client denies travel out of the [place] in the last 14 days. Ebola Screen: Patient negative for fever greater than or equal to 101.5 degrees Fahrenheit, and additional compatible Ebola Virus Disease symptoms Patient denies exposure to infectious person. Patient denies travel to an Ebola-affected area in the 21 days before illness onset. Initial Sepsis Screen: Does the patient meet any 2 criteria? No. Patient's initial sepsis screen is negative. Does the patient have a suspected source of infection? No. Patient's initial sepsis screen is negative. Risk Assessment: Do you want to hurt yourself or someone else? Patient reports no desire to harm self or others. 19:19 Method Of Arrival: Ambulatory [facility] 19:19 Acuity: CHRIS 3 [facility] 21:33 Onset of symptoms is unknown. as6 Triage Assessment: 19:23 General: Appears in no apparent distress. uncomfortable, slender, well groomed, well jh5 developed, Behavior is calm, cooperative, appropriate for age. Pain: Complains of pain in right leg and left leg. Historical: - Allergies: 19:23 PENICILLINS; 5 19:23 Sulfa (Sulfonamide Antibiotics); jh5 - PMHx: 19:23 Myocardial infarction; neuropathy; 5 - PSHx: 19:23 Appendectomy; Heart Stents; Stented artery; Tonsillectomy; jh5 - Immunization history:: Adult Immunizations up to date. - Social history:: Smoking status: Patient reports the use of cigarette tobacco products, smokes one-half pack cigarettes per day. Screenin:33 [facility] ED Fall Risk Assessment (Adult) History of falling in the last 3 months, as6 including since admission No falls in past 3 months (0 pts) Confusion or Disorientation No (0 pts) Intoxicated or Sedated No (0 pts). Humpty Dumpty Scale Fall Assessment Tool (age< 18yrs) Age 13 years and above (1 pt) Gender Male (2 pts) Diagnosis Other diagnosis (1 pt) Cognitive Impairments Oriented to own ability (1 pt) Environmental Factors Response to Surgery/Sedation/Anesthesia. Abuse screen: Denies threats or abuse. Denies injuries from another. Nutritional screening: No deficits noted. Tuberculosis screening: No symptoms or risk factors identified. Fall Risk No fall in past 12 months (0 pts). Assessment: 19:30 General: Appears in no apparent distress. Behavior is calm, cooperative. Pain: as6 Complains of pain in right leg and left leg. Neuro: Level of Consciousness is awake, alert, obeys commands, Oriented to person, place, time, situation. Cardiovascular: Edema is 2+ to left midcalf, left ankle, left foot, left toes, right midcalf, right ankle, right foot and right toes. Respiratory: Respiratory effort is even, unlabored. Derm: Rash noted that is papular, red, on anterior aspect of right ankle and right acharya and medial aspect of right calf and right Achilles and right calf and right ankle and lateral aspect of right calf and anterior aspect of left ankle and left acharya and left medial ankle and medial aspect of left calf and left Achilles and left calf and left lateral ankle and lateral aspect of left calf. Vital Signs: 19:19 BP 163 / 85; Pulse 62; Resp 16; Temp 98.6; Pulse Ox 100% ; Weight 73.03 kg; Height 5 [facility] ft. 7 in. (170.18 cm); Pain 6/10; 20:30 BP 157 / 72; Pulse 59; Resp 15 S; Pulse Ox 97% on R/A; as6 21:32 BP 161 / 73; Pulse 57; Resp 19 S; Pulse Ox 98% on R/A; as6 23:06 BP 166 / 89; Pulse 56; Resp 14 S; Pulse Ox 99% on R/A; as6 19:19 Body Mass Index 25.22 (73.03 kg, 170.18 cm) [facility] ED Course: 19:15 Patient arrived in ED. [facility] 19:23 Triage completed. jh5 19:23 Arm band placed on right wrist. jh5 19:31 Joel Liao, RN is Primary Nurse. as6 19:37 Abdelrahman Chambers MD is Attending Physician. kdr 20:41 Inserted saline lock: 22 gauge in left antecubital area, using aseptic technique. Blood kr3 collected. 21:03 Vicente Carter is Hospitalizing Provider. kdr 21:28 US Extremity Venous W Compression Neil In Process Unspecified. EDMS 21:34 Bed in low position. Call light in reach. Side rails up X2. as6 21:34 No provider procedures requiring assistance completed. Patient admitted, IV remains in as6 place. Administered Medications: No medications were administered Medication: 21:34 VIS not applicable for this client. as6 Outcome: 21:04 Decision to Hospitalize by Provider. kdr 23:11 Condition: stable as6 23:11 Instructed on the need for admit. 23:15 Admitted to Med/surg accompanied by nurse, via wheelchair, room 201, with chart, Report as6 called to Elizabeth LAWS 23:27 Patient left the ED. as6 Signatures: Dispatcher [employer] EDIN Abdelrahman Chambers MD MD kdr May García jj6 Haley Martins, RN RN jh5 Joel Liao, RN RN as6 Jeanne Moreland, RN RN kr3
--- NOTE | 2022-07-03 21:05 | EDPHYS ---
Physician Documentation [facility] Name: Navjot Meneses Age: 72 yrs Sex: Male : 1950 Arrival Date: 07/03/2022 Time: 19:15 Bed 19 Private MD: ED Physician Abdelrahman Chambers HPI: 07/03 20:35 This 72 yrs old Male presents to ER via Ambulatory with complaints of Wound Infection, kdr - leg. Historical: - Allergies: 19:23 PENICILLINS; jh5 19:23 Sulfa (Sulfonamide Antibiotics); jh5 - PMHx: 19:23 Myocardial infarction; neuropathy; jh5 - PSHx: 19:23 Appendectomy; Heart Stents; Stented artery; Tonsillectomy; jh5 - Immunization history:: Adult Immunizations up to date. - Social history:: Smoking status: Patient reports the use of cigarette tobacco products, smokes one-half pack cigarettes per day. ROS: 20:51 Constitutional: Negative for fever, chills, and weight loss, Eyes: Negative for injury, kdr pain, redness, and discharge, ENT: Negative for injury, pain, and discharge, Neck: Negative for injury, pain, and swelling, Cardiovascular: Negative for chest pain, palpitations, and edema, Respiratory: Negative for shortness of breath, cough, wheezing, and pleuritic chest pain, Abdomen/GI: Negative for abdominal pain, nausea, vomiting, diarrhea, and constipation, Back: Negative for injury and pain, : Negative for injury, bleeding, discharge, and swelling, Neuro: Negative for headache, weakness, numbness, tingling, and seizure activity. Psych: Negative for depression, anxiety, suicide ideation, homicidal ideation, and hallucinations, Allergy/Immunology: Negative for hives, rash, and allergies, Endocrine: Negative for neck swelling, polydipsia, polyuria, polyphagia, and marked weight changes, Hematologic/Lymphatic: Negative for swollen nodes, abnormal bleeding, and unusual bruising. 20:51 MS/extremity: Positive for pain, rash, swelling, tenderness, Negative for abrasion, decreased range of motion. Exam: 20:51 Constitutional: This is a well developed, well nourished patient who is awake, alert, kdr and in no acute distress. Head/Face: Normocephalic, atraumatic. Eyes: Pupils equal round and reactive to light, extra-ocular motions intact. Lids and lashes normal. Conjunctiva and sclera are non-icteric and not injected. Cornea within normal limits. Periorbital areas with no swelling, redness, or edema. Neck: Trachea midline, no thyromegaly or masses palpated, and no cervical lymphadenopathy. Supple, full range of motion without nuchal rigidity, or vertebral point tenderness. No Meningismus. Chest/axilla: Normal chest wall appearance and motion. Nontender with no deformity. No lesions are appreciated. Cardiovascular: Regular rate and rhythm with a normal S1 and S2. No gallops, murmurs, or rubs. Normal PMI, no JVD. No pulse deficits. Respiratory: Lungs have equal breath sounds bilaterally, clear to auscultation and percussion. No rales, rhonchi or wheezes noted. No increased work of breathing, no retractions or nasal flaring. Abdomen/GI: Soft, non-tender, with normal bowel sounds. No distension or tympany. No guarding or rebound. No evidence of tenderness throughout. Back: No spinal tenderness. No costovertebral tenderness. Full range of motion. Neuro: Awake and alert, GCS 15, oriented to person, place, time, and situation. Cranial nerves II-XII grossly intact. Motor strength 5/5 in all extremities. Sensory grossly intact. Cerebellar exam normal. Normal gait. Psych: Awake, alert, with orientation to person, place and time. Behavior, mood, and affect are within normal limits. 20:51 Skin: cellulitis, rash a mild rash is noted, rash can be described as erythematous, macular, nonspecific, on the lateral aspect of right calf, right ankle, right calf, right Achilles, medial aspect of right calf, right acharya, anterior aspect of right ankle, lateral aspect of left calf, left lateral ankle, left calf, left Achilles, medial aspect of left calf, left medial ankle, left acharya and anterior aspect of left ankle. Vital Signs: 19:19 BP 163 / 85; Pulse 62; Resp 16; Temp 98.6; Pulse Ox 100% ; Weight 73.03 kg; Height 5 jh5 ft. 7 in. (170.18 cm); Pain 6/10; 20:30 BP 157 / 72; Pulse 59; Resp 15 S; Pulse Ox 97% on R/A; as6 21:32 BP 161 / 73; Pulse 57; Resp 19 S; Pulse Ox 98% on R/A; as6 23:06 BP 166 / 89; Pulse 56; Resp 14 S; Pulse Ox 99% on R/A; as6 19:19 Body Mass Index 25.22 (73.03 kg, 170.18 cm) jh5 MDM: 20:51 Data reviewed: vital signs, nurses notes, lab test result(s), radiologic studies. kdr Counseling: I had a detailed discussion with the patient and/or guardian regarding: the historical points, exam findings, and any diagnostic results supporting the discharge/admit diagnosis, lab results, radiology results. 21:04 Patient medically screened. kdr 07/03 20:01 Order name: Blood Culture Adult (2) kdr 07/03 20:01 Order name: CBC with Diff; Complete Time: 21:33 kdr 07/03 20:01 Order name: CMP; Complete Time: 21:06 kdr 07/03 20:01 Order name: Lactate w/ 2H reflex if indic.; Complete Time: 21:06 kdr 07/03 20:01 Order name: Protime (+inr); Complete Time: 21:06 kdr 07/03 20:01 Order name: Ptt, Activated; Complete Time: 21:06 kdr 07/03 20:01 Order name: EKG; Complete Time: 20:02 kdr 07/03 20:01 Order name: Accucheck; Complete Time: 21:01 kdr 07/03 20:01 Order name: Cardiac monitoring; Complete Time: 21:01 kdr 07/03 20:01 Order name: CRP; Complete Time: 21:06 kdr 07/03 20:01 Order name: ESR; Complete Time: 21:33 kdr 07/03 20:01 Order name: US Extremity Venous W Compression Neil; Complete Time: 21:43 kdr 07/03 21:08 Order name: SARS RAPID; Complete Time: 22:16 as6 07/03 22:29 Order name: Chest Single View XRAY sb4 07/03 20:01 Order name: EKG - Nurse/Tech; Complete Time: 21:01 kdr 07/03 20:01 Order name: IV Saline Lock - Large Bore; Complete Time: 20:23 kdr 07/03 20:01 Order name: Labs collected and sent; Complete Time: 20:23 kdr 07/03 20:01 Order name: O2 Per Protocol; Complete Time: 20:23 kdr 07/03 20:01 Order name: O2 Sat Monitoring; Complete Time: 20: kdr 07/03 20:01 Order name: Vital Signs; Complete Time: 21:01 kdr Administered Medications: No medications were administered Disposition Summary: 07/03/22 21:04 Hospitalization Ordered Hospitalization Status: Observation kdr Provider: Vicente Carter Location: Telemetry/MedSurg (observation) kdr Condition: Fair kdr Problem: new kdr Symptoms: are unchanged kdr Bed/Room Type: Standard kdr Room Assignment: 201(07/03/22 22:26) eb1 Diagnosis - Rash and other nonspecific skin eruption kdr - Peripheral swelling/edema kdr Forms: - Medication Reconciliation Form kdr - SBAR form kdr Signatures: Dispatcher [employer] EDAbdelrahman Gilman MD MD kdr Danielle Esteves RN RN eb1 Haley Martins RN RN jh5 Josephine Bailey PA-C PA-C sb4 Corrections: (The following items were deleted from the chart) : 21:04 kdr eb1
--- NOTE | 2022-07-03 21:40 | RAD REPORT ---
EXAM DESCRIPTION: USExtrem Venous W Compress Bil07/03/2022 9:27 pm CLINICAL HISTORY: Leg pain COMPARISON: none FINDINGS: The common femoral, superficial femoral, popliteal and posterior tibial veins bilaterally are compressible and demonstrate augmentation. Doppler demonstrates good flow. Grayscale, color and spectral analysis performed on all vessels IMPRESSION: No evidence of deep venous thrombosis involving either lower extremity.
[2022-07-03 21:48] LABS: SARS-CoV-2 Antigen Rapid Res Negative (Negative)
--- NOTE | 2022-07-03 22:18 | P.HP ---
Certification for Inpatient Patient admitted to: Observation With expected LOS: <2 Midnights Patient will require the following post-hospital care: None Practitioner: I am a practitioner with admitting privileges, knowledge of patient current condition, hospital course, and medical plan of care. Services: Services provided to patient in accordance with Admission requirements found in Title 42 Section 412.3 of the Code of Federal Regulations Patient History Date of Service: 07/04/22 Reason for admission: Cellulitus BLE History of Present Illness: Patient is a 72 year old male with past medical history of CAD (recent [place] s/p 3 stents), chronic diastolic CHF, COPD, and hypertension who presented to the ED with complaints of rash on bilateral lower extremities. He also reports worsening in lower extremity edema. States he first noticed some wounds on the back of his legs when he was admitted 3 weeks ago and they have slowly worsened. There are 1 inch diameter circular ulcer/plaque-like lesions on his right medial ankle and left lateral ankle with surrounding erythema/cellulitus. Bilateral shins with maculopapular rash. He reports that it is painful but does not itch. His labs are unremarkable. Venous US extremities negative. ED provider wishes to admit patient for further management. Allergies Penicillins Adverse Reaction (Severe, Verified 05/12/22 12:31) swelling face, and toungue Sulfa (Sulfonamide Antibiotics) Adverse Reaction (Verified 05/12/22 12:31) swelling face, and tounge Home medications list reviewed: Yes Home Medications: Atorvastatin Calcium 40 mg PO DAILY 05/12/22 Cholecalciferol (Vitamin D3) [Vitamin D3] 1,000 unit PO DAILY 05/12/22 Cyanocobalamin [Vitamin B-12*] 1,000 mcg PO DAILY 05/12/22 Cyclobenzaprine HCl 0.5 tab PO TID PRN 05/12/22 Cyproheptadine HCl 4 mg PO BEDTIME 05/12/22 Diclofenac Sodium [Voltaren] 75 mg PO BID PRN 05/12/22 Duloxetine HCl 20 mg PO DAILY 05/12/22 Finasteride 5 mg PO DAILY 05/12/22 Gabapentin 2 cap PO TID 05/12/22 Omeprazole 20 mg PO BID 05/12/22 Trazodone HCl 0.5 tab PO BEDTIME 05/12/22 buPROPion HCL [Bupropion HCl Sr] 150 mg PO TID 05/12/22 Furosemide [Lasix*] 40 mg PO DAILY #30 tab 05/20/22 Metoprolol Tartrate [Lopressor*] 12.5 mg PO BID 6AM 6PM #30 tab 05/20/22 Tamsulosin [Flomax*] 0.4 mg PO BID #60 cap 05/20/22 Ticagrelor [Brilinta*] 90 mg PO BID #60 05/20/22 lisinopriL [Prinivil*] 2.5 mg PO DAILY #15 tab 05/20/22 Aspirin Chewable [Aspirin Chewable*] 81 mg PO DAILY #30 tab.chew 06/20/22 Fluticasone/Salmeterol [Advair 250-50 Diskus] 1 each IH BID #1 kit 06/20/22 Furosemide [Lasix] 40 mg PO DAILY #30 tab 06/20/22 - Past Medical/Surgical History Diabetic: No -: Neuropathy -: MN and CAD with stents -: COPD -: GERD -: HTN -: HLD -: BPH -: cardiac catheterization with stent placement -: appy -: tonsilectomy Psychosocial/ Personal History: Patient is a . - Family History Father -: Heart disease, Hypertension - Social History Smoking Status: Former smoker Alcohol use: No CD- Drugs: No Caffeine use: Yes Place of Residence: Home Review of Systems Cardiovascular: Edema Integumentary: Rash Physical Examination - Vital Signs Temperature: 98.6 F Blood Pressure: 163/85 Pulse: 62 Respirations: 16 Pulse Ox (%): 100 - Physical Exam General: Alert, In no apparent distress HEENT: Atraumatic, PERRLA, EOMI, Sclerae nonicteric Neck: Supple, 2+ carotid pulse no bruit, No LAD, Without JVD or thyroid abnormality Respiratory: Clear to auscultation bilaterally, Normal air movement Cardiovascular: Regular rate/rhythm, Normal S1 S2 Gastrointestinal: Normal bowel sounds, No tenderness Musculoskeletal: No clubbing, No contractures Integumentary: Rash(es), Skin breakdown, Skin lesion, Tenderness/swelling, Erythema, Warmth Neurological: Normal speech, Normal strength at 5/5 x4 extr, Normal tone, Sensation intact, Normal affect - Studies Laboratory Data (last 24 hrs) 07/03/22 20:17: PT 13.5 H, INR 1.23, APTT 30.0 07/03/22 20:17: Sodium 138, Potassium 3.6, BUN 10, Creatinine 0.93, Glucose 100, Total Bilirubin 0.6, AST 14 L, ALT 22, Alkaline Phosphatase 102 07/03/22 20:17: WBC 10.30, Hgb 13.8, Hct 41.9, Plt Count 673 H Assessment and Plan - Problems (Diagnosis) (1) Bilateral cellulitis of lower leg Current Visit: Yes Status: Acute (2) COPD (chronic obstructive pulmonary disease) Current Visit: Yes Status: Chronic Qualifiers: COPD type: emphysema Emphysema type: centrilobular Qualified Code(s): J43.2 - Centrilobular emphysema (3) Coronary artery disease Current Visit: Yes Status: Chronic Qualifiers: Coronary Disease-Associated Artery/Lesion type: [place] artery [place] vs. transplanted heart: [place] heart Associated angina: without angina Qualified Code(s): I25.10 - Atherosclerotic heart disease of [place] coronary artery without angina pectoris (4) Hypertension Current Visit: Yes Status: Chronic Qualifiers: Hypertension type: primary hypertension Qualified Code(s): I10 - Essential (primary) hypertension (5) CHF (congestive heart failure) Current Visit: Yes Status: Acute Qualifiers: Heart failure type: diastolic Heart failure chronicity: acute on chronic Qualified Code(s): I50.33 - Acute on chronic diastolic (congestive) heart failure - Plan Will start patient on vancomycin for ulcers/cellulitus. Wound cultures ordered and wound healing consulted. Arterial ultrasound for bilateral lower extremities pending. Venous ultrasound negative. Lasix for bilateral lower extremity edema. Chest xray negative. Echo 2 months ago showed EF 50-55% with mild apical hypokinesis and mild tricuspid regurgitation. Patient denies history of diabetes. Will check A1c. Monitor and replete electrolytes per protocol. Reconcile and continue home medications. Lovenox for VTE prophylaxis. Full code. Discharge Plan: Home Plan to discharge in: 24 Hours - Advance Directives Does patient have a Living Will: No Does patient have a Durable POA for Healthcare: No - Code Status/Comfort Care Code Status Assessed: Yes Code Status: Full Code Physician Review: Patient Assessed, Agree with Above Assessment and Plan Critical Care: No Time Spent Managing Pts Care (In Minutes): 50
[2022-07-03] MEDS ORDERED: ONDANSETRON 4 MG/2 ML VIAL IV PRN (23:16)
[2022-07-03] MEDS ORDERED: FUROSEMIDE 20 MG/ 2ML VIAL IV ONE (23:16)
[2022-07-03] MEDS ORDERED: VANCOMYCIN 1 GM in NA CHLORIDE 0.9% 250 ML IVPB SCH (23:16)
[2022-07-04 00:46] LABS: Specific Gravity 1.029 (1.005-1.030); Urine Bacteria None Seen /HPF (<20); Urine Bilirubin NEGATIVE (Negative); Urine Blood 2+ (Negative); Urine Clarity Clear (Clear); Urine Color Yellow (Yellow); Urine Glucose NEGATIVE (Negative); Urine Mucus 1+ /HPF (None Seen); Urine Protein 3+ (Negative); Urine Urobilinogen 2+ (Normal)
[2022-07-04] MEDS ORDERED: VANCOMYCIN 1.25 GM in NA CHLORIDE 0.9% 250 ML IVPB SCH (01:00)
[2022-07-04] MEDS: HYDROCODONE/APAP 5/325 MG TAB PO PRN ×2 (01:06→20:30)
[2022-07-04] MEDS ORDERED: NA CHLORIDE 0.9% 250 ML ONE ×2 (01:16→08:58)
[2022-07-04] MEDS ORDERED: VANCOMYCIN 1 GM/VIAL ONE (01:16)
[2022-07-04] MEDS ORDERED: VANCOMYCIN 500 MG/VIAL ONE (01:17)
[2022-07-04 01:44] VITALS: BMI 23.2
[2022-07-04 06:27] LABS: Absolute Lymphocytes (CBC) 1.9 K/uL (0.7-4.9); Hematocrit 36.4 % (39.6-49.0); Lymphocytes % 19.5 % (15.3-44.8); MCV 89.9 fL (80-100); MPV 6.5 fL (7.6-11.3); RBC Red Blood Cell Count 4.05 M/uL (4.33-5.43)
[2022-07-04 06:51] LABS: Magnesium 1.9 mg/dL (1.6-2.4); Phosphorus 4.1 mg/dL (2.5-4.9); Potassium 3.4 mmol/L (3.5-5.1); Thyroid Stimulating Hormone 2.19 uIU/mL (0.358-3.740)
--- NOTE | 2022-07-04 07:18 | RAD REPORT ---
EXAM DESCRIPTION: US - Lower Extremity Arterial Bilat - 07/04/2022 5:41 am CLINICAL HISTORY: ulcers bilateral ankles, suspected PAD, leg pain COMPARISON: None. TECHNIQUE: Doppler evaluation of the bilateral lower extremity arterial tree performed Waveforms and velocity values were obtained along the length of each lower extremity. Visual inspection of the low er extremity arterial tree performed. FINDINGS: Calcified plaquing changes are present along the length of each lower extremity arterial t ree. The right lower extremity shows triphasic waveform pattern in the common femoral, femoral and poplite al arteries. Waveform pattern transitions to monophasic at the dorsalis pedis and posterior tibial ar teries on the right. There is no occlusion or focal flow restricting lesion identifiable. The left lower extremity arterial tree shows a monophasic waveform pattern from groin to ankle. Left posterior tibial artery was difficult to visualize due to the overlying skin ulcerations. Calcified p laquing is more prominent on the left. A focal occlusion or flow restricting lesion was not identifia ble. Left lower extremity peak velocity values are generally dampened when compared with the right. IMPRESSION: Significant bilateral lower extremity peripheral arterial disease is present, left great er than right, without any focal flow restricting lesion or occlusion. Presence of a monophasic waveform pattern along the entire length of the left lower extremity would i ndicate significant vascular disease in the left iliac vasculature.
--- NOTE | 2022-07-04 07:27 | RAD REPORT ---
EXAM DESCRIPTION: RAD - Chest Single View - 07/03/2022 10:38 pm CLINICAL HISTORY: COPD COMPARISON: Portable chest 06/19/2022, CT chest 06/19/2022 TECHNIQUE: AP portable chest image was obtained 07/03/2022 10:38 pm . FINDINGS: Eft interstitial markings in the right base are increased relative to the left. Bibasilar interstitial opacification overall has improved from the May examination. Heart size is normal a nd decreased from prior imaging. Central vasculature has improved. No pneumothorax. Lung base atelect asis and small pleural effusions are suspected. No acute bony abnormality seen. No acute aortic findi ngs suspected. IMPRESSION: Asymmetrically prominent lung markings in the right base substantially improved from [place] or imaging. Bibasilar interstitial opacification significantly improved from comparison with heart size and centr al vasculature improved as well. Findings likely represent near complete resolution of pulmonary edema seen on the June 19 examina tion. Residual or recurrent right base infiltrate is not entirely excluded.
[2022-07-04] MEDS ORDERED: INFLUENZA VACCINE (for 6+ mo) 0.5 ML DOSE IMVAC ONE (08:00)
--- NOTE | 2022-07-04 08:02 | EKG ---
Test Date: 2022-07-03 Test Time: 20:59:00 Assistant Chief Engineer: MEASUREMENT RESULTS: Intervals: Rate: 57 HI: 224 QRSD: 102 QT: 456 QTc: 443 [place]: P: 65 HI: 224 QRS: -69 T: -60 INTERPRETIVE STATEMENTS: Sinus bradycardia with 1st degree AV block Left anterior fascicular block Lateral infarct, age undetermined Inferior infarct, age undetermined T wave abnormality, consider anterior ischemia Abnormal ECG Compared to ECG 06/19/2022 11:53:24 T-wave abnormality now present Possible ischemia now present Myocardial infarct finding still present Electronically Signed On 07-04-22 08:01:37 JEWELRY MOLD MAKER by David Dallas
[2022-07-04] MEDS: KCL 20 MEQ/100 mL IVPB 20 MEQ/100 ML BAG IV SCH ×3 (08:47→12:00)
[2022-07-04] MEDS: ENOXAPARIN 40 MG/0.4 ML SQ SCH (08:47)
[2022-07-04] MEDS ORDERED: FENTANYL CITR 100 MCG/2 ML ONE ×2 (09:18→15:00)
[2022-07-04] MEDS ORDERED: MIDAZOLAM HCL 2 MG/2 ML INJ ONE (09:18)
[2022-07-04] MEDS ORDERED: LIDOCAINE 2% MPF 5 ML VIAL ONE ×2 (09:18→15:00)
[2022-07-04] MEDS ORDERED: ONDANSETRON 4 MG/2 ML VIAL ONE ×3 (09:18→16:53)
[2022-07-04] MEDS ORDERED: propofoL 200 MG/20 ML VIAL IV ONE ×2 (09:18→15:00)
--- NOTE | 2022-07-04 09:20 | P.CNS ---
Date of Consult: 07/04/22 Reason for consult: Bilateral lower extremity wound and rash History of present illness: Patient is a 72-year-old gentleman comes in with 3- week history of bilateral lower extremity rash and nonhealing wounds. Patient had stents put in 3 weeks ago. Patient denies any fever, chills, chest pain, cough, headaches or dizziness. Review of systems: Otherwise unremarkable Past medical history: PA, coronary artery disease, COPD, GERD, BPH Past surgical history: Recent cath, Appy, and tonsillectomy Allergies: Penicillin and sulfa Social history: Patient currently does not smoke or drink alcohol Family history: Contributory Vital signs: Stable, afebrile Physical exam: Awake alert oriented x3 Head and neck exam: Neck masses Chest: Clear Heart: S1-S2 Abdomen: Soft Extremity: Diminished dorsalis pedis and posterior tibial pulses, left side worse than right side. Patient has punctate pustules both legs. Patient has 2 ulcers on his ankles. They are approximately 3 cm in diameter with necrotic eschar. There is redness around these wounds. Neuro: Nonfocal Diagnostic data: Laboratory data reviewed. White count is normal. Arterial and venous Doppler reviewed. Patient has significant vascular disease on the left side. Assessment: Nonhealing wound both ankles with rash of uncertain etiology. The rash could be result of vasculitis Plan/recommendation: Discussed the case with Dr. Carter. Proceed with debridement of both ankle wounds biopsy of the rash lesions. Patient understands risks, benefits and alternatives and agrees to procedure. Continue the anticoagulation as patient has recently a stent placed. CC:
--- NOTE | 2022-07-04 12:13 | P.PN ---
Subjective Date of Service: 07/04/22 Chief Complaint: Cellulitus BLE Patient has no new complaint. No fever. He denies any loss of appetite or nausea or vomiting. He denies any diarrhea. He denies any leg pain. Physical Examination - Vital Signs Temperature: 98.9 F Blood Pressure: 133/72 Pulse: 63 Respirations: 16 Pulse Ox (%): 93 - Studies Laboratory Data (last 24 hrs) 07/03/22 20:17: PT 13.5 H, INR 1.23, APTT 30.0 07/03/22 20:17: Sodium 138, Potassium 3.6, BUN 10, Creatinine 0.93, Glucose 100, Total Bilirubin 0.6, AST 14 L, ALT 22, Alkaline Phosphatase 102 07/03/22 20:17: WBC 10.30, Hgb 13.8, Hct 41.9, Plt Count 673 H Assessment And Plan - Current Problems (Diagnosis) (1) Rash and nonspecific skin eruption Current Visit: Yes Status: Acute (2) Peripheral vascular disease Current Visit: Yes Status: Acute (3) Peripheral vascular disease of lower extremity with ulceration Current Visit: Yes Status: Acute (4) Coronary artery disease Current Visit: Yes Status: Chronic Qualifiers: Coronary Disease-Associated Artery/Lesion type: [place] artery [place] vs. transplanted heart: [place] heart Associated angina: without angina Qualified Code(s): I25.10 - Atherosclerotic heart disease of [place] coronary artery without angina pectoris (5) Hypertension Current Visit: Yes Status: Chronic Qualifiers: Hypertension type: primary hypertension Qualified Code(s): I10 - Essential (primary) hypertension - Plan Physical Exam General: Alert, In no apparent distress Neck: Supple, no elevated JVD Respiratory: Clear to auscultation bilaterally, Normal air movement Cardiovascular: Regular rate/rhythm, Normal S1 S2 Gastrointestinal: Normal bowel sounds, No tenderness Musculoskeletal: No clubbing, No contractures Integumentary: Rashes, erythematous papules with pustules, ulcer left lateral ankle, ulcer right posterior distal leg both with eschar. Neurological: No focal motor deficit. Plan: Differential diagnosis for rash-vasculitis versus inflammatory disease. I doubt the rashes of infectious origin. General surgery Dr. Lee consulted who is planning debridement and biopsy. Continue antibiotics for now. Follow blood cultures and deep tissue wound culture. Wound care consult. Pain management as needed. Hold aspirin and Brilinta for procedure today and resume after procedure. Continue home antihypertensives. Physician Review: Patient Assessed, Agree with Above Assessment and Plan
[2022-07-04] MEDS ORDERED: Ringers Lactate 1,000 ML IV ONE (15:10)
[2022-07-04] MEDS: VANCOMYCIN 1 GM in NA CHLORIDE 0.9% 250 ML IVPB SCH (15:20)
[2022-07-04] MEDS ORDERED: BUPIVACAINE 0.5% PF 10 ML VIAL ONE ×2 (15:53→16:48)
[2022-07-04] MEDS ORDERED: COLLAGENASE 30 GM OINTMENT TOP ONE (16:20)
[2022-07-04] MEDS ORDERED: GLYCOPYRROLATE 0.2 MG/ML SYR ONE (16:42)
[2022-07-04] MEDS ORDERED: KETOROLAC 30 MG/ML INJ ONE (16:48)
--- NOTE | 2022-07-04 16:59 | P.OP ---
Date of Service: 07/04/22 Preop diagnosis: Bilateral lower leg wounds and rash Postop diagnosis: Same Procedure performed: Excisional debridement of right medial lower leg wound 3 x 4 cm to subcutaneous tissue, excisional debridement of left lateral ankle wound 3 x 3 cm to subcutaneous tissue and punch biopsy of right leg rash x3 Surgeon: Raphael Lee MD Turbinated Bone Grinder: None Estimated blood loss: Minimal Specimen: Punch biopsy x3 and excisional debridement of both lower extremities Findings: As above Anesthesia: General Complications: None Drains: None Fluids and blood products: Nonapplicable Disposition: Recovery room Operative note: Patient brought to the OR and placed in supine position. General anesthesia begun. Patient prepped and draped in usual sterile fashion. 0.5% infiltrated locally for postop pain control. Then 15 blade used to debride a necrotic eschar in the right lower leg medially 3 x 4 cm to subcutaneous tissue and left lateral ankle 3 x 3 cm to subcutaneous tissue. Curette utilized as needed. Bleeding controlled with cautery. And then punch biopsy was performed in the right lower leg rash region. 3 mm punch biopsy was used to take 3 samples. Bleeding controlled cautery. Santyl dressing applied. Sterile dressing applied. Patient awakened taken to recovery room in good general condition. CC:
[2022-07-04] MEDS ORDERED: LABETALOL 20 MG/4ML SYRINGE IV ONE (17:04)
[2022-07-04] MEDS: HYDROMORPHONE HCL 1 MG/ML INJ ONE ×2 (17:41→17:51)
[2022-07-04 17:47] VITALS: O2SAT 99
[2022-07-05] MEDS: VANCOMYCIN 1 GM in NA CHLORIDE 0.9% 250 ML IVPB SCH (03:03)
[2022-07-05] MEDS: HYDROCODONE/APAP 5/325 MG TAB PO PRN ×2 (05:34→10:07)
[2022-07-05] MEDS: ENOXAPARIN 40 MG/0.4 ML SQ SCH (08:20)
[2022-07-05 08:34] VITALS: BP 134/72; TEMP 98.7
--- NOTE | 2022-07-05 08:38 | P.PN ---
Date of Service: 07/05/22 Subjective: Minimal pain at wound site. Objective: Vitals stable, afebrile Dressing is clean dry intact Assessment: Status post excisional debridement of bilateral lower extremity wound and biopsy of a rash Plan: Patient cleared for discharge. Plan of care discussed with Dr. Crater and patient. Discharge instructions given. Patient will follow up with me in the wound healing center in 2 weeks. Home health if needed. CC:
--- NOTE | 2022-07-05 08:56 | P.DS ---
Admission Date: 07/03/22 Discharge Date: 07/05/22 Disposition: ROUTINE DISCHARGE Discharge Condition: FAIR Reason for Admission: Cellulitus BLE - Problems (1) Rash and nonspecific skin eruption Current Visit: Yes Status: Acute (2) Peripheral vascular disease Current Visit: Yes Status: Acute (3) Peripheral vascular disease of lower extremity with ulceration Current Visit: Yes Status: Acute (4) Coronary artery disease Current Visit: Yes Status: Chronic Qualifiers: Coronary Disease-Associated Artery/Lesion type: [place] artery [place] vs. transplanted heart: [place] heart Associated angina: without angina Qualified Code(s): I25.10 - Atherosclerotic heart disease of [place] coronary artery without angina pectoris (5) Hypertension Current Visit: Yes Status: Chronic Qualifiers: Hypertension type: primary hypertension Qualified Code(s): I10 - Essential (primary) hypertension Brief History of Present Illness: Patient is a 72 year old male with past medical history of CAD (recent SD s/p 3 stents), chronic diastolic CHF, COPD, and hypertension who presented to the ED with complaints of rash on bilateral lower extremities. He also reports worsening in lower extremity edema. States he first noticed some wounds on the back of his legs when he was admitted 3 weeks ago and they have slowly worsened. There are 1 inch diameter circular ulcer/plaque-like lesions on his right medial ankle and left lateral ankle with surrounding erythema/cellulitus. Bilateral shins with erythematous papular rash. He reported that it is painful but does not itch. His labs are unremarkable. Venous US extremities negative. Patient admitted for further management. Hospital Course: Patient placed under observation on the medical floor and started on antibiotics. Differential diagnosis for his leg rash include vasculitis versus inflammatory disease. I doubt the rashes are of infectious origin. General surgery Dr. Lee consulted who performed punch biopsy and sharp knife debridement of the ulcers at both ankles. Blood culture yielded no growth. Wound culture is pending, gram stain shows no organisms or WBCs Patient is discharged with Levaquin as we wait for biopsy results. He will follow with Dr. Lee within 2-week. His other home medications are resumed on discharge. Vital Signs/Physical Exam: Temp Pulse Resp BP Pulse Ox 98.7 F 58 14 134/72 92 07/05/22 08:00 07/05/22 08:00 07/05/22 08:00 07/05/22 08:00 07/05/22 08:00 General: Alert, In no apparent distress, Oriented x3 Neck: Supple, JVD not distended Respiratory: Clear to auscultation bilaterally, Normal air movement Cardiovascular: Regular rate/rhythm, Normal S1 S2, Edema (Trace bilateral lower extremity edema) Gastrointestinal: Soft and benign, Non-distended, No tenderness Musculoskeletal: Other (Bilateral legs wrapped with Cliff wrap.) Integumentary: No cyanosis Neurological: Normal strength at 5/5 x4 extr Laboratory Data at Discharge: WBC 9.50 K/uL (4.3-10.9) 07/04/22 06:18 Hgb 12.3 g/dL (13.6-17.9) L D 07/04/22 06:18 Hct 36.4 % (39.6-49.0) L 07/04/22 06:18 Plt Count 617 K/uL (152-406) H 07/04/22 06:18 PT 13.5 SECONDS (9.5-12.5) H 07/03/22 20:17 INR 1.23 07/03/22 20:17 APTT 30.0 SECONDS (24.3-36.9) 07/03/22 20:17 Sodium 137 mmol/L (136-145) 07/04/22 06:18 Potassium 3.4 mmol/L (3.5-5.1) L 07/04/22 06:18 BUN 10 mg/dL (7-18) 07/04/22 06:18 Creatinine 0.80 mg/dL (0.70-1.30) 07/04/22 06:18 Glucose 105 mg/dL (74-106) 07/04/22 06:18 Phosphorus 4.1 mg/dL (2.5-4.9) 07/04/22 06:18 Magnesium 1.9 mg/dL (1.6-2.4) 07/04/22 06:18 Total Bilirubin 0.6 mg/dL (0.2-1.0) 07/03/22 20:17 AST 14 U/L (15-37) L 07/03/22 20:17 ALT 22 U/L (16-61) 07/03/22 20:17 Alkaline Phosphatase 102 U/L (45-117) 07/03/22 20:17 Triglycerides 89 mg/dL (<150) 07/04/22 06:18 Cholesterol 114 mg/dL (<200) 07/04/22 06:18 HDL Cholesterol 36 mg/dL (40-60) L 07/04/22 06:18 Cholesterol/HDL Ratio 3.17 07/04/22 06:18 Home Medications: Atorvastatin Calcium 40 mg PO DAILY 05/12/22 Cholecalciferol (Vitamin D3) [Vitamin D3] 1,000 unit PO DAILY 05/12/22 Cyanocobalamin [Vitamin B-12*] 1,000 mcg PO DAILY 05/12/22 Cyclobenzaprine HCl 0.5 tab PO TID PRN 05/12/22 Cyproheptadine HCl 4 mg PO BEDTIME 05/12/22 Diclofenac Sodium [Voltaren] 75 mg PO BID PRN 05/12/22 Duloxetine HCl 20 mg PO DAILY 05/12/22 Finasteride 5 mg PO DAILY 05/12/22 Gabapentin 2 cap PO TID 05/12/22 Omeprazole 20 mg PO BID 05/12/22 Trazodone HCl 0.5 tab PO BEDTIME 05/12/22 buPROPion HCL [Bupropion HCl Sr] 150 mg PO TID 05/12/22 Furosemide [Lasix*] 40 mg PO DAILY #30 tab 05/20/22 Metoprolol Tartrate [Lopressor*] 12.5 mg PO BID 6AM 6PM #30 tab 05/20/22 Tamsulosin [Flomax*] 0.4 mg PO BID #60 cap 05/20/22 Ticagrelor [Brilinta*] 90 mg PO BID #60 05/20/22 lisinopriL [Prinivil*] 2.5 mg PO DAILY #15 tab 05/20/22 Aspirin Chewable [Aspirin Chewable*] 81 mg PO DAILY #30 tab.chew 06/20/22 Fluticasone/Salmeterol [Advair 250-50 Diskus] 1 each IH BID #1 kit 06/20/22 Furosemide [Lasix] 40 mg PO DAILY #30 tab 06/20/22 levoFLOXacin [Levaquin] 750 mg PO DAILY #7 tab 07/05/22 New Medications: levoFLOXacin [Levaquin] 750 mg PO DAILY #7 tab Physician Discharge Instructions: Santyl to wound as directed Home health as needed Diet: AHA Activity: No lifting more than 10 lbs Followup: Raphael Lee MD [ACTIVE - CAN ADMIT] - 07/18/22 (Wound healing center in my clinic)
[2022-07-05] MEDS ORDERED: INFLUENZA VACCINE (for 6+ mo) 0.5 ML DOSE IMVAC ONE (14:00)
== END 2022-07-05 13:44 | disposition home or self-care (01) ==
LOC: ER 19:08 → ERHOLD 22:07 → 2ND 22:29
PROVIDERS: ADMIT Internal Medicine; ATTEND Internal Medicine
PROC: 0JBP0ZZ Excision of Left Lower Leg Subcutaneous Tissue and Fascia, Open Approach (ICD-10-PCS; 2022-07-04)
PROC: 0JBN3ZX Excision of Right Lower Leg Subcutaneous Tissue and Fascia, Percutaneous Approach, Diagnostic (ICD-10-PCS; 2022-07-04)
PROC: 0JBL0ZZ Excision of Right Upper Leg Subcutaneous Tissue and Fascia, Open Approach (ICD-10-PCS; principal; 2022-07-04 09:30)
DX: L03.116 Cellulitis of left lower limb (principal); L03.115 Cellulitis of right lower limb; I96 Gangrene, not elsewhere classified; R21 Rash and other nonspecific skin eruption; J43.2 Centrilobular emphysema; I10 Essential (primary) hypertension; I50.33 Acute on chronic diastolic (congestive) heart failure; I25.10 Atherosclerotic heart disease of native coronary artery without angina pectoris; I73.9 Peripheral vascular disease, unspecified; Z20.822 Contact with and (suspected) exposure to COVID-19; Z23 Encounter for immunization
CPT/HCPCS: 93005; 87040 ×2; 87088; 87070; 85025 ×2; 81001; 87086; 80048; 36415 ×2; 83735; 87205; 84100; 85610; 80061; 83605; 88304; 88305; 85730; 85652; 84443; 80202; 83036; 80053; 86140; 71045; 90471; 93925; 93970; 99285; 87811; 11042 ×2; 11104; 11105 ×2; J2704; J1940; Q2035; J3590; J2001; J3480 ×2; J1650 ×2; J3010; J3370 ×3; J1170; J7120; J7050 ×4; J2405 ×2; J2250

== ENCOUNTER 2022-07-10 12:28 | Emergency (ER) | payer OTHER ==
--- OUTSIDE RECORDS SUMMARY | 2022-07-10 12:34 | XMS REPORT | Continuity of Care Document ---
:1950 [address] [facility] t Address [address] [place] [address] Care Team Providers Name Role Phone DAVE OLIVER Attending Clinician Unavailable DAVE OLIVER Admitting Clinician Unavailable Payers Payer Name Policy Type Policy Number Effective Date Expiration Date S ouraby [employer] [id number] 2022 [employer] 00:00:00 Problems This patient has no known problems. Allergies, Adverse Reactions, Alerts This patient has no known allergies or adverse reactions. Medications This patient has no known medications. Procedures This patient has no known procedures. Encounters Start End Encounter Admission Attending Care Care Encounter Source Date/Time Date/Time Type Type Clinicians Facility Department ID 2022-06-06 Outpatient [facility] [id number] [place] 07:28:26 [id number] [facility] 2022-05-31 Outpatient [facility] [id number] [place] 14:16:27 [id number] [facility] 2022-05-29 2022-06-03 [facility]patient [facility] [id number] [facility] 07:21:00 16:44:00 DAVE Results This patient has no known results.
--- NOTE | 2022-07-10 14:19 | RAD REPORT ---
EXAM DESCRIPTION: US - Lower Extremity Arterial Bilat - 07/10/2022 2:10 pm CLINICAL HISTORY: Leg pain/ulceration COMPARISON: July 04, 2022 FINDINGS: Right common femoral, superficial femoral and popliteal arteries demonstrate triphasic waveforms The right posterior tibial and dorsalis pedis arteries demonstrate triphasic waveforms The left common femoral, superficial femoral and popliteal arteries demonstrate monophasic waveforms diminished in amplitude The left posterior tibial and dorsalis pedis arteries demonstrate monophasic waveforms diminished in amplitude Grayscale, color and spectral analysis performed on all vessels IMPRESSION: The patient probably has significant left iliac arterial disease
[2022-07-10 14:54] LABS: Absolute Lymphocytes (CBC) 1.1 K/uL (0.7-4.9); Hematocrit 39.5 % (39.6-49.0); Lymphocytes % 13.4 % (15.3-44.8); MCV 89.8 fL (80-100); MPV 6.6 fL (7.6-11.3); RBC Red Blood Cell Count 4.39 M/uL (4.33-5.43)
[2022-07-10 15:11] LABS: Albumin 2.5 g/dL (3.4-5.0); Bilirubin Total 0.5 mg/dL (0.2-1.0); Potassium 3.4 mmol/L (3.5-5.1); Protein, Total 5.9 g/dL (6.4-8.2)
--- NOTE | 2022-07-10 15:55 | EDPHYS ---
Physician Documentation [facility] Name: Navjot Meneses Age: 72 yrs Sex: Male : 1950 Arrival Date: 07/10/2022 Time: 12:34 Bed 20 Private MD: ED Physician Giovanni Hicks HPI: 07/10 14:12 This 72 yrs old Male presents to ER via Ambulatory with complaints of Wound Infection. snw 14:12 Patient presents to ED for recheck of: peripheral vascular disease, ulcerations to snw bilateral ankles, petechial rash . Previous treatment: the care was rendered at 07/05/22 discharged from hospital with f/u in 2 weeks for wound care/check, Outpatient prescription(s): The patient was given prescription(s) for fluoquinolone, Levaquin. Progress: The patient reports no change in. It is unknown whether or not the patient has had similar symptoms in the past. as noted. Historical: - Allergies: 12:42 PENICILLINS; aa5 12:42 Sulfa (Sulfonamide Antibiotics); aa5 - PMHx: 12:42 Myocardial infarction; neuropathy; aa5 - PSHx: 12:42 Appendectomy; Heart Stents; Stented artery; Tonsillectomy; aa5 - Immunization history:: Adult Immunizations unknown. - Social history:: Smoking status: Patient denies any tobacco usage or history of. ROS: 14:11 Constitutional: Negative for fever, chills, and weight loss, Eyes: Negative for injury, snw pain, redness, and discharge, ENT: Negative for injury, pain, and discharge, Neck: Negative for injury, pain, and swelling, Cardiovascular: Negative for chest pain, palpitations, and edema, Respiratory: Negative for shortness of breath, cough, wheezing, and pleuritic chest pain, Abdomen/GI: Negative for abdominal pain, nausea, vomiting, diarrhea, and constipation, Back: Negative for injury and pain, : Negative for injury, bleeding, discharge, and swelling, MS/Extremity: Negative for injury and deformity, Neuro: Negative for headache, weakness, numbness, tingling, and seizure, Psych: Negative for depression, anxiety, suicide ideation, homicidal ideation, and hallucinations. 14:11 Skin: Positive for rash and wounds are worse. Exam: 14:07 Constitutional: This is a well developed, well nourished patient who is awake, alert, snw and in no acute distress. Head/Face: Normocephalic, atraumatic. Eyes: Pupils equal round and reactive to light, extra-ocular motions intact. Lids and lashes normal. Conjunctiva and sclera are non-icteric and not injected. Cornea within normal limits. Periorbital areas with no swelling, redness, or edema. ENT: Nares patent. No nasal discharge, no septal abnormalities noted. Tympanic membranes are normal and external auditory canals are clear. Oropharynx with no redness, swelling, or masses, exudates, or evidence of obstruction, uvula midline. Mucous membranes moist. Neck: Trachea midline, no thyromegaly or masses palpated, and no cervical lymphadenopathy. Supple, full range of motion without nuchal rigidity, or vertebral point tenderness. No Meningismus. Chest/axilla: Normal chest wall appearance and motion. Nontender with no deformity. No lesions are appreciated. Cardiovascular: Regular rate and rhythm with a normal S1 and S2. No gallops, murmurs, or rubs. Normal PMI, no JVD. No pulse deficits. Respiratory: Lungs have equal breath sounds bilaterally, clear to auscultation and percussion. No rales, rhonchi or wheezes noted. No increased work of breathing, no retractions or nasal flaring. Abdomen/GI: Soft, non-tender, with normal bowel sounds. No distension or tympany. No guarding or rebound. No evidence of tenderness throughout. Back: No spinal tenderness. No costovertebral tenderness. Full range of motion. Neuro: Awake and alert, GCS 15, oriented to person, place, time, and situation. Cranial nerves II-XII grossly intact. Motor strength 5/5 in all extremities. Sensory grossly intact. Cerebellar exam normal. Normal gait. Psych: Awake, alert, with orientation to person, place and time. Behavior, mood, and affect are within normal limits. 14:07 Skin: Appearance: normal except for affected area, lesion(s), bilateral lower legs with petechial rash, one with mild necrotic scabbing to right medial leg, ulceration to left lateral ankle with granular center, ulceration to right medial ankle with granular center.. 14:11 Musculoskeletal/extremity: Circulation is intact in all extremities. the right leg and snw left leg decreased sensation, mild edema to bilateral feet. Vital Signs: 12:42 BP 148 / 87; Pulse 65; Resp 16 S; Temp 98.1(O); Pulse Ox 100% on R/A; Weight 73.03 kg aa5 (R); Height 5 ft. 7 in. (170.18 cm) (R); 14:56 BP 155 / 85; Pulse 61; Resp 18; Pulse Ox 98% on R/A; ph 16:00 BP 141 / 89; Pulse 61; Resp 18; Pulse Ox 98% on R/A; ph 16:59 BP 152 / 78; Pulse 64; Resp 18; Temp 97.8; Pulse Ox 98% on R/A; ph 12:42 Body Mass Index 25.22 (73.03 kg, 170.18 cm) aa5 MDM: 12:55 Patient medically screened. rt 15:55 Data reviewed: vital signs, nurses notes. Data interpreted: Pulse oximetry: on room air snw is 98 %. Interpretation: normal. Counseling: I had a detailed discussion with the patient and/or guardian regarding: the historical points, exam findings, and any diagnostic results supporting the discharge/admit diagnosis, lab results, the need for outpatient follow up, to return to the emergency department if symptoms worsen or persist or if there are any questions or concerns that arise at home. Special discussion: I have referred the patient to see his PCP for further evaluation of high blood pressure. Based on the history and exam findings, there is no indication for further emergent testing or inpatient evaluation. I discussed with the patient/guardian the need to see the general surgeon for further evaluation of the symptoms. I discussed with the patient/guardian the need to see the primary care provider for further evaluation of the symptoms. 07/10 13:38 Order name: CBC with Diff; Complete Time: 15:30 snw 07/10 13:38 Order name: CMP; Complete Time: 15:22 snw 07/10 13:38 Order name: US LE Arterial Bilateral; Complete Time: 14:22 snw 07/10 13:38 Order name: Wound Care; Complete Time: 16:59 snw 07/10 15:31 Order name: Wound dressing; Complete Time: 16:59 snw Administered Medications: No medications were administered Disposition: 07/11 12:31 Co-signature as Attending Physician, Giovanni Hicks MD I agree with the assessment and rt plan of care. Disposition Summary: 07/10/22 15:54 Discharge Ordered Location: Home snw Condition: Stable snw Diagnosis - Peripheral vascular disease, unspecified - bilateral ankle ulcerations snw Followup: snw - With: Emergency Department - When: As needed - Reason: Worsening of condition Followup: snw - With: Private Physician - When: 5 - 6 days - Reason: Recheck today's complaints, Continuance of care, Re-evaluation by your physician Discharge Instructions: - Discharge Summary Sheet snw - Peripheral Vascular Disease, [id number] snw - Venous Ulcer, [id number] snw Forms: - Medication Reconciliation Form snw - Thank You Letter snw - Antibiotic Education snw - Prescription Opioid Use snw Signatures: Dispatcher [employer] EDMS Mis Flowers, HOUSE CARPENTER HELPER-C HOUSE CARPENTER HELPER-Csnw Josselin Carreno, RN RN aa5 Prachi Triplett RN RN ph Giovanni Hicks MD MD rt
--- NOTE | 2022-07-10 15:55 | ER ---
Nurse's Notes [facility] Name: Navjot Meneses Age: 72 yrs Sex: Male : 1950 Arrival Date: 07/10/2022 Time: 12:34 Bed 20 Private MD: Diagnosis: Peripheral vascular disease, unspecified-bilateral ankle ulcerations Presentation: 07/10 12:42 Chief complaint: Patient states: "I have wounds on both my feet and I think they are aa5 getting worse". Pt reports he is taking unknown antibiotics and has been applying mupirocin ointment. Reports he can't get an appointment to follow-up until September 2022. 12:42 Coronavirus screen: At this time, the client does not indicate any symptoms associated aa5 with coronavirus-19. Ebola Screen: Patient denies travel to an Ebola-affected area in the 21 days before illness onset. Initial Sepsis Screen: Does the patient meet any 2 criteria? No. Patient's initial sepsis screen is negative. Does the patient have a suspected source of infection? No. Patient's initial sepsis screen is negative. Risk Assessment: Do you want to hurt yourself or someone else? Patient reports no desire to harm self or others. Onset of symptoms was 2021. 12:42 Method Of Arrival: Ambulatory aa5 12:42 Acuity: CHRIS 3 aa5 Historical: - Allergies: 12:42 PENICILLINS; aa5 12:42 Sulfa (Sulfonamide Antibiotics); aa5 - PMHx: 12:42 Myocardial infarction; neuropathy; aa5 - PSHx: 12:42 Appendectomy; Heart Stents; Stented artery; Tonsillectomy; aa5 - Immunization history:: Adult Immunizations unknown. - Social history:: Smoking status: Patient denies any tobacco usage or history of. Screenin:00 [facility] ED Fall Risk Assessment (Adult) History of falling in the last 3 months, ph including since admission No falls in past 3 months (0 pts) Confusion or Disorientation No (0 pts) Intoxicated or Sedated No (0 pts) Impaired Gait Yes (1 pt) Mobility Assist Device Used Yes (1 pt) Altered Elimination No (0 pt) Score/Fall Risk Level 0 - 2 = Low Risk Oriented to surroundings, Maintained a safe environment. Abuse screen: Denies threats or abuse. Denies injuries from another. Nutritional screening: No deficits noted. Tuberculosis screening: No symptoms or risk factors identified. Assessment: 14:53 General: Appears in no apparent distress. Behavior is calm, cooperative, appropriate ph for age, Denies fever, feeling ill. Pain: Complains of pain in left leg and right leg. Neuro: Level of Consciousness is awake, alert, obeys commands, Oriented to person, place, time, situation. Cardiovascular: Capillary refill < 3 seconds in bilateral fingers Patient's skin is warm and dry. Respiratory: Airway is patent Respiratory effort is even, unlabored. Derm: Skin is pink, warm \\T\\ dry. Derm: Wound noted left medial ankle. Derm: Wound noted right ankle Other: both wounds appear to be ulcers w/ top layers of skin absent, no redness or drainage noted. 16:59 Reassessment: Patient appears in no apparent distress at this time. Patient and/or ph family updated on plan of care and expected duration. Pain level reassessed. Patient is alert, oriented x 3, equal unlabored respirations, skin warm/dry/pink. dressings placed to bilateral lower legs, pt d/c home. Vital Signs: 12:42 BP 148 / 87; Pulse 65; Resp 16 S; Temp 98.1(O); Pulse Ox 100% on R/A; Weight 73.03 kg aa5 (R); Height 5 ft. 7 in. (170.18 cm) (R); 14:56 BP 155 / 85; Pulse 61; Resp 18; Pulse Ox 98% on R/A; ph 16:00 BP 141 / 89; Pulse 61; Resp 18; Pulse Ox 98% on R/A; ph 16:59 BP 152 / 78; Pulse 64; Resp 18; Temp 97.8; Pulse Ox 98% on R/A; ph 12:42 Body Mass Index 25.22 (73.03 kg, 170.18 cm) aa5 ED Course: 12:34 Patient arrived in ED. mr 12:42 Arm band placed on Patient placed in an exam room, on a stretcher. aa5 12:43 Giovanni Hicks MD is Attending Physician. rt 12:49 Triage completed. aa5 13:00 Prachi Triplett, VETO is Primary Nurse. ph 13:05 Mis Flowers FNP-C is PHCP. snw 14:12 US LE Arterial Bilateral In Process Unspecified. EDMS 14:52 Initial lab(s) drawn, by me, sent to lab. Inserted saline lock: 20 gauge in right ph antecubital area, using aseptic technique. Blood collected. 14:53 Patient has correct armband on for positive identification. Bed in low position. Call ph light in reach. Side rails up X 1. Pulse ox on. NIBP on. Door closed. Noise minimized. Warm blanket given. 15:02 CBC with Diff Sent. ph 15:02 CMP Sent. ph 17:00 No provider procedures requiring assistance completed. IV discontinued, intact, ph bleeding controlled, No redness/swelling at site. Pressure dressing applied. Wound care: to venous ulcers located on right ankle was cleaned with Hibiclens, dressed with 4X4s, Kerlix. Wound care: to venous ulcer located on left lateral ankle was cleaned with Hibiclens, dressed with 4X4s, Kerlix. Administered Medications: No medications were administered Medication: 14:56 VIS not applicable for this client. ph Outcome: 15:54 Discharge ordered by . snw 17:01 Discharged to home ambulatory. ph 17:01 Condition: good 17:01 Discharge instructions given to patient, Instructed on discharge instructions, follow up and referral plans. Demonstrated understanding of instructions, follow-up care. 17:01 Patient left the ED. ph Signatures: Dispatcher [employer] EDMT Mis Flowers, FRANCISC ASSEMBLER CHASSIS-Mayte DossGladys mr CarrenoJosselin, RN RN aa5 Prachi Triplett RN RN ph Giovanni Hicks MD MD rt
[2022-07-10 17:20] VITALS: O2SAT 98
[2022-07-10 17:27] VITALS: BP 152/78; TEMP 97.8
== END 2022-07-10 17:01 | disposition home or self-care (01) ==
LOC: ER 12:28
DX: I73.9 Peripheral vascular disease, unspecified (principal); L97.329 Non-pressure chronic ulcer of left ankle with unspecified severity; L97.319 Non-pressure chronic ulcer of right ankle with unspecified severity; R21 Rash and other nonspecific skin eruption; Z20.822 Contact with and (suspected) exposure to COVID-19; Z88.0 Allergy status to penicillin; Z88.2 Allergy status to sulfonamides; Z95.818 Presence of other cardiac implants and grafts
CPT/HCPCS: 36415; 80053; 85025; 93925

== ENCOUNTER 2022-07-14 20:39 | Inpatient (IN) | payer OTHER ==
--- OUTSIDE RECORDS SUMMARY | 2022-07-14 20:41 | XMS REPORT | Continuity of Care Document ---
:1950 Author Organization [facility] t Address [address] [place] [address] Care Team Providers Name Role Phone DAVE OLIVER Attending Clinician Unavailable DAVE OLIVER Admitting Clinician Unavailable Payers Payer Name Policy Type Policy Number Effective Date Expiration Date S ource WELLCARE/WELLCARE [id number] 2022 [facility] 00:00:00 Problems This patient has no known problems. Allergies, Adverse Reactions, Alerts This patient has no known allergies or adverse reactions. Medications This patient has no known medications. Procedures This patient has no known procedures. Encounters Start End Encounter Admission Attending Care Care Encounter Source Date/Time Date/Time Type Type Clinicians Facility Department ID 2022-06-06 Outpatient [facility] [id number] [place] 07:28:26 [id number] [facility] 2022-05-31 Outpatient [facility] [id number] [place] 14:16:27 [id number] [facility] 2022-05-29 2022-06-03 Inpatient [facility] [id number] [facility] 07:21:00 16:44:00 DAVE Results This patient has no known results.
[2022-07-14 21:07] LABS: Absolute Lymphocytes (CBC) 1.6 K/uL (0.7-4.9); Lymphocytes % 12.4 % (15.3-44.8)
[2022-07-14 21:14] LABS: Hematocrit 45.6 % (39.6-49.0); MCV 89.8 fL (80-100); RBC Red Blood Cell Count 5.08 M/uL (4.33-5.43)
[2022-07-14 21:19] LABS: SARS-CoV-2 Antigen Rapid Res Negative (Negative)
[2022-07-14 21:29] LABS: Albumin 2.8 g/dL (3.4-5.0); Bilirubin Total 0.3 mg/dL (0.2-1.0); Protein, Total 6.7 g/dL (6.4-8.2)
[2022-07-14] MEDS ORDERED: FUROSEMIDE 40 MG/4 ML VIAL ONE (21:33)
[2022-07-14] MEDS ORDERED: NITROGLYCERIN 0.4 MG/TAB SL ONE (21:33)
--- NOTE | 2022-07-14 21:34 | RAD REPORT ---
EXAM DESCRIPTION: RAD - Chest Single View - 07/14/2022 9:22 pm CLINICAL HISTORY: CHEST PAIN Chest pain. COMPARISON: Chest Single View dated 07/03/2022; Chest Single View dated 06/19/2022; Chest Single Vie w dated 05/29/2022; Chest Single View dated 05/18/2022 FINDINGS: Portable technique limits examination quality. Moderate bilateral pulmonary opacities are present, greater on the right, most compatible with pneumo yamile. The heart is mildly prominent size. No displaced fractures.
[2022-07-14 21:44] LABS: Troponin High Sensitivity 724.1 pg/mL (<58.9)
[2022-07-14 21:45] LABS: Blood Morphology Comment NOT SEEN (NOT SEEN); Platelet Estimate INCR
--- NOTE | 2022-07-14 23:34 | ER ---
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 Coronavirus screen: At this time, the client does not indicate any symptoms associated with coronavirus-19. Ebola Screen: No symptoms or risks identified at this time. Initial Sepsis Screen: Does the patient meet any 2 criteria? No. Patient's initial sepsis screen is negative. Does the patient have a suspected source of infection? No. Patient's initial sepsis screen is negative. Risk Assessment: Do you want to hurt yourself or someone else? Patient reports no desire to harm self or others. Onset of symptoms was July 14, 2022. 20:45 Method Of Arrival: EMS: [facility] bb 20:45 Acuity: CHRIS 2 bb Historical: - Allergies: 20:52 PENICILLINS; bb 20:52 Sulfa (Sulfonamide Antibiotics); bb - PMHx: 20:52 Myocardial infarction; neuropathy; bb - PSHx: 20:52 Appendectomy; Heart Stents; Stented artery; Tonsillectomy; bb - Immunization history:: Client reports receiving the 2nd dose of the Covid vaccine. - Social history:: Smoking status: unknown. - Family history:: not pertinent. Screenin/26 02:47 Abuse screen: Denies threats or abuse. Nutritional screening: No deficits noted. vc1 Tuberculosis screening: No symptoms or risk factors identified. Assessment: 07/14 20:40 General: Appears in no apparent distress. uncomfortable, Behavior is calm, cooperative, jb4 appropriate for age. Pain: Complains of pain in anterior aspect of left upper chest Pain radiates to left arm Pain currently is 6 out of 10 on a pain scale. Neuro: Level of Consciousness is awake, alert, obeys commands, Oriented to person, place, time, situation. Cardiovascular: Patient's skin is warm and dry. Respiratory: Airway is patent Respiratory effort is even, unlabored, Respiratory pattern is regular, symmetrical. GI: No signs and/or symptoms were reported involving the gastrointestinal system. : No signs and/or symptoms were reported regarding the genitourinary system. EENT: No signs and/or symptoms were reported regarding the EENT system. Derm: Skin is intact, Skin is pink, warm \T\ dry. Musculoskeletal: Circulation, motion, and sensation intact. Range of motion: intact in all extremities, Swelling present in THIEN below the knee. 22:11 Reassessment: Patient appears in no apparent distress at this time. Patient and/or jb4 family updated on plan of care and expected duration. Pain level reassessed. Patient is alert, oriented x 3, equal unlabored respirations, skin warm/dry/pink. 22:41 Reassessment: Patient appears in no apparent distress at this time. Patient and/or jb4 family updated on plan of care and expected duration. Pain level reassessed. Patient is alert, oriented x 3, equal unlabored respirations, skin warm/dry/pink. Provider at the bedside. Patient states feeling better. Patient states symptoms have improved. Vital Signs: 20:45 BP 157 / 109; Pulse 89; Resp 24 S; Temp 98.5(O); Pulse Ox 89% on R/A; Weight 73.03 kg bb (R); Height 5 ft. 7 in. (170.18 cm) (R); Pain 6/10; 22:00 BP 165 / 93; Pulse 86; Resp 18 S; Pulse Ox 98% on 2 lpm NC; jb4 22:30 BP 151 / 97; Pulse 84; Resp 17; Pulse Ox 98% on 2 lpm NC; jb4 07/15 00:00 BP 142 / 99; Pulse 77; Resp 20; Pulse Ox 96% on 2 lpm NC; vc1 01:00 BP 149 / 95; Pulse 79; Resp 20; Pulse Ox 95% on 2 lpm NC; vc1 02:00 BP 152 / 96; Pulse 80; Resp 17; Pulse Ox 99% ; vc1 07/14 20:45 Body Mass Index 25.22 (73.03 kg, 170.18 cm) ED Course: 07/14 20:40 Patient arrived in ED. jb4 20:49 Ronak Mckeon RN is Primary Nurse. jb4 20:49 Giovanni Hicks MD is Attending Physician. rt 20:52 Triage completed. 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 EKG completed in triage. Results shown to . 20:55 Initial lab(s) drawn, by me, sent to lab. COVID swab sent to lab. Inserted saline lock: jb4 20 gauge in right forearm, using aseptic technique. Blood collected. 21:08 BNP Sent. jb4 21:08 Troponin High Sensitivity Sent. jb4 21:08 CMP Sent. jb4 21:08 CBC with Diff Sent. jb4 21:09 SARS RAPID Sent. jb4 21:23 Chest Single View XRAY In Process Unspecified. EDMS 23:33 Isrrael Aguilar MD is Hospitalizing Provider. rt 07/15 03:20 No provider procedures requiring assistance completed. Patient admitted, IV remains in jb4 place. Administered Medications: 07/14 21:40 Drug: Nitroglycerin 0.4 mg Route: Sublingual; jb4 21:40 Drug: Lasix (furosemide) 40 mg Route: IVP; Site: right forearm; jb4 07/15 01:22 Drug: Lovenox (enoxaparin) 1 mg/kg Route: Sub-Q; Site: right lower abdomen; jb4 Medication: 03:08 VIS not applicable for this client. vc1 Outcome: 07/14 23:34 Decision to Hospitalize by Provider. rt 07/15 03:20 Admitted to Med/surg accompanied by nurse, via wheelchair, room 208, with oxygen, with jb4 chart, Report called to VETO Rojas Condition: stable Discharge instructions given to patient, Instructed on the need for admit, Demonstrated understanding of instructions. 03:21 Patient left the ED. jb4 Signatures: Dispatcher [facility] [employer] EDMS Macy Cortez RN RN bb Ronak Mckeon RN RN jb4 Herminia Finch RN RN vc1 Giovanni Hicks MD MD rt Corrections: (The following items were deleted from the chart) 03:08 00:00 BP 142 / 99; Pulse 77bpm; Resp 20bpm; Pulse Ox 96% RA; vc1 vc1 03:08 01:00 BP 149 / 95; Pulse 79bpm; Resp 20bpm; Pulse Ox 95% RA; vc1 vc1
--- NOTE | 2022-07-14 23:34 | EDPHYS ---
Physician Documentation [facility] Name: Navjot Meneses Age: 72 yrs Sex: Male : 1950 Arrival Date: 07/14/2022 Time: 20:40 Bed 14 Private MD: ED Physician Giovanni Hicks HPI: 07/14 21:22 This 72 yrs old Male presents to ER via EMS with complaints of chest pain. rt 21:22 The patient or guardian reports chest pain that is located primarily in the substernal rt area. Onset: gradually. The pain does not radiate. Associated signs and symptoms: Pertinent positives: shortness of breath. The chest pain is described as a pressure. Duration: The patient or guardian reports a single episode, that is still ongoing, and unchanged. Modifying factors: The symptoms are alleviated by nothing. the symptoms are aggravated by nothing. Severity of pain: At its worst the pain was moderate. Historical: - Allergies: 20:52 PENICILLINS; bb 20:52 Sulfa (Sulfonamide Antibiotics); bb - PMHx: 20:52 Myocardial infarction; neuropathy; bb - PSHx: 20:52 Appendectomy; Heart Stents; Stented artery; Tonsillectomy; bb - Immunization history:: Client reports receiving the 2nd dose of the Covid vaccine. - Social history:: Smoking status: unknown. - Family history:: not pertinent. ROS: 21:22 Constitutional: Negative for fever, chills, and weight loss, Eyes: Negative for injury, rt pain, redness, and discharge, ENT: Negative for injury, pain, and discharge, Neck: Negative for injury, pain, and swelling, Abdomen/GI: Negative for abdominal pain, nausea, vomiting, diarrhea, and constipation, Back: Negative for injury and pain, MS/Extremity: Negative for injury and deformity, Skin: Negative for injury, rash, and discoloration, Neuro: Negative for headache, weakness, numbness, tingling, and seizure, Psych: Negative for depression, anxiety, suicide ideation, homicidal ideation, and hallucinations. 21:22 Cardiovascular: Positive for chest pain, edema. 21:22 Respiratory: Positive for cough, shortness of breath. Exam: 21:22 Constitutional: This is a well developed, well nourished patient who is awake, alert, rt and in no acute distress. Head/Face: Normocephalic, atraumatic. Eyes: Pupils equal round and reactive to light, extra-ocular motions intact. Lids and lashes normal. Conjunctiva and sclera are non-icteric and not injected. Cornea within normal limits. Periorbital areas with no swelling, redness, or edema. ENT: Nares patent. No nasal discharge, no septal abnormalities noted. Tympanic membranes are normal and external auditory canals are clear. Oropharynx with no redness, swelling, or masses, exudates, or evidence of obstruction, uvula midline. Mucous membranes moist. Neck: Trachea midline, no thyromegaly or masses palpated, and no cervical lymphadenopathy. Supple, full range of motion without nuchal rigidity, or vertebral point tenderness. No Meningismus. Chest/axilla: Normal chest wall appearance and motion. Nontender with no deformity. No lesions are appreciated. Cardiovascular: Regular rate and rhythm with a normal S1 and S2. No gallops, murmurs, or rubs. Normal PMI, no JVD. No pulse deficits. Abdomen/GI: Soft, non-tender, with normal bowel sounds. No distension or tympany. No guarding or rebound. No evidence of tenderness throughout. Skin: Warm, dry with normal turgor. Normal color with no rashes, no lesions, and no evidence of cellulitis. Neuro: Awake and alert, GCS 15, oriented to person, place, time, and situation. Cranial nerves II-XII grossly intact. Motor strength 5/5 in all extremities. Sensory grossly intact. Cerebellar exam normal. Normal gait. Psych: Awake, alert, with orientation to person, place and time. Behavior, mood, and affect are within normal limits. 21:22 ECG was reviewed by the Attending Physician. 21:22 Respiratory: No respiratory distress, bibasilar crackles heard. 21:22 Musculoskeletal/extremity: 3Plus pitting bilateral lower extremity edema. Vital Signs: 20:45 BP 157 / 109; Pulse 89; Resp 24 S; Temp 98.5(O); Pulse Ox 89% on R/A; Weight 73.03 kg bb (R); Height 5 ft. 7 in. (170.18 cm) (R); Pain 6/10; 22:00 BP 165 / 93; Pulse 86; Resp 18 S; Pulse Ox 98% on 2 lpm NC; jb4 22:30 BP 151 / 97; Pulse 84; Resp 17; Pulse Ox 98% on 2 lpm NC; jb4 07/15 00:00 BP 142 / 99; Pulse 77; Resp 20; Pulse Ox 96% on 2 lpm NC; vc1 01:00 BP 149 / 95; Pulse 79; Resp 20; Pulse Ox 95% on 2 lpm NC; vc1 02:00 BP 152 / 96; Pulse 80; Resp 17; Pulse Ox 99% ; vc1 07/14 20:45 Body Mass Index 25.22 (73.03 kg, 170.18 cm) bb MDM: 07/14 20:52 Patient medically screened. rt 23:34 Differential diagnosis: abnormal EKG, acute myocardial infarction, acute pericarditis, rt pneumonia, pneumothorax, pulmonary embolus, thoracic aortic disection. HEART Score: History: Highly Suspicious (2), ECG: Significant ST-deviation (2), Age: > or = 65 years (2), Risk Factors: > or = 3 Risk factors for atherosclerotic disease (2), Troponin: > or = 3 x Normal Limit (2), Total Score = 10. Data reviewed: vital signs, nurses notes, lab test result(s), EKG, radiologic studies. 07/14 20:51 Order name: CBC with Diff; Complete Time: 21:46 rt 07/14 20:51 Order name: CMP; Complete Time: 21:46 rt 07/14 20:51 Order name: Troponin High Sensitivity; Complete Time: 21:46 rt 07/14 20:51 Order name: BNP; Complete Time: 21:46 rt 07/14 20:52 Order name: SARS RAPID; Complete Time: 21:40 la1 07/14 21:20 Order name: Manual Differential; Complete Time: 21:46 EDMS 07/14 20:51 Order name: Chest Single View XRAY; Complete Time: 21:40 rt EC: Rate is 91 beats/min. Rhythm is regular, 1st Degree Block with Occasional PVCs. QRS rt [place] is Normal. IN interval is prolonged at 214 msec. QRS interval is normal. QT interval is normal. Clinical impression: NSR w/ Non-specific ST/T Changes. Administered Medications: 21:40 Drug: Nitroglycerin 0.4 mg Route: Sublingual; jb4 21:40 Drug: Lasix (furosemide) 40 mg Route: IVP; Site: right forearm; jb4 07/15 01:22 Drug: Lovenox (enoxaparin) 1 mg/kg Route: Sub-Q; Site: right lower abdomen; jb4 Disposition: 07/14 23:34 Critical Care:. rt Disposition Summary: 07/14/22 23:34 Hospitalization Ordered Hospitalization Status: Inpatient Admission rt Provider: Isrrael Aguilar rt [facility] rt Condition: Fair rt Problem: an ongoing problem rt Symptoms: have improved rt Bed/Room Type: Standard rt Room Assignment: 208(07/15/22 01:15) cg Diagnosis - Subsequent non-ST elevation (NSTEMI) myocardial infarction rt - Acute pulmonary edema rt Forms: - Medication Reconciliation Form rt - SBAR form rt Critical care time excluding procedures: 23:34 Critical care time: Bedside Care: 30 minutes, Consultation: 5 minutes. Total time: 35 rt minutes Signatures: Dispatcher [employer] EDMS Macy Cortez RN RN bb Attema, Lee, GRADING MACHINE OPERATOR-C GRADING MACHINE OPERATOR-Cla1 Arabella Kam RN RN cg Bryson, James, RN RN jb4 Giovanni Hicks MD MD rt Corrections: (The following items were deleted from the chart) 07/15 01:15 07/14 23:34 rt cg
--- NOTE | 2022-07-15 00:21 | P.HP ---
Certification for Inpatient Patient admitted to: Inpatient With expected LOS: >2 Midnights Patient will require the following post-hospital care: None Practitioner: I am a practitioner with admitting privileges, knowledge of patient current condition, hospital course, and medical plan of care. Services: Services provided to patient in accordance with Admission requirements found in Title 42 Section 412.3 of the Code of Federal Regulations <AshaPapito Mulligan - Last Filed: 07/15/22 00:16> Patient History Date of Service: 07/15/22 Reason for admission: NSTEMI, CHF History of Present Illness: 72-year-old male with history of CAD, previous UT, hyperlipidemia who had a STEMI in late April of this year presents the emergency department for chest pain, shortness of breath. He was evaluated in the emergency department his labs were significant for white blood cell count 12.8, high-sensitivity troponin 724.1, elevated BNP 7224, his EKG was without STEMI criteria chest x-ray showed moderate bilateral pulmonary opacities are present greater on the right most compatible pneumonia, the heart is mildly prominent in size. No displaced fractures. This is believed to be more related to an asymmetrical pulmonary edema as patient appears clinically very volume overloaded with elevated BNP, troponin, significant 3+ pitting edema lower extremities. He was given IV Lasix, therapeutic Lovenox in ED. ED read wishes to admit for further evaluation and management. - Past Medical/Surgical History Diabetic: No -: Neuropathy -: UT and CAD with stents -: COPD -: GERD -: HTN -: HLD -: BPH -: BPH -: Thrombocytosis -: cardiac catheterization with stent placement -: appy -: tonsilectomy Psychosocial/ Personal History: Patient is a . - Family History Father -: Heart disease, Hypertension - Social History Smoking Status: Former smoker Alcohol use: No CD- Drugs: No Caffeine use: Yes Place of Residence: Home <Papito Barry - Last Filed: 07/15/22 00:16> Date of Service: 07/16/22 <Isrrael Aguilar - Last Filed: 07/16/22 14:29> Allergies Penicillins Adverse Reaction (Severe, Verified 05/12/22 12:31) swelling face, and toungue Sulfa (Sulfonamide Antibiotics) Adverse Reaction (Verified 05/12/22 12:31) swelling face, and tounge Home Medications: Atorvastatin Calcium 40 mg PO DAILY 05/12/22 Cholecalciferol (Vitamin D3) [Vitamin D3] 1,000 unit PO DAILY 05/12/22 Cyanocobalamin [Vitamin B-12*] 1,000 mcg PO DAILY 05/12/22 Cyclobenzaprine HCl 0.5 tab PO TID PRN 05/12/22 Cyproheptadine HCl 4 mg PO BEDTIME 05/12/22 Diclofenac Sodium [Voltaren] 75 mg PO BID PRN 05/12/22 Duloxetine HCl 20 mg PO DAILY 05/12/22 Finasteride 5 mg PO DAILY 05/12/22 Gabapentin 2 cap PO TID 05/12/22 Omeprazole 20 mg PO BID 05/12/22 Trazodone HCl 0.5 tab PO BEDTIME 05/12/22 buPROPion HCL [Bupropion HCl Sr] 150 mg PO TID 05/12/22 Furosemide [Lasix*] 40 mg PO DAILY #30 tab 05/20/22 Metoprolol Tartrate [Lopressor*] 12.5 mg PO BID 6AM 6PM #30 tab 05/20/22 Tamsulosin [Flomax*] 0.4 mg PO BID #60 cap 05/20/22 Ticagrelor [Brilinta*] 90 mg PO BID #60 05/20/22 lisinopriL [Prinivil*] 2.5 mg PO DAILY #15 tab 05/20/22 Aspirin Chewable [Aspirin Chewable*] 81 mg PO DAILY #30 tab.chew 06/20/22 Fluticasone/Salmeterol [Advair 250-50 Diskus] 1 each IH BID #1 kit 06/20/22 Furosemide [Lasix] 40 mg PO DAILY #30 tab 06/20/22 levoFLOXacin [Levaquin] 750 mg PO DAILY #7 tab 07/05/22 Review of Systems 10-point ROS is otherwise unremarkable Respiratory: Cough, Shortness of Breath Cardiovascular: Chest Pain, Orthopnea, Edema <Papito Barry Isaak - Last Filed: 07/15/22 00:16> Physical Examination - Physical Exam General: Alert, In no apparent distress, Oriented x3 HEENT: Atraumatic, PERRLA, Mucous membr. moist/pink, EOMI, Sclerae nonicteric Neck: Supple, 2+ carotid pulse no bruit, No LAD, Without JVD or thyroid abnormality Respiratory: Diminished, Crackles/rales Cardiovascular: Regular rate/rhythm, Normal S1 S2, Edema Capillary refill: <2 Seconds Gastrointestinal: Normal bowel sounds, No tenderness Musculoskeletal: No tenderness Integumentary: No rashes Neurological: Normal speech, Normal strength at 5/5 x4 extr, Normal tone, Normal affect - Studies Laboratory Data (last 24 hrs) 07/14/22 20:55: Sodium 140, Potassium 4.0, BUN 12, Creatinine 1.21, Glucose 117 H, Total Bilirubin 0.3, AST 17, ALT 20, Alkaline Phosphatase 98 07/14/22 20:55: WBC 12.80 H, Hgb 14.7, Hct 45.6, Plt Count 825 H <Papito Barry - Last Filed: 07/15/22 00:16> Assessment and Plan - Plan Assessment: Acute on chronic diastolic congestive heart failure NSTEMI Hypertension Hyperlipidemia Thrombocytosis Plan: Acute on chronic diastolic congestive heart failure: Patient very unclear about his home medications, unsure if he is taking diuretic. He is given IV Lasix in the emergency department and is diuresing well, he had an echocardiogram performed on 05/13/2022 which revealed low normal left ventricular ejection fraction 50-55%, mild apical hypokinesis. Mild tricuspid regurgitation. Patient was previously admitted for a STEMI at that time, heart catheterization was performed which revealed severe left circumflex stenosis status post successful percutaneous coronary intervention, elevated left ventricular end- diastolic pressure. Moderate coronary artery disease. He was started on Brilinta, aspirin, statin, Lasix. It was noted that patient may need further evaluation for possible intervention of the RCA or the LAD as an outpatient at that time. Continue other home medications, cardiology consult in place. NSTEMI: Suspect this is related to demand ischemia, CHF. Continue diuresis, trend troponins, monitor on telemetry, pain-free at this time. Appreciate further input from cardiology. Hypertension: Continue home meds Hyperlipidemia: Continue home meds Thrombocytosis: Patient with significantly elevated platelets during previous admissions, they are still elevated but have come down significantly, continue Brilinta, aspirin, other medications. Patient following outpatient with hematology for further evaluation. DVT PPX: Therapeutic Lovenox Code status: Full Discharge Plan: Home Plan to discharge in: 72 Hours - Advance Directives Does patient have a Living Will: No Does patient have a Durable POA for Healthcare: No - Code Status/Comfort Care Code Status Assessed: Yes (Full code) Critical Care: No Time Spent Managing Pts Care (In Minutes): 70 <Papito Barry - Last Filed: 07/15/22 00:16> Date of Service: 07/15/22 Subjective: HPI as mentioned above Physical Examination: Vitals: Afebrile vital signs are stable Physical exam: Cardiovascular: RRR with ELIANA II/ Lungs: basilar crackles Abdomen: Within normal limits Neuro: Awake, alert, oriented to person place and time Assessment: 1. Acute CHF exacerbation Plan: 1. Continue with current plan of care as mentioned above <Isrrael Aguilar - Last Filed: 07/16/22 14:29>
[2022-07-15] MEDS ORDERED: ENOXAPARIN 40 MG/0.4 ML SQ ONE (00:50)
[2022-07-15] MEDS ORDERED: ENOXAPARIN 30 MG/0.3 ML SQ ONE (00:50)
[2022-07-15] MEDS ORDERED: ONDANSETRON 4 MG/2 ML VIAL IV PRN (02:48)
[2022-07-15 04:30] LABS: Absolute Lymphocytes (CBC) 2.4 K/uL (0.7-4.9); Hematocrit 39.8 % (39.6-49.0); Lymphocytes % 18.2 % (15.3-44.8); MCV 88.6 fL (80-100); MPV 7.3 fL (7.6-11.3); RBC Red Blood Cell Count 4.49 M/uL (4.33-5.43)
[2022-07-15 05:05] LABS: Potassium 3.9 mmol/L (3.5-5.1)
[2022-07-15] MEDS: METOPROLOL TAR 25 MG TAB PO SCH ×2 (05:32→17:50)
[2022-07-15] MEDS: TICAGRELOR 90 MG TABLET PO SCH ×2 (09:22→20:53)
[2022-07-15] MEDS: TAMSULOSIN 0.4 MG SR CAP PO SCH ×2 (09:22→20:54)
[2022-07-15] MEDS: ENOXAPARIN 80 MG/0.8 ML SQ SCH ×2 (09:22→20:53)
[2022-07-15] MEDS: ASPIRIN EC 81 MG TAB PO SCH (09:23)
[2022-07-15] MEDS: lisinopriL 5 MG TAB PO SCH (09:23)
[2022-07-15] MEDS: FUROSEMIDE 40 MG/4 ML VIAL IV SCH ×2 (09:23→17:00)
[2022-07-15] MEDS ORDERED: NA CHLORIDE 0.9% 500 ML ONE (13:46)
[2022-07-15] MEDS ORDERED: HEPA 1000U/500MLS 2,000 UNIT/1,000 ML BAG IV ONE (14:05)
[2022-07-15] MEDS ORDERED: HEPARIN 10,000 UNIT/10 ML VIAL IV ONE (14:06)
[2022-07-15] MEDS ORDERED: VERAPAMIL HCL 10 MG/4 ML VIAL IV ONE (14:06)
[2022-07-15] MEDS ORDERED: LIDOCAINE 1% 20 ML MDV ONE (14:06)
[2022-07-15] MEDS ORDERED: HEPARIN 5000 UNIT/ML 1 ML VIAL ONE (14:06)
[2022-07-15] MEDS ORDERED: ATROPINE SULF 1 MG/10 ML SYR IV ONE (14:07)
[2022-07-15] MEDS ORDERED: MIDAZOLAM HCL 2 MG/2 ML INJ ONE (14:20)
[2022-07-15] MEDS ORDERED: FENTANYL CITR 100 MCG/2 ML ONE (14:20)
[2022-07-15] MEDS ORDERED: TICAGRELOR 90 MG TABLET PO ONE (14:49)
[2022-07-15] MEDS ORDERED: REGADENOSON 0.4 MG/5 ML SYR IV ONE (14:49)
--- NOTE | 2022-07-15 15:12 | CON ---
Date of Consultation: 07/15/2022 Reason For Consultation: Non-ST elevation myocardial infarction and CHF. History Of Present Illness: A -bavr-tfn male with history of coronary artery disease, rece nt STEMI in April, status post multivessel PCI. He has been compliant with Brilinta and aspirin pe r his report. He comes in with significant shortness of breath and orthopnea, lower extremity edema, and chest pressure that radiates to the left upper extremity. Troponin was significantly elevated. He denies having any diaphoresis, nausea, vomiting, or any other complaints. Past Medical History: As outlined above in the HPI. Medications: Refer to reconciliation sheet for detailed list. Allergies: PENICILLIN AND SULFA. Family History: No premature coronary artery disease or cancer. Social History: He is an ex-smoker, quit smoking very recently. Does not drink, use any drugs. Review of Systems: All systems reviewed and they were negative except what mentioned in HPI. Physical Examination: Vital Signs: Reviewed. Head and Neck: Pupils are equal, reactive to light. Intact eye movements. No cervical lymphadenopa thy. Positive JVD. Lungs: Clear to auscultation bilaterally. No rhonchi, wheezing, or crackles. Heart: Regular rate and rhythm. No extra sounds. Abdomen: Soft, nontender. Bowel sounds positive. No organomegaly. No masses or hernia. No rigidi ty or rebound. Extremities: 2+ pedal edema bilaterally. No clubbing or cyanosis. Intact pulses. Skin: No rash. Neurologic: Alert, awake, oriented x3. No acute focal deficits appreciated. Investigations: Troponin is trending up, peaked at 1961 so far. BUN is 12, creatinine 1.08 and NT-p roBNP was 7224 and hemoglobin is 13.1. Assessment And Recommendations: 1.Non-ST elevation myocardial infarction. Keep n.p.o., plan for coronary angiogram today, and percu taneous coronary intervention as needed. Continue Brilinta and aspirin. 2.Acute congestive heart failure exacerbation. The ejection fraction is borderline, also has mild s ystolic dysfunction. Agree with Lasix 40 mg IV q.8 hours and carefully monitor BUN, creatinine, elec trolytes. Further recommendation to follow post coronary angiogram today. SR/MODL Voice ID: [id number] Report ID: [id number]
--- NOTE | 2022-07-15 17:40 | OP ---
Date of Procedure: 07/15/2022 Surgeon: ADALBERTO STRAUSS Procedure Performed: Selective coronary angiogram. Indication: Non-ST elevation myocardial infarction/acute heart failure. Access: Right femoral artery 6-Vietnamese closed with 6-Vietnamese Angio-Seal. Complications: None. Bleeding: Less than 10 mL. Description Of Procedure: After risks, benefits, alternatives were explained, the patient agreed to procedure and signed formal consent. The patient was brought into the cardiac catheterization labora tory, prepped and draped in the usual sterile fashion. Then, I accessed the right femoral artery usi ng micropuncture kit, ultrasound guidance and fluoroscopy and placed a 6-Vietnamese Malone sheath and t ook a 6-Vietnamese JL4 catheter into the aortic root, engaged left main, took standard views and exchange d for 6-Vietnamese JR4 catheter, engaged the RCA, took standard views. I then removed the catheter and s bashir and placed a 6-Vietnamese Angio-Seal for closure with good hemostasis. Findings: 1.Left main is normal. 2.LAD; proximal to mid LAD stent is patent. Diagonal branch appears to be without significant disea se. Mid to distal LAD, there was a focal 40% to 50% stenosis, which is old. 3.Left circumflex; large size vessel with ostial 40% and then there is a patent stent that extends t o the OM. 4.RCA; large and dominant with proximal to mid stent that is patent. Then, distal 50% stenosis and then the right PDA and the right PLP with luminal irregularities. Conclusion: 1.Patent stents of the LAD, left circumflex, and RCA. 2.Moderate coronary artery disease, otherwise as described above. Plan: 1.Continue Brilinta and aspirin and high-dose statin. 2.Aggressive diuresis for acute congestive heart failure, Lasix 80 mg q.8 hours. SR/MODL Voice ID: [id number] Report ID: [id number]
[2022-07-15] MEDS: ATORVASTATIN 40 MG TAB PO SCH (20:54)
[2022-07-16] MEDS ORDERED: FUROSEMIDE 40 MG/4 ML VIAL IV ONE ×2 (00:44)
--- NOTE | 2022-07-16 01:27 | P.PN ---
Subjective Date of Service: 07/16/22 Chief Complaint: NSTEMI, CHF Subjective: Improving (Still with edema, dyspnea at rest, reported swelling to cath site tonight.) <Papito Barry - Last Filed: 07/16/22 01:21> Date of Service: 07/16/22 <Isrrael Aguilar - Last Filed: 07/16/22 14:31> Review of Systems 10-point ROS is otherwise unremarkable Respiratory: Shortness of Breath, SOB with Excertion Cardiovascular: Edema <Papito Barry Isaak - Last Filed: 07/16/22 01:21> Physical Examination - Vital Signs Temperature: 97.4 F Blood Pressure: 181/74 Pulse: 74 Respirations: 16 Pulse Ox (%): 100 - Physical Exam General: Alert, In no apparent distress, Oriented x3 HEENT: Atraumatic, PERRLA, EOMI Neck: Supple, JVD not distended Respiratory: Diminished, Crackles/rales Cardiovascular: Regular rate/rhythm, Normal S1 S2, Edema Capillary refill: <2 Seconds Gastrointestinal: Normal bowel sounds, No tenderness Musculoskeletal: Other (Swelling to right femoral cath site, apparent hematoma) Integumentary: No rashes Neurological: Normal speech, Normal tone, Normal affect Lymphatics: No axilla or inguinal lymphadenopathy - Studies Medications List Reviewed: Yes <Papito Barryur - Last Filed: 07/16/22 01:21> Assessment And Plan - Plan Assessment: Acute on chronic diastolic congestive heart failure NSTEMI Right femoral hematoma S/P cardiac cath Hypertension Hyperlipidemia Thrombocytosis Plan: Acute on chronic diastolic congestive heart failure: Evaluated by cardiology, continue diuresis with increased dose of Lasix 40 mg IV every 8. Patient still dyspnea at rest and on exertion with pedal edema present. NSTEMI: Troponin trended up from admission, patient had coronary angiogram performed which revealed patent stents of the LAD, left circumflex and RCA. Moderate coronary artery disease. Recommendations from cardiology are to continue Brilinta, aspirin and high-dose statin. Right femoral hematoma S/P cardiac cath: nursing staff to hold direct pressure for 45 minutes first followed by placement of sand bag. Hypertension: Continue home meds Hyperlipidemia: Continue home meds Thrombocytosis: Patient with significantly elevated platelets during previous a dmissions, they are still elevated but have come down significantly, continue Brilinta, aspirin, other medications. Patient following outpatient with hematology for further evaluation. DVT PPX: Therapeutic Lovenox Code status: Full Discharge Plan: Home Plan to discharge in: 48 Hours - Code Status/Comfort Care Code Status Assessed: Yes (Full code) Critical Care: No Time Spent Managing PTS Care (In Minutes): 25 <Papito Barry - Last Filed: 07/16/22 01:21> Date of Service: 07/16/22 Subjective: Status post cardiac catheterization. Patent stents of the LAD, left circumflex, and RCA. Clinically appears to be doing much better. Clinical symptoms are improving. Encourage patient to get out of bed and ambulate today. Physical Examination: Vitals: Afebrile vital signs are stable Physical exam: Cardiovascular: RRR with ELIANA II/ Lungs: basilar crackles Abdomen: Within normal limits Neuro: Awake, alert, oriented to person place and time Assessment: 1. Acute CHF exacerbation Plan: 1. Echocardiogram reviewed 2. Encourage patient to get out of bed and ambulate 3. Continue with Beta harman 4. Cardiology consultation 5. Aggressive diuresis 6. Strict I's and O's 7. Repeat CXR in AM 8. Daily weights 9. Education regarding diet and treatment of congestive heart failure <Isrrael Aguilar - Last Filed: 07/16/22 14:31>
[2022-07-16] MEDS: MORPHINE 2 MG/ML SYR IV PRN ×2 (03:27→15:35)
[2022-07-16 04:30] VITALS: BMI 25.2
[2022-07-16 04:40] LABS: Absolute Lymphocytes (CBC) 1.5 K/uL (0.7-4.9); Hematocrit 38.7 % (39.6-49.0); Lymphocytes % 10.3 % (15.3-44.8); MCV 88.6 fL (80-100); RBC Red Blood Cell Count 4.37 M/uL (4.33-5.43)
[2022-07-16 05:05] LABS: Potassium 3.4 mmol/L (3.5-5.1)
[2022-07-16] MEDS: METOPROLOL TAR 25 MG TAB PO SCH ×2 (06:00→17:44)
[2022-07-16] MEDS ORDERED: NITROGLYCERIN 0.4 MG/TAB SL PRN (08:00)
[2022-07-16] MEDS ORDERED: NA CHLORIDE 0.9% 1,000 ML IV SCH (08:00)
[2022-07-16] MEDS: lisinopriL 5 MG TAB PO SCH (08:26)
[2022-07-16] MEDS: FUROSEMIDE 40 MG/4 ML VIAL IV SCH ×2 (08:27→17:45)
[2022-07-16] MEDS: ASPIRIN EC 81 MG TAB PO SCH (08:27)
[2022-07-16] MEDS: TAMSULOSIN 0.4 MG SR CAP PO SCH ×2 (08:27→21:05)
[2022-07-16] MEDS: TICAGRELOR 90 MG TABLET PO SCH ×2 (08:27→21:05)
--- NOTE | 2022-07-16 08:52 | PN ---
Date of Progress Note: 07/16/2022 Subjective: Seen at bedside, doing clinically well. No chest pain. Shortness of breath is improved . No significant orthopnea. Still has some lower extremity edema. He developed a small right groin hematoma yesterday that has stabilized. Review of Systems: No chest pain. Has shortness of breath on exertion with lower extremity edema. No nausea, vomiting, diarrhea. All other systems reviewed are negative. Physical Examination: Vital Signs: Reviewed. Head and Neck: Pupils are equal, reactive to light. Intact eye movements. No JVD. No cervical lym phadenopathy. Neck is supple. Thyroid is not enlarged. Lungs: Clear to auscultation bilaterally. No rhonchi, rales, or crackles. No accessory muscle use. Heart: Regular rate and rhythm. No extra sounds. Abdomen: Soft, nontender. Bowel sounds positive. No organomegaly. No masses or tenderness. Extremities: 1+ pedal edema bilaterally. No clubbing, cyanosis. Intact pulses. Skin: No rashes. Neurologic: Alert, awake, oriented x3. No acute focal deficits appreciated. Investigations: BUN 14, creatinine 1.04. Hemoglobin is 13. Assessment And Recommendations: 1.Acute on chronic systolic heart failure exacerbation. Doing very well. Change Lasix to q.12 hour s. Monitor BUN, creatinine, electrolytes, and replace potassium. 2.Elevated troponin. This is demand ischemia, status post coronary angiogram. All stents are patent. No new stenosis is found. Continue Brilinta and aspirin and disc ontinue the Lovenox. SR/MODL Voice ID: [id number] Report ID: [id number]
[2022-07-16] MEDS ORDERED: FUROSEMIDE 40 MG/4 ML VIAL IV SCH ×3 (09:00)
[2022-07-16] MEDS ORDERED: NA CHLORIDE 0.9% 1,000 ML IV PRN ×2 (16:16→17:00)
[2022-07-16 20:56] LABS: Hematocrit 35.7 % (39.6-49.0)
[2022-07-16] MEDS: ATORVASTATIN 40 MG TAB PO SCH (21:04)
[2022-07-17] MEDS: METOPROLOL TAR 25 MG TAB PO SCH ×2 (06:14→16:59)
[2022-07-17 06:37] LABS: Absolute Lymphocytes (CBC) 1.9 K/uL (0.7-4.9); Lymphocytes % 15.8 % (15.3-44.8); MCV 87.4 fL (80-100); MPV 6.8 fL (7.6-11.3); RBC Red Blood Cell Count 3.89 M/uL (4.33-5.43)
[2022-07-17 06:56] LABS: Albumin 2.3 g/dL (3.4-5.0); Bilirubin Total 0.4 mg/dL (0.2-1.0); Potassium 3.3 mmol/L (3.5-5.1); Protein, Total 5.5 g/dL (6.4-8.2)
--- NOTE | 2022-07-17 07:46 | RAD REPORT ---
EXAM DESCRIPTION: RAD - Chest Single View - 07/17/2022 5:23 am CLINICAL HISTORY: pneumonia COMPARISON: Chest Single View dated 07/14/2022; Chest Single View dated 07/03/2022; Chest Single Vie w dated 06/19/2022; Chest Single View dated 05/29/2022; Thorax Wo Con dated 06/19/2022 FINDINGS: Lines: None. Lungs: Improved aeration in the lung bases compared with 07/14/2022. In particular, the basilar airsp jaida disease demonstrates moderate clearing. Pleural: No significant pleural effusions or pneumothorax. Cardiac: Similar size and configuration. Mediastinum: Within normal limits. Bones: No acute fractures. Other: None IMPRESSION: Improved aeration of the lungs with resolving bilateral airspace disease.
[2022-07-17 07:56] LABS: Blood Morphology Comment NOT SEEN (NOT SEEN); Platelet Estimate INCR; Platelets, Giant NOTED
[2022-07-17] MEDS: FUROSEMIDE 40 MG/4 ML VIAL IV SCH ×2 (09:55→16:59)
[2022-07-17] MEDS: lisinopriL 5 MG TAB PO SCH (09:55)
[2022-07-17] MEDS: ASPIRIN EC 81 MG TAB PO SCH (09:55)
[2022-07-17] MEDS: TAMSULOSIN 0.4 MG SR CAP PO SCH ×2 (09:55→20:42)
[2022-07-17] MEDS: TICAGRELOR 90 MG TABLET PO SCH ×2 (09:56→20:42)
[2022-07-17] MEDS: MORPHINE 2 MG/ML SYR IV PRN ×2 (12:51→23:26)
--- NOTE | 2022-07-17 14:26 | RAD REPORT ---
EXAM DESCRIPTION: US - Extremity Nonvascular Complete - 07/17/2022 2:03 pm CLINICAL HISTORY: right groin s/p cardiac cath/pseudoaneurysm COMPARISON: Extrem Venous W Compress Neil dated 07/03/2022 FINDINGS: Sonographic evaluation of the right groin area of swelling and redness shows 2 benign lymp h nodes the maximum dimension of 2 cm. Both show fatty hilum filling the majority of the lymph node v olume. No pseudoaneurysm, hematoma or other abnormal extraluminal blood collection. There may be minimal tong unt of edema or hemorrhagic products in the soft tissues. IMPRESSION: No pseudoaneurysm, hematoma or other significant extraluminal blood collection. Right groin reactive lymph nodes largest at 2 cm.
[2022-07-17] MEDS: ACETAMINOPHEN 325 MG TABLET PO PRN ×2 (15:18→20:41)
--- NOTE | 2022-07-17 19:27 | PN ---
Date of Progress Note: 07/17/2022 Subjective: Seen by bedside. He is breathing much easier, has no significant orthopnea today. Review of Systems: No chest pain. Has mild shortness of breath on exertion. No orthopnea. No nausea, vomiting, diarrh ea. Has lower extremity edema. No dysuria, polyuria, or urinary urgency. All other systems reviewe d are negative. Physical Examination: Vital Signs: Reviewed. Head and Neck: Pupils are equal, reactive to light. Intact eye movements. No JVD. No cervical lym phadenopathy. Neck is supple. Thyroid is not enlarged. Lungs: Clear to auscultation bilaterally. No rhonchi, wheezing, or crackles. No accessory muscle u se. Heart: Regular rate and rhythm. No extra sounds. Abdomen: Soft, nontender. Bowel sounds positive. No organomegaly. No masses or hernia. No rigidi ty or rebound. Extremities: Edema bilaterally. No clubbing, cyanosis. Intact pulses. Skin: No rash. Neurologic: Alert, awake, oriented x3. No acute focal deficits appreciated. Investigations: Sodium 136, potassium 3.3, BUN 12, creatinine 1.03, and hemoglobin is 11.5. Assessment And Recommendations: 1.Acute on chronic systolic heart failure exacerbation. He is improving very well. Continue IV diu resis 4 more days. Plan for switching to oral Lasix tomorrow. 2.Right groin hematoma post left heart catheterization and the hematoma was stable. Hemoglobin is s table. Continue to monitor. 3.Chest pain with elevated troponin, status post coronary angiogram and there were no significant ch anges in the coronary artery anatomies. All stents are patent. Continue Brilinta and aspirin. 4.Peripheral vascular disease. We will plan for peripheral angiogram at a later time once the heart failure is controlled. SR/MODL Voice ID: [id number] Report ID: [id number]
[2022-07-17] MEDS: ATORVASTATIN 40 MG TAB PO SCH (20:42)
[2022-07-18] MEDS: ACETAMINOPHEN 325 MG TABLET PO PRN (03:10)
[2022-07-18] MEDS: METOPROLOL TAR 25 MG TAB PO SCH ×2 (06:05→17:51)
[2022-07-18] MEDS: FUROSEMIDE 40 MG/4 ML VIAL IV SCH (08:29)
[2022-07-18] MEDS: TICAGRELOR 90 MG TABLET PO SCH ×2 (08:30→20:12)
[2022-07-18] MEDS: ASPIRIN EC 81 MG TAB PO SCH (08:30)
[2022-07-18] MEDS: TAMSULOSIN 0.4 MG SR CAP PO SCH ×2 (08:30→20:12)
[2022-07-18] MEDS: lisinopriL 5 MG TAB PO SCH (08:31)
[2022-07-18] MEDS: FUROSEMIDE 40 MG TABLET PO SCH ×2 (09:00→17:51)
[2022-07-18] MEDS: MORPHINE 2 MG/ML SYR IV PRN ×2 (10:52→20:12)
--- NOTE | 2022-07-18 13:56 | PN ---
Date of Progress Note: 07/18/2022 Subjective: Seen by bedside. Clinically continues to improve. Has pain to lower extremity and some what healed ulcers. Review of Systems: Has mild orthopnea and shortness of breath on exertion, lower extremity edema. No nausea, vomiting, diarrhea. No abdominal pain. No dysuria, polyuria, or urinary urgency. All other systems reviewed and they were negative. Physical Examination: Vital Signs: Temperature is 98.2, pulse 62, breathing at 16, blood pressure 124/74, saturating 96% o n room air. General: Pleasant elderly male, in no apparent distress. Head and Neck: Pupils are equal, reactive to light. Intact eye movements. No JVD. No cervical lym phadenopathy. Neck is supple. Thyroid is not enlarged. Lungs: Clear to auscultation bilaterally. No rhonchi, wheezing, or crackles. No accessory muscle u se. Heart: Regular rate and rhythm. No extra sounds. Abdomen: Soft, nontender. Bowel sounds positive. No organomegaly. No masses or hernia. No rigidi ty or rebound. Extremities: No edema, clubbing, or cyanosis. Intact pulses. Skin: No rash. Neurologic: Alert, awake, oriented x3. No acute focal deficits appreciated. Investigations: Labs were reviewed. Assessment And Recommendations: 1.Acute on chronic systolic heart failure exacerbation. He is getting better. Continue diuresis fo r 1 more day. Plan for possible discharge tomorrow. 2.Unhealed ulcers of lower extremity. Check arterial Doppler. 3.Right groin hematoma, post left heart catheterization, has been stable. Continue to monitor. SR/MODL Voice ID: [id number] Report ID: [id number]
--- NOTE | 2022-07-18 17:53 | EKG ---
Test Date: 2022-07-14 Test Time: 20:43:03 Artificial Stone Applicator: MEASUREMENT RESULTS: Intervals: Rate: 91 OH: 214 QRSD: 100 QT: 378 QTc: 464 [place]: P: 60 OH: 214 QRS: -45 T: 56 INTERPRETIVE STATEMENTS: Sinus rhythm with 1st degree AV block with frequent premature ventricular complexes Low voltage QRS Left anterior fascicular block Possible Lateral infarct, age undetermined Inferior infarct, age undetermined Abnormal ECG Compared to ECG 07/03/2022 20:59:00 Ventricular premature complex(es) now present Low QRS voltage now present Sinus bradycardia no longer present T-wave abnormality no longer present Possible ischemia no longer present Myocardial infarct finding still present Electronically Signed On 07-18-22 17:46:55 DESKTOP MANAGER by Rico Leary
[2022-07-18 18:16] VITALS: O2SAT 96
[2022-07-18] MEDS: ATORVASTATIN 40 MG TAB PO SCH (20:12)
[2022-07-18] MEDS ORDERED: DOCUSATE NA 100 MG CAP PO PRN (21:03)
[2022-07-18] MEDS ORDERED: MELATONIN 5 MG TABLET PO PRN (23:28)
[2022-07-19] MEDS: ACETAMINOPHEN 325 MG TABLET PO PRN ×2 (00:40→06:15)
[2022-07-19] MEDS: MORPHINE 2 MG/ML SYR IV PRN (03:06)
--- NOTE | 2022-07-19 05:59 | P.PN ---
Subjective Date of Service: 07/17/22 Subjective: No new changes, No C/O voiced, Improving Review of Systems 10-point ROS is otherwise unremarkable Physical Examination - Vital Signs Temperature: 97.4 F Blood Pressure: 115/71 Pulse: 65 Respirations: 18 Pulse Ox (%): 99 - Physical Exam General: Alert, In no apparent distress, Oriented x3 Respiratory: Crackles/rales (basilar) Cardiovascular: Regular rate/rhythm, Normal S1 S2, No murmurs Gastrointestinal: Normal bowel sounds, Soft and benign, Non-distended, No tenderness Musculoskeletal: No clubbing, No swelling, No tenderness Integumentary: Skin breakdown, Pressure ulcer Neurological: Sensation intact, Cranial nerves 3-12 intact - Studies Medications List Reviewed: Yes Assessment & Plan - Problems (Diagnosis) (1) Acute on chronic systolic heart failure Current Visit: No Status: Acute (2) Peripheral vascular disease Current Visit: No Status: Acute (3) COPD (chronic obstructive pulmonary disease) Current Visit: No Status: Chronic Qualifiers: COPD type: emphysema Emphysema type: centrilobular Qualified Code(s): J43.2 - Centrilobular emphysema (4) Coronary artery disease Current Visit: No Status: Chronic Qualifiers: Coronary Disease-Associated Artery/Lesion type: [place] artery [place] vs. transplanted heart: [place] heart Associated angina: without angina Qualified Code(s): I25.10 - Atherosclerotic heart disease of [place] coronary artery without angina pectoris (5) Hypertension Current Visit: No Status: Chronic Qualifiers: Hypertension type: primary hypertension Qualified Code(s): I10 - Essential (primary) hypertension (6) Femoral artery hematoma complicating cardiac catheterization Current Visit: Yes Status: Acute - Plan 1. Pain control 2. Appreciate Cardiology consultation 3. Ultrasound of the lower extremity to evaluate for the hematoma 4. Anti-platelet therapy, anti coagulation, beta-harman, statin, and O2 as needed 5. IV morphine for pain 6. continue with diuresing 7. monitor volume status 8. GI and DVT prophylaxis Discharge Plan: Home Plan to discharge in: Greater than 2 days - Advance Directives Does patient have a Living Will: No Does patient have a Durable POA for Healthcare: No - Code Status/Comfort Care Code Status Assessed: Yes Code Status: Full Code Critical Care: No Time Spent Managing PTS Care (In Minutes): 35
--- NOTE | 2022-07-19 06:01 | P.PN ---
Date of Service: 07/18/22 Subjective Subjective: No new changes, No C/O voiced, Improving Review of Systems 10-point ROS is otherwise unremarkable Physical Examination - Vital Signs REVIEWED - Physical Exam General: Alert, In no apparent distress, Oriented x3 Respiratory: Crackles/rales (basilar) Cardiovascular: Regular rate/rhythm, Normal S1 S2, No murmurs Gastrointestinal: Normal bowel sounds, Soft and benign, Non-distended, No tenderness Musculoskeletal: No clubbing, No swelling, No tenderness Integumentary: Skin breakdown, Pressure ulcer Neurological: Sensation intact, Cranial nerves 3-12 intact Assessment & Plan - Problems (Diagnosis) (1) Acute on chronic systolic heart failure Current Visit: No Status: Acute (2) Peripheral vascular disease Current Visit: No Status: Acute (3) COPD (chronic obstructive pulmonary disease) Current Visit: No Status: Chronic Qualifiers: COPD type: emphysema Emphysema type: centrilobular Qualified Code(s): J43.2 - Centrilobular emphysema (4) Coronary artery disease Current Visit: No Status: Chronic Qualifiers: Coronary Disease-Associated Artery/Lesion type: [place] artery [place] vs. transplanted heart: [place] heart Associated angina: without angina Qualified Code(s): I25.10 - Atherosclerotic heart disease of [place] coronary artery without angina pectoris (5) Hypertension Current Visit: No Status: Chronic Qualifiers: Hypertension type: primary hypertension Qualified Code(s): I10 - Essential (primary) hypertension (6) Femoral artery hematoma complicating cardiac catheterization Current Visit: Yes Status: Acute - Plan CONTINUE WITH PLAN OF CARE MENTIONED BELOW: 1. Pain control 2. Appreciate Cardiology consultation 3. Ultrasound of the lower extremity to evaluate for the hematoma 4. Anti-platelet therapy, anti coagulation, beta-harman, statin, and O2 as needed 5. IV morphine for pain 6. continue with diuresing 7. monitor volume status 8. GI and DVT prophylaxis
--- NOTE | 2022-07-19 06:05 | P.DS ---
Discharge Date: 07/19/22 Reason for Admission: NSTEMI, CHF - Problems (1) Acute on chronic systolic heart failure Current Visit: No Status: Acute (2) Peripheral vascular disease Current Visit: No Status: Acute (3) COPD (chronic obstructive pulmonary disease) Current Visit: No Status: Chronic Qualifiers: COPD type: emphysema Emphysema type: centrilobular Qualified Code(s): J43.2 - Centrilobular emphysema (4) Coronary artery disease Current Visit: No Status: Chronic Qualifiers: Coronary Disease-Associated Artery/Lesion type: [place] artery [place] vs. transplanted heart: [place] heart Associated angina: without angina Qualified Code(s): I25.10 - Atherosclerotic heart disease of [place] coronary artery without angina pectoris (5) Hypertension Current Visit: No Status: Chronic Qualifiers: Hypertension type: primary hypertension Qualified Code(s): I10 - Essential (primary) hypertension (6) Femoral artery hematoma complicating cardiac catheterization Current Visit: Yes Status: Acute Brief History of Present Illness: 72-year-old male with history of CAD, previous [place], hyperlipidemia who had a STEMI in late April of this year presents the emergency department for chest pain, shortness of breath. He was evaluated in the emergency department his labs were significant for white blood cell count 12.8, high-sensitivity troponin 724.1, elevated BNP 7224, his EKG was without STEMI criteria chest x-ray showed moderate bilateral pulmonary opacities are present greater on the right most compatible pneumonia, the heart is mildly prominent in size. No displaced fractures. This is believed to be more related to an asymmetrical pulmonary edema as patient appears clinically very volume overloaded with elevated BNP, troponin, significant 3+ pitting edema lower extremities. He was given IV Lasix, therapeutic Lovenox in ED. ED read wishes to admit for further evaluation and management. Vital Signs/Physical Exam: Temp Pulse Resp BP Pulse Ox 97.4 F 65 18 115/71 99 07/19/22 05:59 07/19/22 05:59 07/19/22 05:59 07/19/22 05:59 07/19/22 05:59 General: Alert, In no apparent distress, Oriented x3 Laboratory Data at Discharge: WBC 11.80 K/uL (4.3-10.9) H 07/17/22 06:08 Hgb 11.5 g/dL (13.6-17.9) L 07/17/22 06:08 Hct 34.0 % (39.6-49.0) L 07/17/22 06:08 Plt Count 704 K/uL (152-406) H 07/17/22 06:08 Sodium 136 mmol/L (136-145) 07/17/22 06:08 Potassium 3.3 mmol/L (3.5-5.1) L 07/17/22 06:08 BUN 12 mg/dL (7-18) 07/17/22 06:08 Creatinine 1.03 mg/dL (0.70-1.30) 07/17/22 06:08 Glucose 104 mg/dL (74-106) 07/17/22 06:08 Magnesium 2.0 mg/dL (1.6-2.4) 07/17/22 06:08 Total Bilirubin 0.4 mg/dL (0.2-1.0) 07/17/22 06:08 AST 10 U/L (15-37) L 07/17/22 06:08 ALT 15 U/L (16-61) L 07/17/22 06:08 Alkaline Phosphatase 73 U/L (45-117) 07/17/22 06:08 Triglycerides 73 mg/dL (<150) 07/15/22 03:54 Cholesterol 169 mg/dL (<200) 07/15/22 03:54 HDL Cholesterol 50 mg/dL (40-60) 07/15/22 03:54 Cholesterol/HDL Ratio 3.38 07/15/22 03:54 Home Medications: Atorvastatin Calcium 40 mg PO DAILY 05/12/22 Cholecalciferol (Vitamin D3) [Vitamin D3] 1,000 unit PO DAILY 05/12/22 Cyanocobalamin [Vitamin B-12*] 1,000 mcg PO DAILY 05/12/22 Cyclobenzaprine HCl 0.5 tab PO TID PRN 05/12/22 Cyproheptadine HCl 4 mg PO BEDTIME 05/12/22 Duloxetine HCl 20 mg PO DAILY 05/12/22 Finasteride 5 mg PO DAILY 05/12/22 Gabapentin 2 cap PO TID 05/12/22 Omeprazole 20 mg PO BID 05/12/22 Trazodone HCl 0.5 tab PO BEDTIME 05/12/22 buPROPion HCL [Bupropion HCl Sr] 150 mg PO TID 05/12/22 Tamsulosin [Flomax*] 0.4 mg PO BID #60 cap 05/20/22 Ticagrelor [Brilinta*] 90 mg PO BID #60 05/20/22 lisinopriL [Prinivil*] 2.5 mg PO DAILY #15 tab 05/20/22 Aspirin Chewable [Aspirin Chewable*] 81 mg PO DAILY #30 tab.chew 06/20/22 Fluticasone/Salmeterol [Advair 250-50 Diskus] 1 each IH BID #1 kit 06/20/22 Docusate [Colace Cap*] 100 mg PO DAILY PRN #30 cap 07/19/22 Furosemide [Lasix*] 40 mg PO BIDL #60 tab 07/19/22 Melatonin 5 mg PO BEDTIME PRN PRN #20 tab 07/19/22 Metoprolol Tartrate [Lopressor*] 25 mg PO BID 6AM 6PM #60 tab 07/19/22 New Medications: Docusate [Colace Cap*] 100 mg PO DAILY PRN #30 cap PRN Reason: Constipation Furosemide [Lasix*] 40 mg PO BIDL #60 tab Metoprolol Tartrate [Lopressor*] 25 mg PO BID 6AM 6PM #60 tab Melatonin 5 mg PO BEDTIME PRN PRN #20 tab PRN Reason: Insomnia Physician Discharge Instructions: OK TO DC IV AND DC HOME FOLLOW-UP WITH PRIMARY CARE PROVIDER IN 1-2 WEEKS FOLLOW-UP WITH CARDIOLOGY IN 1-2 WEEKS RETURN TO THE ER IF SYMPTOS WORSENS CALL DR. COOK AT [phone] IF ANY QUESTIONS REGARDING HOSPITAL STAY. PLEASE CALL THE FLOOR AT [phone] IF ANY MEDICATION OR NURSING QUESTIONS. Diet: AHA Activity: Fall precautions Followup: NONE,NONE [Primary Care Provider] - Time spent managing pt's care (in minutes): 35
[2022-07-19] MEDS: METOPROLOL TAR 25 MG TAB PO SCH (06:16)
[2022-07-19] MEDS: TAMSULOSIN 0.4 MG SR CAP PO SCH (08:29)
[2022-07-19] MEDS: TICAGRELOR 90 MG TABLET PO SCH (08:29)
[2022-07-19] MEDS: FUROSEMIDE 40 MG TABLET PO SCH (08:29)
[2022-07-19] MEDS: lisinopriL 5 MG TAB PO SCH (08:30)
[2022-07-19] MEDS: ASPIRIN EC 81 MG TAB PO SCH (08:30)
[2022-07-19 11:23] LABS: Absolute Lymphocytes (CBC) 1.8 K/uL (0.7-4.9); Hematocrit 40.3 % (39.6-49.0); Lymphocytes % 15.5 % (15.3-44.8); MCV 88.5 fL (80-100); RBC Red Blood Cell Count 4.55 M/uL (4.33-5.43)
[2022-07-19 11:35] LABS: Magnesium 2.3 mg/dL (1.6-2.4); Potassium 4.7 mmol/L (3.5-5.1)
[2022-07-19 13:00] VITALS: BP 107/65; TEMP 97.7
--- NOTE | 2022-07-19 16:03 | PN ---
Date of Progress Note: 07/19/2022 Subjective: Seen by bedside. Doing clinically well. Does not have any complaints of chest pain or shortness of breath. Review of Systems: No chest pain, shortness of breath, orthopnea, or cough. No nausea, vomiting, or diarrhea. All othe r systems reviewed and they were negative. Physical Examination: Vital Signs: Reviewed. Head and Neck: Pupils are equal, reactive to light. Intact eye movements. No JVD. No cervical lym phadenopathy. Neck is supple. Thyroid is not enlarged. Lungs: Clear to auscultation bilaterally. No rhonchi, rales, or crackles. No accessory muscle use. Heart: Regular rate and rhythm. No extra sounds. Abdomen: Soft, nontender. Bowel sounds positive. No organomegaly. No masses or hernia. No rigidi ty or rebound. Extremities: No clubbing or cyanosis. Intact pulses. Skin: No rash. Neurologic: Alert, awake. No acute focal deficits appreciated. Investigations: BUN is 15, creatinine 1.07, hemoglobin is 13.5, platelet count was 929. Assessment And Recommendations: 1.Acute on chronic systolic heart failure exacerbation. Appears to be euvolemic and he is on oral L asix. From my perspective, patient can be released and follow up as an outpatient. Continue Lasix a t the current dose. 2.Congestive heart failure. Continue Lopressor and lisinopril and to follow up with me in the offic e in 2 weeks and we will plan for adjusting his heart failure medications and obtain a followup echoc ardiogram. 3.Elevated troponin. This is demand ischemia, status post coronary angiogram and all stents are pat ent. 4.Peripheral vascular disease. We will plan for coronary angiogram as an outpatient. From Cardiology standpoint, patient can be released and follow up as an outpatient . SR/MODL Voice ID: [id number] Report ID: [id number]
== END 2022-07-19 15:21 | disposition home or self-care (01) | DRG 280 ==
LOC: ER 20:39 → ERHOLD 07-15 00:21 → 2ND 07-15 02:40
PROVIDERS: ADMIT Hospitalist; ATTEND Hospitalist
PROC: 4A023N7 Measurement of Cardiac Sampling and Pressure, Left Heart, Percutaneous Approach (ICD-10-PCS; principal; 2022-07-15)
PROC: B2111ZZ Fluoroscopy of Multiple Coronary Arteries using Low Osmolar Contrast (ICD-10-PCS; 2022-07-15)
DX: I11.0 Hypertensive heart disease with heart failure (principal); I21.A1 Myocardial infarction type 2; I50.23 Acute on chronic systolic (congestive) heart failure; I97.630 Postprocedural hematoma of a circulatory system organ or structure following a cardiac catheterization; E78.5 Hyperlipidemia, unspecified; K21.9 Gastro-esophageal reflux disease without esophagitis; J43.2 Centrilobular emphysema; I73.9 Peripheral vascular disease, unspecified; I07.1 Rheumatic tricuspid insufficiency; D75.839 Thrombocytosis, unspecified; I25.2 Old myocardial infarction; I25.10 Atherosclerotic heart disease of native coronary artery without angina pectoris; Y83.8 Other surgical procedures as the cause of abnormal reaction of the patient, or of later complication, without mention of misadventure at the time of the procedure; Z88.0 Allergy status to penicillin; Z88.1 Allergy status to other antibiotic agents; Z95.5 Presence of coronary angioplasty implant and graft; Z79.82 Long term (current) use of aspirin; Z90.49 Acquired absence of other specified parts of digestive tract; Z79.899 Other long term (current) drug therapy; Z87.891 Personal history of nicotine dependence; Z20.822 Contact with and (suspected) exposure to COVID-19
CPT/HCPCS: 36415; 71045; 76881; 76937; 80048; 80053; 80061; 83735; 83880; 84484; 85014; 85018; 85025; 87811; 93005; 93454; 96372; 96374; 99285; C1760; C1893; G0269; J0461; J1644; J1650; J1940; J2001; J2250; J2270; J2785; J3010; J7040; Q9966